=== PATIENT | male | born 1940 | race Caucasian/White ===

== ENCOUNTER 2021-11-03 01:11 | Outpatient (CLI) | payer OTHER, SELFPAY ==
--- NOTE | 2021-11-03 11:00 | DI.NM_ITS ---
APPROVED REPORT Exam: Exercise Treadmill Patient Location: Out-Patient Room/Bed: Stress Nurse: Molly Salazar RN Ordering Provider:JOYCE KING MD Contact Number: [phone] BMI: 25.08 Baseline Rhythm: Sinus Rhythm Indications: Ventricular premature depolarization Medical History Medical History: Hypertension, hyperlipidemia, diabetes, CVD, SC, hypothyroidism Cardiac Medications: Metoprolol succinate, amlodipine, aspirin, atorvastatin, entresto, lisinopril Allergies: NKA Cardiac Risk Factors: Hypertension, hyperlipidemia, diabetes, CVD, family hx Previous Cardiac Procedures: pci w/ stent (02/2011) Pretest Chest Pain Characteristics: None Exercise History: Physically active Physical Disabilities: None Lung Sounds: Clear to auscultation Heart Sounds: Regular Stress Test Details Test: Exercise stress testing was performed using a Serge protocol. Nuclear Acquisition: Rest Tc-99m/Stress Tc-99m 1 day Rest Isotope: Tc-99m Sestamibi. Dose: 10.3 Date: 11/03/2021 Injection Time: 1110 Stress Isotope: Tc-99m Sestamibi. Dose: 29.5 Date: 11/03/2021 Injection Time: 1300 HR Resting HR Supine: 75 bpm Max Heart Rate (APMHR): 137.081720 bpm Resting HR Standin bpm Target HR (85% APMHR): 116.616735 bpm Max HR Achieved: 120 bpm % of APMHR: 87.59 Recovery HR: 80 bpm HR response to stress: Normal HR response to stress Comment: Metoprolol succinate not held prior to test. BP Resting BP Supine: 182/90 mmHg Resting BP Standin/90 mmHg Max BP: 192/94 mmHg Recovery BP: 178/80 mmHg BP response to stress: Normal blood pressure response to stress. ECG Resting ECG: Sinus Rhythm Ectopy: Rare multifocal PVCs Stress ECG: Sinus Tachycardia ST Change: Upsloping ST depression Lead(s): II, III, aVF Stage: [address] Deviation: 1 mm Arrhythmia: None Recovery ECG: Sinus Rhythm Recovery ST Change: Horizontal ST depression Lead(s): II, III, aVF Recovery ST Deviation: 0.5-1 mm Recovery Arrhythmia: None Comment: ST depression resolved by minute 6 of recovery Clinical Reason for Termination: Test stopped by stress RN due to pt safety on treadmill Stress Symptoms: None Exercise duration: 5 min39 sec Highest Stage Reached: Stage 2: 2.5 mph at 12% grade. Exercise capacity: 7.05 METs Salgado Treadmill Score: 4.9 Rate Pressure Product: 03810 Stress ECG Conclusion 1. The resting electrocardiogram showed voltage for left ventricular hypertrophy 2. Patient exercised on the Serge protocol and completed a workload of 7.05 METS 3. Normal heart rate and blood pressure response to exercise. The patient achieved 87% of predicted heart rate for age 4. Electrocardiographically the test was notable for 2 to [address] depression in the inferior leads which returned to baseline by minute 6 of recovery 5. There were no significant dysrhythmia 6. See MPI for results Salgado Treadmill Score is 4.9 which is Moderate risk. Stress Test Summary STAGE Time (mins) Speed (mph) Grade (%) HR BP SYMPTOMS METS Supine 75 182/90 Standing 71 178/90 SpO2 97% 1 3 1.7 10 103 182/92 SpO2 97% 4.6 2 6 2.5 12 119 SpO2 97% 7 1 min recovery 83 192/94 SpO2 96% 3 min recovery 81 184/86 SpO2 98% 6 min recovery 80 178/80 SpO2 98% Test stopped by stress RN due to pt safety on treadmill/unsteady gait. MPI Conclusion There is no evidence of myocardial ischemia. The inferobasal segment appears predominantly infarcted , no redistribution EF 36% with inferobasal wall motion abnormality Radiologist Interpretation Radiologist Interpretation by: Refugio Medellin MD Interpretation Date/Time: 11/04/2021 16:28:20
== END 2021-11-03 01:31 ==
PROVIDERS: Visit Provider Internal Medicine Interventional Cardiology
DX: I49.3 Ventricular premature depolarization (principal); I51.7 Cardiomegaly; I10 Essential (primary) hypertension; E78.5 Hyperlipidemia, unspecified; E11.9 Type 2 diabetes mellitus without complications; I25.10 Atherosclerotic heart disease of native coronary artery without angina pectoris; Z82.49 Family history of ischemic heart disease and other diseases of the circulatory system
CPT/HCPCS: 78452; 93017

== ENCOUNTER 2022-04-06 11:44 | Outpatient (CLI) | payer OTHER, SELFPAY ==
--- NOTE | 2022-04-06 11:15 | DI.RAD_ITS ---
Exam(s) XR KNEE RT 3V AP,LAT,LISANDRO EXAM: XR KNEE RT 3V AP,LAT,LISANDRO CLINICAL HISTORY: right knee pain. TECHNIQUE: 2D digital imaging was performed. COMPARISON: No exams were available for comparison FINDINGS: 3 views No evidence of fracture. However, there are there severe advanced osteoarthritic degenerative change s evident in the medial lateral compartments with aakg-kq-yyxh narrowing and there is also medial sub luxation of the femoral condyles on the tibial plateau, by approximately 1.3 cm. Indeed, the medial meniscus (which exhibits chondrocalcinosis and is therefore visible) is subluxed medial to the medial tibial plateau. In addition to oxnk-hj-blmq narrowing of the medial lateral compartments, there is also an element of invagination of the lateral femoral condyle into the tibial plateau. There also loose intra-articul ar bodies laterally in the joint space. Also prominent calcific density is noted in the suprapatella r bursa, this measuring approximately 2 by 2 cm. IMPRESSION: Severe advanced degenerative changes as described above. Joint effusion. Multiple loose intra-articular bodies, the largest measuring approximately 20 x 20 m illimeters and located in the suprapatellar bursa. DATA REPOSITORY: RADIATION DOSE DELIVERED:
--- OUTSIDE RECORDS SUMMARY | 2022-04-06 11:50 | XMS_ITS | Encounter Summary ---
:1940 Author Organization [facility] [place] [address] Care Team Providers Name Role Phone Ahmet Aguilar MD Primary Care Provider Encounter Details Date Type Department Care Team Description 03/12/2011 Abstract Lacie Villagran, RN [address] [place] [id number] Social History Tobacco Use Types Packs/Day Years Used Date Former Smoker 1 10 Comments: had smoked primarily on weeken ds about 1PPD X about 10 years Alcohol Use Standard Drinks/Week Comments No 0 (1 standard drink = 0.6 oz pure alcoho l) stopped drinking 40 years ago Alcohol Habits Answer Date Recorded How often do you have a drink containing Not asked alcohol? How many drinks containing alcohol do you Not asked have on a typical day when you are drinking? How often do you have six or more drinks Not asked on one occasion? Comment: stopped drinking 40 years ago 02/08/2011 Sex Assigned at Date Recorded Not on file documented as of this encounter Plan of Treatment Not on filedocumented as of this encounter Visit Diagnoses Not on filedocumented in this encounter Care Teams Outsole Beveler Relationship Specialty Start Date End Date Ahmet Aguilar MD PCP - General 09/02/10 [address] [place] [phone] documented as of this encounter
--- OUTSIDE RECORDS SUMMARY | 2022-04-06 11:50 | XMS_ITS | Encounter Summary ---
:1940 Author Organization [facility] [place] [address] Care Team Providers Name Role Phone Ahmet Aguilar MD Primary Care Provider Reason for Visit Reason Comments Coronary Artery Disease Encounter Details Date Type Department Care Team Description 03/17/2011 Office Visit [facility] Kev Negron CAD (coronary artery [address] Huerta MD disease) (Primary Dx) [facility] [phone] CARDIOLOGY DEPT. [place] [id number] Social History Tobacco Use Types Packs/Day Years [...] on file documented as of this encounter Progress Notes Teofilo Wiseman - 03/19/2011 10:42 AM EDT Kev Garcia - 03/17/2011 10:52 AM EDT Scanned note [facility] att documented in this encounter Plan of Treatment Not on filedocumented as of this encounter Visit Diagnoses Diagnosis CAD (coronary artery disease) - Primary Coronary atherosclerosis of unspecified type of vessel, [place] or graft documented in this encounter Care Teams Plate Cutter Relationship Specialty Start Date End Date Ahmet Aguilar MD PCP - General 09/02/[address] [place] [phone] documented as of this encounter
--- OUTSIDE RECORDS SUMMARY | 2022-04-06 11:50 | XMS_ITS | Encounter Summary ---
:1940 Author Organization [facility] Address [facility] [place] [address] Care Team Providers Name Role Phone Ahmet Aguilar MD Primary Care Provider Encounter Details Date Type Department Care Team Description 04/15/2012 Office Visit [facility] Kev Negron CAD (coronary artery [address], disease) (Primary Dx) [facility] [place] [phone] CARDIOLOGY DEPT. [place], [place] [address] Social History Tobacco Use Types Packs/Day Years [...] this encounter Progress Notes Teofilo Wiseman - 04/22/2012 4:34 PM EDT NT Kev Negron - 04/15/2012 9:06 AM EDT Subjective: Patient ID: Ken Gomes is a 72 y.o. male. HPI ROS Objective: Physical Exam Assessment and Plan: No problem-specific visit notes found for this encounter. Scanned note documented in this encounter Plan of Treatment Not on filedocumented as of this encounter Visit Diagnoses Diagnosis CAD (coronary artery disease) - Primary Coronary atherosclerosis of unspecified type of vessel, [place] or graft documented in this encounter Care Teams Broommaker Relationship Specialty Start Date End Date Ahmet Aguilar MD PCP - General 09/02/[address] [place] [phone] documented as of this encounter
--- OUTSIDE RECORDS SUMMARY | 2022-04-06 11:50 | XMS_ITS | Encounter Summary ---
:1940 Demographics Home Phone Preferred Language Unknown Marital Status Unknown Shinto Affiliation Unknown Race Unknown Ethnic Group Unknown Author Organization [facility] Address [address] [place] [address] Care Team Providers Name Role Phone Unavailable Primary Care Provider Unavailable Encounter Details Date Type Department Care Team Description 07/19/2020 Lab Requisition [facility] Outr Resulting Lab, Pathology & Laboratory Provider [facility] [address] [place] [address] Social History Tobacco Use Types Packs/Day Years Used Date Never Assessed Sex Assigned at Date Recorded Not on file documented as of this encounter Plan of Treatment Not on filedocumented as of this encounter Procedures Procedure Name Priority Date/Time Associated Diagnosis Comme nts T3, TOTAL Routine 07/19/2020 8:00 EDT Results for this procedure are i n the results section . documented in this encounter Results T3, TOTAL (07/19/2020 8:00 EDT) Pathologist Sig nature T3, Total 116 97 - 169 ng/dL [facility] Specimen Blood - Venous blood (substance) Performing Organization Address City/State/ZIP Code Phon e Number [facility] [address] [place] [address] SERVICES documented in this encounter Visit Diagnoses Not on filedocumented in this encounter
--- OUTSIDE RECORDS SUMMARY | 2022-04-06 11:50 | XMS_ITS | CCD ---
:1940 Author Care Team Providers Name Role Phone ANGELA CHAVEZ Attending Physician Unavailable UNLISTED REQUESTED, PROVIDER - Er Physician 1 Unavailab le Vital Signs Vital Sign Value Unit Date/Time Recent/Initial? BP Systolic 177 mmHg 08/18/2021 09:28 Initial VS BP Diastolic 87 mmHg 08/18/2021 09:28 Initial VS Heart Rate 70 bpm 08/18/2021 09:28 Initial VS O2 % BldC Oximetry 100 % 08/18/2021 09:28 Initi al VS Body Temperature 36.7 degrees 08/18/2021 09:28 Initial VS Allergies Unknown or Not Available. Procedures Unknown or Not Available. History of Immunizations Unknown or Not Available. Problems Unknown or Not Available. Results Unknown or Not Available. Active Medications Unknown or Not Available. Medications Administered During Visit Unknown or Not Available. 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 Discharge Instructions You were admitted to [facility] on 08/18/2021 09:42 with a principal diagnosis of Unilateral post-traumatic osteoarthri tis, right knee You were discharged from [facility] on 08/18/2021 09:42 Should you have any questions prior to d ischarge, please contact a member of your healthcare team. If you have left the ho spital and have any questions, please contact your primary care physician. Chief Complaint and Reason For Visit Chief Complaint Date of Onset KNEE PAIN Function Status Unknown or Not Available. Plan of Care Unknown or Not Available. Referral/Transition of Care Unknown or Not Available.
--- OUTSIDE RECORDS SUMMARY | 2022-04-06 11:50 | XMS_ITS | Encounter Summary ---
:1940 Author Organization [facility] [place] [address] Care Team Providers Name Role Phone Ahmet Aguilar MD Primary Care Provider Reason for Visit Reason Comments Coronary Artery Disease Encounter Details Date Type Department Care Team Description 07/19/2013 Office Visit [facility] Kev Negron CAD (coronary artery [address] Huerta MD disease) (Primary Dx) [facility] [place] [phone] CARDIOLOGY DEPT. [place] [id number] Social History Tobacco Use Types Packs/Day Years [...] documented as of this encounter Progress Notes Provider, Scanning - 07/20/2013 2:49 PM EDT Kev Negron - 07/19/2013 11:12 AM EDT Scanned note documented in this encounter Plan of Treatment Not on filedocumented as of this encounter Visit Diagnoses Diagnosis CAD (coronary artery disease) - Primary Coronary atherosclerosis of unspecified type of vessel, teller or graft documented in this encounter Care Teams Calender Wind Up Tender Relationship Specialty Start Date End Date Ahmet Aguilar MD PCP - General 09/02/[address] [place] [phone] documented as of this encounter
--- OUTSIDE RECORDS SUMMARY | 2022-04-06 11:50 | XMS_ITS | Encounter Summary ---
:1940 Author Organization [facility] [place] [address] Care Team Providers Name Role Phone Ahmet Aguilar MD Primary Care Provider Reason for Visit Reason Comments Coronary Artery Disease Encounter Details Date Type Department Care Team Description 08/16/2012 Office Visit [facility] Kev Negron CAD (coronary artery [address] Huerta MD disease) (Primary Dx) [facility] [phone] CARDIOLOGY DEPT. [place] [id number] Social History Tobacco Use Types Packs/Day Years [...] documented as of this encounter Progress Notes Kev Negron - 08/16/2012 10:23 AM EST Subjective: Patient ID: Ken Gomes is a 72 y.o. male. HPI ROS Objective: Physical Exam Assessment and Plan: No problem-specific visit notes found for this encounter. Scanned note documented in this encounter Plan of Treatment Not on filedocumented as of this encounter Visit Diagnoses Diagnosis CAD (coronary artery disease) - Primary Coronary atherosclerosis of unspecified type of vessel, [place] or graft documented in this encounter Care Teams Cyber Policy And Strategy Planner Relationship Specialty Start Date End Date Ahmet Aguilar MD PCP - General 09/02/10 [address] [place] [phone] documented as of this encounter
--- OUTSIDE RECORDS SUMMARY | 2022-04-06 11:50 | XMS_ITS | Clinical Summary ---
:1940 Author Organization [facility] [place] [address] Care Team Providers Name Role Phone Ahmet Aguilar MD Primary Care Provider Allergies No known active allergies Medications Medication Sig Dispensed Refills Start Date End Date Status amlodipine (NORVASC) 5 Take 5 mg by mouth 0 Active mg tablet daily. lisinopril Take 20 mg by 0 Activ e (PRINIVIL;ZESTRIL) 20 mouth daily. mg tablet triamcinolone Apply topically 2 0 02/08/2011 Active (KENALOG) 0.1 % cream times daily as needed. Active Problems Problem Noted Date HTN (hypertension) 03/12/2011 GERD (gastroesophageal reflux disease) 03/12/2011 Overweight(278.02) 03/12/2011 Elevated blood sugar 03/12/2011 NSTEMI (non-ST elevated myocardial infarction) 011 Overview: Cardiac cath 02/09/[address] to mid circumflex Hyperlipidemia 02/08/2011 Resolved Problems Problem Noted Date Resolved Date Chest pain 02/08/2011 02/10/2011 Family History Medical History Relation Comments Cardiac disease Brother Cerebrovascular Accident Brother Cerebrovascular Accident Father Relation Status Comments Brother Father Mother Social History Tobacco Use Types Packs/Day Years [...] Assigned at Date Recorded Not on file Last Filed Vital Signs Vital Sign Reading Time Taken Comments Blood Pressure 145/80 02/10/2011 7:00 AM EDT Pulse 58 02/10/2011 7:00 AM EDT Temperature 36.8 ??C (98.2 ??F) 02/10/2011 7:00 AM EDT Respiratory Rate 20 02/10/2011 7:00 AM EDT Oxygen Saturation 96% 02/10/2011 7:00 AM EDT Inhaled Oxygen Concentration - - Weight 86.6 kg (190 lb 14.7 oz) 02/10/2011 6:02 AM EDT Height 172.7 cm (5' 8) 02/08/2011 7:38 PM EDT Body Mass Index 29.03 02/08/2011 7:38 PM EDT Plan of Treatment Health Maintenance Due Date Last Done Comments Covid-19 Vaccine (#1) 1943 Tdap adult 1957 Tetanus vaccine 1957 Zoster vaccine (1 of 2) 01/03/1988 Advance Directive 1993 Pneumoccocal Vaccine: 65+ (1 - PCV) 2003 Influenza (Flu) vaccine (1 of 1 - Influenza standard 06/11/2021 series) Advance Directives Latest Code Status on File Code Status Date Activated Date Inactivated Comments Full Code 02/10/2011 1:10 PM Does patient have decision making capacity? Yes, Order is based on Patients wishes. Full Code 02/08/2011 8:57 PM 02/10/2011 1:10 PM Order Status: Initial Order Does patient have decision making capacity? Yes, Order is based on Patients wishes. Care Teams Chemical Dependency Attendant Relationship Specialty Start Date End Date Ahmet Aguilar MD PCP - General 09/02/10 [address] [place] [phone]
--- OUTSIDE RECORDS SUMMARY | 2022-04-06 11:50 | XMS_ITS | Clinical Summary ---
:1940 Demographics Home Phone Preferred Language Unknown Marital Status Unknown Buddhism Affiliation Unknown Race Unknown Ethnic Group Unknown Author Organization [facility] Address [address] [place] [address] Care Team Providers Name Role Phone Unavailable Primary Care Provider Unavailable Social History Tobacco Use Types Packs/Day Years Used Date Never Assessed Sex Assigned at Date Recorded Not on file Plan of Treatment Health Maintenance Due Date Last Done Comments Fall Risk Screening 2003
--- OUTSIDE RECORDS SUMMARY | 2022-04-06 11:50 | XMS_ITS | Encounter Summary ---
:1940 Author Organization [facility] [place] [address] Care Team Providers Name Role Phone Ahmet Aguilar MD Primary Care Provider Reason for Visit Reason Comments Medication Refill Encounter Details Date Type Department Care Team Description 05/02/2011 Refill Intermediate Cardiac Care Unit Lilliam Mcghee APRN [facility] C[facility]OLOGY [facility]PT. [facility] [place] [address] [place] [address] [phone] Social History Tobacco Use Types Packs/Day Years [...] on filedocumented in this encounter Care Teams Biztalk Developer Relationship Specialty Start Date End Date Ahmet Aguilar MD PCP - General 09/02/10 [address] [place] [phone] documented as of this encounter
--- OUTSIDE RECORDS SUMMARY | 2022-04-06 11:50 | XMS_ITS | Encounter Summary ---
:1940 Author Organization [facility] [place] [address] Care Team Providers Name Role Phone Ahmet Aguilar MD Primary Care Provider Reason for Visit Reason Comments Coronary Artery Disease Encounter Details Date Type Department Care Team Description 08/15/2013 Office Visit [facility] Kev Negron CAD (coronary artery [address] Huerta MD disease) (Primary Dx) [facility] [phone] CARDIOLOGY DEPT. [place] [id number] Social History Tobacco Use Types Packs/Day Years [...] this encounter Progress Notes Provider, Scanning - 08/17/2013 11:32 AM EST Kev Negron - 08/15/2013 9:50 AM EST Scanned note documented in this encounter Plan of Treatment Not on filedocumented as of this encounter Visit Diagnoses Diagnosis CAD (coronary artery disease) - Primary Coronary atherosclerosis of unspecified type of vessel, [place] or graft documented in this encounter Care Teams Digital Printer Operator Relationship Specialty Start Date End Date Ahmet Aguilar MD PCP - General 09/02/[address] [place] [phone] documented as of this encounter
--- OUTSIDE RECORDS SUMMARY | 2022-04-06 11:50 | XMS_ITS ---
:1940 Author Care Team Providers Name Role Phone OLIVER KING MD Bank Messenger [phone] ANGELA CHAVEZ MD Primary Care Provider [phone] Allergies Code Code System Name Reaction Severity Status Onset NKDA ? Notes: No seafood allergy. No contrast allergy. Medications Name Status Start Date Stop Date ? ? amlodipine 10 mg tablet Active ? Not avai lable Take 1 tablet every day by oral route for 90 days. amlodipine 5 mg tablet Completed ? 0 Take 1 tablet every day by oral route for 90 days. aspirin 325 mg tablet Completed ? 12/21/2019 Take 1 tablet every day by oral route. aspirin 81 mg capsule Active ? Not availa ble Take 1 capsule every day by oral route. atorvastatin 40 mg tablet Completed ? 2020 TAKE 1 TABLET BY MOUTH ONCE DAILY IN THE EVENING FOR 90 DAYS atorvastatin 80 mg tablet Completed ? 2021 Take 1 tablet every day by oral route. Calcium 500 + D Completed ? 12/21/2019 1 tablet every day cephalexin 500 mg capsule Completed ? 2021 Take 1 capsule every 6 hours by oral route for 7 days. chlorthalidone 25 mg tablet Active ? Not available Take 1 tablet every day by oral route. Entresto 24 mg-26 mg tablet Completed ? 11/12 Take 1 tablet twice a day by oral route. Stop Lisinopril 48 hrs prior to starting Entresto Entresto 49 mg-51 mg tablet Active ? Not available Take 1 tablet twice a day by oral route. Farxiga 10 mg tablet Active ? Not availab le Take 1 tablet every day by oral route. Take 1 tablet once daily. Fish Oil 1,000 mg (120 mg-180 mg) capsule Active ? Not available Take 1 capsule every day by oral route. garlic 1,500 mg capsule Active ? Not avai lable Take 1 capsule every day by oral route. hawthorn han 565 mg capsule Active ? No t available Take by oral route. lisinopril 20 mg tablet Completed ? 01/30/20 21 TAKE 1 TABLET BY MOUTH ONCE DAILY FOR 90 DAYS lisinopril 40 mg tablet Completed ? 10/28/19 22 Take 1 tablet every day by oral route. metformin 500 mg tablet Completed ? 07/25/20 18 Take 2 tablets twice a day by oral route for 90 days. metoprolol succinate ER 25 mg tablet,extended release 24 hr Acti ve ? Not available Take one tablet by mouth once daily metoprolol succinate ER 50 mg capsule sprinkle, ext. release 24 hr Completed ? 07/25/2019 Take 1 capsule every day by oral route for 90 days. metoprolol succinate ER 50 mg tablet,extended release 24 hr Comp leted ? 11/07/2019 Take 1 tablet every day by oral route for 90 days. metoprolol tartrate 100 mg tablet Completed 11/12/2009 09/02/2010 multivitamin Active ? Not available 1 tablet daily Plavix 75 mg tablet Completed 09/08/2011 03/08/2012 1 Tablet: daily Pravachol 40 mg tablet Completed 02/18/2011 1 1 (one) Tablet: daily simvastatin 40 mg tablet Completed ? 020 Take 1 tablet every day by oral route for 90 days. triamcinolone acetonide 0.1 % topical cream Completed 11/201204/26/2015 1 (one) Application(s): two times daily, as needed Viagra 100 mg tablet Completed ? 12/21/2019 Take 1 tablet every day by oral route as needed for 90 days. vitamin E (dl, acetate) 180 mg (400 unit) capsule Completed ? 12/21/2019 Take 1 capsule every day by oral route. zinc Completed ? 12/21/2019 1 every day Notes: takes balsamic vinegar. Problems Name Status Onset Date Source ? Coronary Arteriosclerosis in [place] Artery Active 07/25 ? Osteoarthritis Active 08/15/2021 ? Administration of Influenza Vaccine Active 08/15/2021 ? Adult Health Examination Active 08/15/2021 ? Hypothyroidism Active ? History Type 2 Diabetes Mellitus without Complication Active ? History Mixed Hyperlipidemia Active ? History Impotence Active ? History Hypertensive Disorder Active ? History Myocardial Infarction Unknown ? History Flexural Psoriasis Active ? History Adult Health Examination Unknown ? History Screening for Malignant Neoplasm of Prostate Unknown ? History Procedures Date Name Performed by ? 02/09/2011 Cardiac Catheterization Information not available Notes: mid LCX stent ? Appendectomy Information not avai lable 07/28/2021 US, Echocardiogram, Transthoracic, [facility] Radiology (Internal) Complete [address], [place] [id number] (Work Place) 07/28/2021 Holter Monitor [facility] Cardio pulmonary [address], [place] [phone] (Work Place) 08/15/2021 XR, Knee, 4 or More View [facility] - Radiology [address] [facility], [place] [address] (Work Place) 10/28/2021 Pharmacologic Nuclear Stress Test Xray N [facility] [address] [place], [place] [address] (Work Place) Results Lab Results Date Name Specimen Result Interpretation Description Value Range Status Address ? 12/22/2021 CBC W/ Auto BLD ? Wbc 7.7 10*3/uL 5.0-10.0 F inal [place] Diff 10*3/uL [facility] L ab (Internal) : [address] t ? ? BLD ? Rbc 5.35 10*6/uL 4.60-6.00 Final N orth 10*6/uL [facility] L ab (Internal) : [address] t ? ? BLD ? Hgb 14.2 g/dL 14.0-18.0 Final Nort h g/dL [facility] L ab (Internal) : [address] t ? ? BLD ? Hct 45.1 % 41.0-51.[address] [facility] L ab (Internal) : [address] t ? ? BLD ? Mcv 84.3 fL 80.0-96.0 Final [facility] L ab (Internal) : [address] t ? ? BLD ? Mch 26.5 pg 26.0-32.0 Final [facility] (Internal) : [address] t ? ? BLD ? Mchc 31.5 g/dL 31.0-35.0 Final Nort h g/dL [facility] L ab (Internal) : [address] ? ? BLD High Rdw 16.1 % 11.5-14.5 Final [facility] L ab (Internal) : [address] ? ? BLD ? Plt 296 10*3/uL 130-450 Final Nort h 10*3/uL [facility] L ab (Internal) : [address] ? ? BLD ? Anc 5.56 10*3/uL ? Final Nort h [facility] L ab (Internal) : [address] ? ? BLD High Nlr 4.15 0.00-3.20 Final [facility] L ab (Internal) : [address] t ? ? BLD ? Neutro 71.9 % 40.0-75.[address] [facility] L ab (Internal) : [address] ? ? BLD Low Lymph 17.3 % 20.0-50.[address] [facility] L ab (Internal) : [address] ? ? BLD ? [place] 8.5 % 2.0-10.[address] [facility] L ab (Internal) : [address] ? ? BLD ? Eos 1.7 % 1.0-6.0 % Final [facility] L ab (Internal) : [address] ? ? BLD ? Baso 0.3 % 0.0-1.0 % Final [facility] L ab (Internal) : [address] ? ? BLD ? Ig 0.3 % 0.0-0.9 % Final [facility] L ab (Internal) : [address] t 12/22/2021 Renal S High g/r 124 mg/dL 74-106 Final Nor th Function mg/dL [facility] L ab Serum (Internal) : [address] t ? ? S High Bun 25 mg/dL 7-18 Final North mg/dL [facility] L ab (Internal) : [address] t ? ? S High Crea 1.5 mg/dL 0.7-1.3 Final North mg/dL [facility] L ab (Internal) : [address] ? ? S ? Ca 9.2 mg/dL 8.5-10.1 Final [facility] mg/dL [facility] (Internal) : [address] t ? ? S ? Phos 3.6 mg/dL 2.6-4.7 Final [facility] mg/dL [facility] (Internal) : [address] t ? ? S Low Na 135 mmol/L 136-145 Final [place] mmol/L [facility] (Internal) : [address] t ? ? S ? K 4.5 mmol/L 3.5-5.1 Final [facility] mmol/L [facility] (Internal) : [address] t ? ? S ? Cl 100 mmol/l 98-107 Final [place] mmol/l [facility] L ab (Internal) : [address] t ? ? S ? Tco2 27.7 mmol/L 21.0-32.0 Final No rth mmol/L [facility] (Internal) : [address] t ? ? S ? Alb 3.8 g/dL 3.4-5.0 Final [facility] g/dL [facility] (Internal) : [address] t ? ? S Low GFR 46 >89 Final [place] (Calc) [facility] L ab (Internal) : [address] 12/22/2021 Hepatic S ? Tbil 0.40 mg/dL 0.20-1.00 Final North Function mg/dL [facility] L ab Serum (Internal) : [address] t ? ? S ? Dbil 0.10 mg/dL 0.00-0.20 Final Nor th mg/dL [facility] (Internal) : [address] t ? ? S ? Alp 110 U/L 46-116 Final North U/L [facility] L ab (Internal) : [address] t ? ? S ? Alt 19 U/L 16-63 U/L Final [place] (Sgpt) [facility] L ab (Internal) : [address] t ? ? S ? Ast 16 U/L 15-37 U/L Final [place] (Sgot) [facility] L ab (Internal) : [address] t ? ? S ? Ggt 20 U/L 15-85 U/L Final [facility] L ab (Internal) : [address] t ? ? S ? Tp 8.1 g/dL 6.4-8.2 Final [place] g/dL [facility] L ab (Internal) : [address] t ? ? S ? Alb 3.8 g/dL 3.4-5.0 Final [place] g/dL [facility] L ab (Internal) : [address] 12/22/2021 BNP (B-type S ? Nt-bnp 332 pg/mL 0-450 Leandra l [place] Natriuretic pg/mL Count ry Peptide), Hospita l Lab Prohormone (Inter nal): N-terminal, [address], [place] Immunoassay , Blood 08/15/2021 Urinalysis, UR ? UA-color yellow pale Final [place] Dipstick, yellow [facility] L ab Micro (Internal) : [address] ? ? UR ? UA-appear clear clear Final [facility] ab (Internal) : [address] t ? ? UR ? UA-spec 1.020 1.003-1.0 Final [place] Grav 35 [facility] L ab (Internal) : [address] ? ? UR ? UA-pH 6.5 [pH] 4.6-8.0 Final [place] [pH] [facility] ab (Internal) : [address] ? ? UR ABNORMAL UA-leuk moderate negative Final No rth Est [facility] L ab (Internal) : [address] t ? ? UR ? UA-nitrit negative negative Final No rth e [facility] L ab (Internal) : [address] ? ? UR ? UA-prot negative negative Final Nort [facility] L ab (Internal) : [address] t ? ? UR ? UA-gluc negative negative Final Nort [facility] L ab (Internal) : [address] ? ? UR ? UA-ketone negative negative Final No rth [facility] L ab (Internal) : [address] ? ? UR ? UA-urobil normal normal Final [facility] ab (Internal) : [address] ? ? UR ? UA-bili negative negative Final Nort [facility] (Internal) : [address] ? ? UR ? UA-blood negative negative Final [facility] (Internal) : [address] 08/15/2021 Urinalysis, UR ABNORMAL UA-WBC 10-25 [hpf] 0-3 [hp f] Final [place] Microscopic Count [facility] ab (Internal) : [address] ? ? UR ? UA-RBC 0-2 [hpf] 0-2 [hpf] Final [facility] ab (Internal) : [address] ? ? UR ABNORMAL UA-bacter few [hpf] none seen Final [place] ia [hpf] [facility] (Internal) : [address] ? ? UR ? UA-epithe rare [hpf] none seen Final [place] lial [hpf] [facility] (Internal) : [address] ? ? UR ? UA-mucus none seen none seen Final N orth [hpf] [hpf] [facility] (Internal) : [address] 08/15/2021 Culture UR ? Final microbiology ? Final [place] (Burns results [facility] Lab Urine (Internal) : [address] 08/15/2021 Urinalysis, ? Color Yellow ? ? P _nc Primary Dipstick, Care Reflex [place]l [place] Micro ns: [address], [place] ? ? ? Appearanc Clear ? ? P_nc P rimary e Care [place]l ea ns: [address], [place] ? ? ? Glucose Normal ? ? P_nc Afshan lexie Care [place]l ea ns: [address], [place] ? ? ? Bilirubin Negative ? ? P_nc Primary Care [place]l ea ns: [address], [place] ? ? ? Ketones Negative ? ? P_nc P rimary Care [place]l ea ns: [address], [place] ? ? ? Specific 1.020 ? ? P_nc Pr imary [place] Care [place]a ns: [address], [place] ? ? ? Blood Negative ? ? P_nc Afshan lexie Care [place]l ea ns: [address], [place] ? ? ? Ph 6.5 ? ? P_nc Prima ry Care [place]l ea ns: [address], [place] ? ? ? Protein Trace ? ? P_nc Afshan lexie Care [place]l ea ns: [address], [place] ? ? ? Urobilino 0.2 ? ? P_nc P rimary gen Care [place]l ea ns: [address], [place] ? ? ? Nitrite negative ? ? P_nc P rimary Care [place]l ea ns: [address], [place] ? ? ? Leukocyte Moderate ? ? P_nc Primary Esterase Care [place]l ea ns: [address], [place] 07/28/2021 CBC W/ Auto BLD ? Wbc 6.8 10*3/uL 5.0-10.0 F inal [place] Diff 10*3/uL [facility] (Internal[facility] : [address] ? ? BLD ? Rbc 5.29 10*6/uL 4.60-6.00 Final N orth 10*6/uL [facility] (Internal) : [address] ? ? BLD Low Hgb 12.9 g/dL 14.0-18.0 Final Nort h g/dL [facility] L ab (Internal) : [address] ? ? BLD ? Hct 42.7 % 41.0-51.[address] [facility] L ab (Internal) : [address] ? ? BLD ? Mcv 80.7 fL 80.0-96.0 Final [facility] L ab (Internal) : [address] ? ? BLD Low Mch 24.4 pg 26.0-32.0 Final [facility] (Internal) : [address] ? ? BLD Low Mchc 30.2 g/dL 31.0-35.0 Final Nort h g/dL [facility] L ab (Internal) : [address] t ? ? BLD High Rdw 18.7 % 11.5-14.[address] [facility] L ab (Internal) : [address] ? ? BLD ? Plt 303 10*3/uL 130-450 Final Nort h 10*3/uL [facility] L ab (Internal) : [address] t ? ? BLD ? Anc 4.63 10*3/uL ? Final Nort h [facility] L ab (Internal) : [address] ? ? BLD High Nlr 3.76 0.00-3.20 Final [facility] L ab (Internal) : [address] ? ? BLD ? Neutro 68.7 % 40.0-75.[address] [facility] L ab (Internal) : [address] ? ? BLD Low Lymph 18.2 % 20.0-50.[address] [facility] L ab (Internal) : [address] ? ? BLD ? [place] 9.2 % 2.0-10.[address] [facility] L ab (Internal) : [address] ? ? BLD ? Eos 3.1 % 1.0-6.0 % Final [facility] L ab (Internal) : [address] ? ? BLD ? Baso 0.7 % 0.0-1.0 % Final [facility] L ab (Internal) : [address] ? ? BLD ? Ig 0.1 % 0.0-0.9 % Final [facility] L ab (Internal) : [address] t 07/28/2021 RBC BLD ? An[place] small ? Final [place] Morphology, Count Blood Hospital L ab (Internal) : [address] t 07/28/2021 Renal S High g/r 123 mg/dL 74-106 Final Nor th Function mg/dL [facility] L ab Serum (Internal) : [address] ? ? S ? Bun 12 mg/dL 7-18 Final North mg/dL [facility] L ab (Internal) : [address] ? ? S ? Crea 1.1 mg/dL 0.7-1.3 Final [facility] mg/dL [facility] (Internal) : [address] t ? ? S ? Ca 9.2 mg/dL 8.5-10.1 Final [facility] mg/dL [facility] (Internal) : [address] ? ? S ? Phos 2.9 mg/dL 2.6-4.7 Final North mg/dL [facility] L ab (Internal) : [address] t ? ? S ? Na 139 mmol/L 136-145 Final [place] mmol/L [facility] L ab (Internal) : [address] t ? ? S ? K 4.6 mmol/L 3.5-5.1 Final [place] mmol/L [facility] L ab (Internal) : [address] t ? ? S ? Cl 105 mmol/l 98-107 Final [place] mmol/l [facility] L ab (Internal) : [address] t ? ? S ? Tco2 27.2 mmol/L 21.0-32.0 Final No rth mmol/L [facility] (Internal) : [address] t ? ? S ? Alb 3.7 g/dL 3.4-5.0 Final [place] g/dL [facility] (Internal) : [address] ? ? S Low GFR 67 >89 Final [place] (Calc) [facility] L ab (Internal) : [address] t 07/28/2021 Magnesium, S ? mg 2.2 mg/dL 1.8-2.4 Final [place] QN, Serum mg/dL Country or Plasma Hospita l Lab (Internal) : [address] t 07/28/2021 Troponin I, S ? Trop 10.27 pg/mL 0.00-60.4 Final [place] Serum or 0 pg/mL [facility] Plasma Hospital L ab (Internal) : [address] 07/28/2021 BNP (B-type S High Nt-bnp 554 pg/mL 0-450 Leandra l [place] Natriuretic pg/mL Count ry Peptide), Hospita l Lab Prohormone (Inter nal): N-terminal, [address], [place] Immunoassay , Blood 07/28/2021 TSH, Serum S High Tsh 5.90 uIU/mL 0.36-3.74 F inal North or Plasma uIU/mL [facility] L [facility] (Internal) : [address] 04/30/2021 Hepatic S ? Tbil 0.3 mg/dL 0.2-1.3 Final N orth Function mg/dL [facility] L ab Serum (Internal) : [address] ? ? S ? Dbil 0.1 mg/dL 0.0-0.3 Final North mg/dL [facility] L ab (Internal) : [address] t ? ? S ? Alp 93 U/L 38-126 Final North U/L [facility] L ab (Internal) : [address] t ? ? S Low Alt 12 U/L 21-72 U/L Final [place] (Sgpt) [facility] L ab (Internal) : [address] t ? ? S ? Ast 29 U/L 17-59 U/L Final [place] (Sgot) [facility] L ab (Internal) : [address] t ? ? S ? Ggt 19 U/L 15-73 U/L Final [facility] L ab (Internal) : [address] t ? ? S ? Tp 7.4 g/dL 6.3-8.2 Final North g/dL [facility] L ab (Internal) : [address] t ? ? S ? Alb 4.1 g/dL 3.5-5.0 Final [place] g/dL [facility] L ab (Internal) : [address] 04/30/2021 Lipid S ? Chol 162 mg/dL 50-200 Final Nor th Panel, mg/dL [facility] L ab (Internal) : [address] t ? ? S High Trig 183 mg/dL 10-150 Final North mg/dL [facility] L ab (Internal) : [address] t ? ? S ? Hdl 41 mg/dL 40-60 Final North mg/dL [facility] L ab (Internal) : [address] t ? ? S ? Ldl 84 mg/dL 0-130 Final [place] mg/dL [facility] L ab (Internal) : [address] 01/29/2021 Lipid S High Chol 210 mg/dL 50-200 Final Nor th Panel, mg/dL [facility] L ab (Internal) : [address] t ? ? S High Trig 359 mg/dL 10-150 Final North mg/dL [facility] L ab (Internal) : [address] t ? ? S ? Hdl 47 mg/dL 40-60 Final [place] mg/dL [facility] L ab (Internal) : [address] t ? ? S ? Ldl 91 mg/dL 0-130 Final [place] mg/dL [facility] L ab (Internal) : [address] 01/29/2021 Hepatic S ? Tbil 0.3 mg/dL 0.2-1.3 Final N orth Function mg/dL [facility] L ab Serum (Internal) : [address] t ? ? S ? Dbil 0.2 mg/dL 0.0-0.3 Final [place] mg/dL [facility] L ab (Internal) : [address] t ? ? S ? Alp 112 U/L 38-126 Final [place] U/L [facility] L ab (Internal) : [address] t ? ? S Low Alt 12 U/L 21-72 U/L Final [place] (Sgpt) [facility] L ab (Internal) : [address] t ? ? S ? Ast 30 U/L 17-59 U/L Final [place] (Sgot) [facility] L ab (Internal) : [address] t ? ? S ? Ggt 25 U/L 15-73 U/L Final [facility] L ab (Internal) : [address] t ? ? S ? Tp 7.4 g/dL 6.3-8.2 Final [place] g/dL [facility] L ab (Internal) : [address] t ? ? S ? Alb 4.1 g/dL 3.5-5.0 Final [place] g/dL [facility] L ab (Internal) : [address] 07/19/2020 CBC W/ Auto BLD ? Wbc 6.4 10*3/uL 5.0-10.0 F inal [place] Diff 10*3/uL [facility] (Internal) : [address] ? ? BLD ? Rbc 5.29 10*6/uL 4.60-6.00 Final N orth 10*6/uL [facility] L ab (Internal) : [address] ? ? BLD ? Hgb 15.2 g/dL 14.0-18.0 Final Nort h g/dL [facility] L ab (Internal) : [address] ? ? BLD ? Hct 47.8 % 41.0-51.[address] [facility] L ab (Internal) : [address] ? ? BLD ? Mcv 90.4 fL 80.0-96.0 Final [facility] L ab (Internal) : [address] ? ? BLD ? Mch 28.7 pg 26.0-32.0 Final [facility] (Internal) : [address] ? ? BLD ? Mchc 31.8 g/dL 31.0-35.0 Final Nort h g/dL [facility] L ab (Internal) : [address] ? ? BLD ? Rdw 14.2 % 11.5-14.[address] [facility] L ab (Internal) : [address] ? ? BLD ? Plt 284 10*3/uL 130-450 Final Nort h 10*3/uL [facility] L ab (Internal) : [address] ? ? BLD ? Anc 3.71 10*3/uL ? Final Nort h [facility] L ab (Internal) : [address] ? ? BLD ? Nlr 2.21 0.00-3.20 Final [facility] L ab (Internal) : [address] ? ? BLD ? Neutro 57.6 % 40.0-75.[address] [facility] L ab (Internal) : [address] ? ? BLD ? Lymph 26.1 % 20.0-50.[address] [facility] L ab (Internal) : [address] ? ? BLD High [place] 10.9 % 2.0-10.0 Final [facility] % [facility] (Internal) : [address] ? ? BLD ? Eos 4.5 % 1.0-6.0 % Final [facility] L ab (Internal) : [address] ? ? BLD ? Baso 0.6 % 0.0-1.0 % Final [facility] L ab (Internal) : [address] ? ? BLD ? Ig 0.3 % 0.0-0.9 % Final [facility] L ab (Internal) : [address] 07/19/2020 CMP, Serum S High g/r 138 mg/dL 74-106 Final North or Plasma mg/dL [facility] (Internal) : [address] ? ? S ? Bun 15 mg/dL 9-20 Final [place] mg/dL [facility] (Internal) : [address] ? ? S ? Crea 0.90 mg/dL 0.66-1.25 Final Nor th mg/dL [facility] (Internal) : [address] ? ? S ? Ca 9.3 mg/dL 8.4-10.2 Final [place] mg/dL [facility] (Internal) : [address] ? ? S ? Na 141 mmol/L 137-145 Final [place] mmol/L [facility] (Internal) : [address] ? ? S ? K 4.3 mmol/L 3.5-5.1 Final [place] mmol/L [facility] (Internal) : [address] ? ? S ? Cl 105 mmol/L 98-107 Final [place] mmol/L [facility] (Internal) : [address] ? ? S ? Tco2 24.0 mmol/L 22.0-30.0 Final No rth mmol/L [facility] (Internal) : [address] ? ? S ? Tp 7.9 g/dL 6.3-8.2 Final [place] g/dL [facility] (Internal) : [address] ? ? S ? Alb 4.5 g/dL 3.5-5.0 Final [place] g/dL [facility] (Internal) : [address] ? ? S ? Tbil 0.6 mg/dL 0.2-1.3 Final [place] mg/dL [facility] (Internal) : [address] ? ? S ? Alp 96 U/L 38-126 Final [place] U/L [facility] L ab (Internal) : [address] ? ? S Low Alt 17 U/L 21-72 U/L Final [place] (Sgpt) [facility] L ab (Internal) : [address] t ? ? S ? Ast 30 U/L 17-59 U/L Final [place] (Sgot) [facility] L ab (Internal) : [address] [facility] 07/19/2020 Lipid S High Chol 228 mg/dL 50-200 Final Nor th Panel, mg/dL [facility] Serum [facility] L ab (Internal) : [address] ? ? S High Trig 166 mg/dL 10-150 Final [place] mg/dL [facility] L ab (Internal) : [address] t ? ? S ? Hdl 45 mg/dL 40-60 Final [place] mg/dL [facility] L ab (Internal) : [address] t ? ? S High Ldl 150 mg/dL 0-130 Final North mg/dL [facility] (Internal) : [address] [facility] HbA1C BLD High Ha1C 6.5 % 4.0-6.0 % Final Nor th (Hemoglobin Count ry a1C), Blood Hospi jose Lab (Internal) : [address] [facility] 07/19/2020 T4, Free, S ? Ft4 0.90 NG/dL 0.78-2.19 Fin al [place] Serum NG/dL [facility] L [facility] (Internal) : [address] 07/19/2020 Microalbumi UR High Malb 95.1 mg/L 5.0-16.7 Fin al [place] n, Urine mg/L [facility] (Internal) : [address] t ? ? UR ? U-crea, 74 mg/dL 30-125 Final North Spot mg/dL [facility] (Internal) : [address] ? ? UR High Microalb/ 128.7 ug/mg 0.0-30.0 Final North crea Ratio ug/mg Countr y [facility] [address] [facility] TSH, Serum S High Tsh 7.70 u[IU]/mL 0.47-4.68 Final [place] or Plasma u[IU]/mL Count Hospital L ab (Internal) : [address] [facility] 07/19/2020 PSA, Serum S ? PSA Scrn 1.7 NG/mL 0.0-4.0 Fi nal [place] or Plasma NG/mL [facility] L ab (Internal) : [address] [facility] 07/19/2020 T3, Total, S ? T3, Total 116 NG/dL 97-169 Fi nal [place] Serum NG/dL [facility] (Internal) : [address] 07/20/2019 Lipid S High Chol 223 mg/dL 50-200 Final Nor th Panel, mg/dL [facility] L ab (Internal) : [address] ? ? S High Trig 185 mg/dL 10-150 Final [place] mg/dL [facility] L ab (Internal) : [address] t ? ? S Low Hdl 38 mg/dL 40-60 Final [place] mg/dL [facility] (Internal) : [address] t ? ? S High Ldl 148 mg/dL 0-130 Final [place] mg/dL [facility] (Internal) : [address] 07/20/2019 CMP, Serum S High g/r 112 mg/dL 74-106 Final [place] or Plasma mg/dL [facility] (Internal) : [address] t ? ? S - Bun 16 mg/dL 9-20 Final [place] mg/dL [facility] (Internal) : [address] t ? ? S - Crea 0.90 mg/dL 0.66-1.25 Final Nor th mg/dL [facility] (Internal) : [address] t ? ? S - Ca 9.1 mg/dL 8.4-10.2 Final [facility] mg/dL [facility] : [address] t ? ? S - Na 142 mmol/L 137-145 Final [place] mmol/L [facility] ([facility]) : [address] t ? ? S - K 5.1 mmol/L 3.5-5.1 Final [place] mmol/L [facility] ([facility]) : [address] t ? ? S High Cl 108 mmol/L 98-107 Final [place] mmol/L [facility] ([facility]) : [address] t ? ? S - Tco2 24.0 mmol/L 22.0-30.0 Final No rth mmol/L [facility] (Internal) : [address] t ? ? S - Tp 7.2 g/dL 6.3-8.2 Final [place] g/dL [facility] ([facility]) : [address] t ? ? S - Alb 3.8 g/dL 3.5-5.0 Final [place] g/dL [facility] ([facility]) : [address] t ? ? S - Tbil 0.4 mg/dL 0.2-1.3 Final [place] mg/dL [facility] ([facility]) : [address] t ? ? S - Alp 93 U/L 38-126 Final [place] U/L [facility] ([facility]) : [address] t ? ? S - Alt 29 U/L 21-72 U/L Final [place] (Sgpt) [facility] (Internal) : [address] t ? ? S - Ast 35 U/L 17-59 U/L Final [place] (Sgot) [facility] (Internal) : [address] t 07/18/2018 CBC W/ Auto BLD - Wbc 7.9 10*3/uL 5.0-10.0 F inal [place] Diff 10*3/uL [facility] (Internal) : [address] ? ? BLD - Rbc 5.45 10*6/uL 4.60-6.00 Final N orth 10*6/uL [facility] (Internal) : [address] t ? ? BLD - Hgb 15.7 g/dL 14.0-18.0 Final Nort h g/dL [facility] (Internal) : [address] ? ? BLD - Hct 49.1 % 41.0-51.0 Final [facility] L [facility] (Internal) : [address] ? ? BLD - Mcv 90.1 fL 80.0-96.0 Final [facility] L ab (Internal) : [address] ? ? BLD - Mch 28.8 pg 26.0-32.0 Final [facility] L [facility] (Internal) : [address] ? ? BLD - Mchc 32.0 g/dL 31.0-35.0 Final Nort h g/dL [facility] (Internal) : [address] ? ? BLD - Rdw 14.0 % 11.5-14.[address] [facility] L ab (Internal) : [address] ? ? BLD - Plt 258 10*3/uL 130-450 Final Nort h 10*3/uL [facility] (Internal) : [address] t ? ? BLD - Anc 5.51 10*3/uL ? Final Nort h [facility] (Internal) : [address] ? ? BLD - Neutro 70.0 % 40.0-75.[address] [facility] L ab (Internal) : [address] ? ? BLD Low Lymph 15.9 % 20.0-50.0 Final [facility] L [facility] (Internal) : [address] ? ? BLD - [place] 8.2 % 2.0-10.0 Final [facility] (Internal) : [address] ? ? BLD - Eos 4.9 % 1.0-6.0 % Final [facility] L ab (Internal) : [address] ? ? BLD - Baso 0.6 % 0.0-1.0 % Final [facility] L [facility] (Internal) : [address] ? ? BLD - Ig 0.4 % 0.0-0.9 % Final [place] [facility] (Internal) : [address] 07/18/2018 Lipid S High Chol 235 mg/dL 50-200 Final Nor th Panel, mg/dL [facility] ([facility] : [address] ? ? S High Trig 209 mg/dL 10-150 Final [place] mg/dL [facility] ([facility]) : [address] ? ? S - Hdl 42 mg/dL 40-60 Final [place] mg/dL [facility] (Internal) : [address] ? ? S High Ldl 151 mg/dL 0-130 Final [place] mg/dL [facility] (Internal) : [address] 07/18/2018 CMP, Serum S High g/r 133 mg/dL 74-106 Final [place] or Plasma mg/dL [facility] (Internal) : [address] ? ? S - Bun 15 mg/dL 9-20 Final [place] mg/dL [facility] (Internal) : [address] ? ? S - Crea 1.00 mg/dL 0.66-1.25 Final [place] mg/dL [facility] (Internal) : [address] ? ? S - Ca 9.3 mg/dL 8.4-10.2 Final [place] mg/dL [facility] (Internal) : [address] ? ? S - Na 139 mmol/L 137-145 Final [place] mmol/L [facility] (Internal) : [address] ? ? S - K 4.2 mmol/L 3.5-5.1 Final [place] mmol/L [facility] (Internal) : [address] ? ? S - Cl 103 mmol/L 98-107 Final [place] mmol/L [facility] (Internal) : [address] ? ? S - Tco2 29.0 mmol/L 22.0-30.0 Final No rth mmol/L [facility] (Internal) : [address] ? ? S - Tp 7.7 g/dL 6.3-8.2 Final [place] g/dL [facility] (Internal) : [address] ? ? S - Alb 4.3 g/dL 3.5-5.0 Final [place] g/dL [facility] (Internal) : [address] [place] ? ? S - Tbil 0.7 mg/dL 0.2-1.3 Final [place] mg/dL [facility] (Internal) : [address] ? ? S - Alp 91 U/L 38-126 Final [place] U/L [facility] L [facility] (Internal) : [address] [place]io ? ? S Low Alt 19 U/L 21-72 U/L Final [place] (Sgpt) [facility] (Internal) : [address] [place] ? ? S - Ast 35 U/L 17-59 U/L Final [place] (Sgot) [facility] (Internal) : [address] 07/18/2018 T4, Free, S - Ft4 1.03 NG/dL 0.78-2.19 Fin al [place] Serum NG/dL [facility] (Internal) : [address] [place] 07/18/2018 Microalbumi UR High Malb 138.7 mg/L 5.0-16.7 Fi nal [place] n, Urine mg/L [facility] (Internal) : [address] [place]io ? ? UR - U-crea, 79 mg/dL 30-125 Final [place] Spot mg/dL [facility] (Internal) : [address] t ? ? UR High Microalb/ 175.6 ug/mg 0.0-30.0 Final [place] crea Ratio ug/mg [facility] L [facility] (Internal) : [address] 07/18/2018 HbA1C BLD High Ha1C 6.9 % 4.0-6.0 % Final [facility] th (Hemoglobin Count ry a1C), Blood Hospi jose Lab (Internal) : [address] 07/18/2018 TSH, Serum S - Tsh 4.52 u[IU]/mL 0.47-4.68 Final [place] or Plasma u[IU]/mL [facility] L [facility] (Internal) : [address] 07/18/2018 T3, Total, S - T3, Total 124 NG/dL 97-169 Fi nal [place] Serum NG/dL [facility] (Internal) : [address] 12/01/2017 Microalbumi UR High Malb 78.0 mg/L 5.0-16.7 Fin al [place] n, Urine mg/L [facility] (Internal) : [address] ? ? UR ? U-crea, 90 mg/dL 30-125 Final [place] Spot mg/dL [facility] (Internal) : [address] ? ? UR High Microalb/ 86.6 ug/mg 0.0-30.0 Final [place] crea Ratio ug/mg Countr y Hospital L ab (Internal) : [address] 12/01/2017 PSA, Serum S ? PSA Scrn 1.6 NG/mL 0.0-4.0 Fi [facility] or Plasma NG/mL [facility] (Internal) : [address] 12/01/2017 Lipid S High Chol 216 mg/dL 50-200 Final Nor th Panel, mg/dL [facility] L [facility] (Internal) : [address] ? ? S High Trig 162 mg/dL 10-150 Final [place] mg/dL [facility] (Internal) : [address] t ? ? S ? Hdl 44 mg/dL 40-60 Final [place] mg/dL [facility] (Internal) : [address] t ? ? S High Ldl 140 mg/dL 0-130 Final [place] mg/dL [facility] (Internal) : [address] 12/01/2017 CBC W/ Auto BLD ? Wbc 6.9 10*3/uL 5.0-10.0 F inal [place] Diff 10*3/uL [facility] L [facility] (Internal) : [address] ? ? BLD ? Rbc 5.63 10*6/uL 4.60-6.00 Final N orth 10*6/uL [facility] L [facility] (Internal) : [address] ? ? BLD ? Hgb 16.2 g/dL 14.0-18.0 Final Nort h g/dL [facility] L [facility] (Internal) : [address] ? ? BLD ? Hct 50.5 % 41.0-51.0 Final [facility] L [facility] (Internal) : [address] ? ? BLD ? Mcv 89.7 fL 80.0-96.0 Final [facility] L ab (Internal) : [address] , [place] [address] ? ? BLD ? Mch 28.8 pg 26.0-32.0 Final [facility] L ab (Internal) : [address] ? ? BLD ? Mchc 32.1 g/dL 31.0-35.0 Final Nort h g/dL [facility] L [facility] (Internal) : [address] ? ? BLD ? Rdw 13.7 % 11.5-14.[address] [facility] L ab (Internal) : [address] ? ? BLD ? Plt 247 10*3/uL 130-450 Final Nort h 10*3/uL [facility] L [facility] (Internal) : [address] ? ? BLD ? Anc 4.59 10*3/uL ? Final Nort h [facility] L [facility] (Internal) : [address] ? ? BLD ? Neutro 66.4 % 40.0-75.0 Final [facility] L [facility] (Internal) : [address] ? ? BLD Low Lymph 19.8 % 20.0-50.0 Final [facility] L [facility] (Internal) : [address] ? ? BLD ? [place] 9.5 % 2.0-10.[address] [facility] L ab (Internal) : [address] ? ? BLD ? Eos 3.3 % 1.0-6.0 % Final [facility] L ab (Internal) : [address] ? ? BLD ? Baso 0.7 % 0.0-1.0 % Final [facility] L [facility] (Internal) : [address], [place] ? ? BLD ? Ig 0.3 % 0.0-0.9 % Final [facility] (Internal) : [address] t 12/01/2017 CMP, Serum S High g/r 122 mg/dL 74-106 Final [place] or Plasma mg/dL [facility] (Internal) : [address] ? ? S ? Bun 15 mg/dL 9-20 Final [place] mg/dL [facility] (Internal) : [address] ? ? S ? Crea 1.00 mg/dL 0.66-1.25 Final [place] mg/dL [facility] (Internal) : [address] ? ? S ? Ca 9.7 mg/dL 8.4-10.2 Final [place] mg/dL [facility] (Internal) : [address] ? ? S ? Na 140 mmol/L 137-145 Final [place] mmol/L [facility] (Internal) : [address] ? ? S ? K 4.3 mmol/L 3.5-5.1 Final [place] mmol/L [facility] (Internal) : [address] ? ? S ? Cl 101 mmol/L 98-107 Final [place] mmol/L [facility] (Internal) : [address] ? ? S ? Tco2 28.0 mmol/L 22.0-30.0 Final No rth mmol/L [facility] (Internal) : [address] ? ? S ? Tp 7.6 g/dL 6.3-8.2 Final [place] g/dL [facility] (Internal) : [address] ? ? S ? Alb 4.2 g/dL 3.5-5.0 Final [place] g/dL [facility] (Internal) : [address] ? ? S ? Tbil 0.5 mg/dL 0.2-1.3 Final [place] mg/dL [facility] (Internal) : [address] ? ? S ? Alp 89 U/L 38-126 Final [place] U/L [facility] (Internal) : [address] ? ? S ? Alt 29 U/L 21-72 U/L Final [place] (Sgpt) [facility] L [facility] (Internal) : [address] [place] ? ? S ? Ast 31 U/L 17-59 U/L Final [place] (Sgot) [facility] L ab (Internal) : [address] 12/01/2017 TSH, Serum S High Tsh 5.38 u[IU]/mL 0.47-4.68 Final [place] or Plasma u[IU]/mL Count ry Hospital L ab (Internal) : [address] 12/01/2017 HbA1C BLD High Ha1C 6.5 % 4.0-6.0 % Final Nor th (Hemoglobin Count ry a1C), Blood Hospi jose Lab (Internal) : [address] 05/04/2017 Microalbumi UR High Malb 79.5 mg/L 5.0-16.7 Fin al [place] n, Urine mg/L [facility] L [facility] (Internal) : [address] [place] ? ? UR ? U-crea, 88 mg/dL 30-125 Final [place] Spot mg/dL [facility] L [facility] (Internal) : [address] maurizio ? ? UR High Microalb/ 90.0 ug/mg 0.0-30.0 Final [place] crea Ratio ug/mg Countr Hospital L ab (Internal) : [address] 05/04/2017 HbA1C BLD High Ha1C 6.8 % 4.0-6.0 % Final Nor th (Hemoglobin Count ry a1C), Blood Hospi jose Lab (Internal) : [address] [place] 05/04/2017 CBC W/ Auto BLD ? Wbc 7.0 10*3/uL 5.0-10.0 F inal [place] Diff 10*3/uL [facility] L [facility] (Internal) : [address] maurizio ? ? BLD ? Rbc 5.56 10*6/uL 4.60-6.00 Final N orth 10*6/uL [facility] L [facility] (Internal) : [address] maurizio ? ? BLD ? Hgb 16.1 g/dL 14.0-18.0 Final Nort h g/dL [facility] L [facility] (Internal) : [address] ? ? BLD ? Hct 49.1 % 41.0-51.0 Final [facility] L ab (Internal) : [address] ? ? BLD ? Mcv 88.3 fL 80.0-96.0 Final [facility] L ab (Internal) : [address] ? ? BLD ? Mch 29.0 pg 26.0-32.0 Final [facility] L ab (Internal) : [address] [place] ? ? BLD ? Mchc 32.8 g/dL 31.0-35.0 Final Nort h g/dL [facility] L ab (Internal) : [address] , [place] ? ? BLD ? Rdw 13.6 % 11.5-14.5 Final [facility] L ab (Internal) : [address] ? ? BLD ? Plt 229 10*3/uL 130-450 Final Nort h 10*3/uL [facility] L [facility] (Internal) : [address] ? ? BLD ? Anc 4.36 10*3/uL ? Final Nort h [facility] L ab (Internal) : [address] ? ? BLD ? Neutro 62.8 % 40.0-75.0 Final [facility] L ab (Internal) : [address] ? ? BLD ? Lymph 22.0 % 20.0-50.0 Final [facility] L ab (Internal) : [address] ? ? BLD ? [place] 9.6 % 2.0-10.0 Final [facility] L ab (Internal) : [address] ? ? BLD ? Eos 4.3 % 1.0-6.0 % Final [facility] L [facility] (Internal) : [address] [place] ? ? BLD ? Baso 0.9 % 0.0-1.0 % Final [facility] L ab (Internal) : [address] ? ? BLD ? Ig 0.4 % 0.0-0.9 % Final [facility] L [facility] (Internal) : [address] t 05/04/2017 BMP, Serum S High g/r 174 mg/dL 74-106 Final [place] or Plasma mg/dL [facility] (Internal) : [address] t ? ? S ? Bun 14 mg/dL 9-20 Final [place] mg/dL [facility] L [facility] (Internal) : [address] t ? ? S ? Crea 0.90 mg/dL 0.66-1.25 Final [place] [facility] mg/dL [facility] (Internal) : [address] ? ? S ? Ca 9.2 mg/dL 8.4-10.2 Final [place] mg/dL [facility] (Internal) : [address] t ? ? S ? Na 138 mmol/L 137-145 Final [place] mmol/L [facility] L [facility] (Internal) : [address] t ? ? S ? K 4.1 mmol/L 3.5-5.1 Final [place] mmol/L [facility] L [facility] (Internal) : [address] t ? ? S ? Cl 103 mmol/L 98-107 Final [place] mmol/L [facility] L [facility] (Internal) : [address] t ? ? S ? Tco2 27.0 mmol/L 22.0-30.0 Final No rth mmol/L [facility] L [facility] (Internal) : [address] t ? Venipunctur ? Location Right ? ? P_ nc Primary e Antecubital Care [place]: [address], [place] ? ? ? Needle 21g ? ? P_nc Prim richard Vacutainer Care [place]: [address], [place] ? ? ? Number of 1 ? ? P_nc P rimary Attempts Care [place]: [address], [place] ? ? ? Successfu Yes ? ? P_nc P rimary l Care [place]: [address], [place] ? ? ? Dressing Pressure ? ? P_nc Primary Band-aid Care Applied [place]: [address], [place] ? ? ? Initials HJ ? ? P_nc Pr imary Care [place]: [address], [place] ? Venipunctur ? Location Right ? ? P_ nc Primary e Antecubital Care [place]: [address], [place] ? ? ? Needle 21g ? ? P_nc Prim richard Vacutainer Care [place]: [address], [place] ? ? ? Number of 1 ? ? P_nc P rimary Attempts Care [place]: [address], [place] ? ? ? Successfu Yes ? ? P_nc P rimary l Care [place]: [address], [place] ? ? ? Dressing Pressure ? ? P_nc Primary Band-aid Care Applied [place]: [address], [place] ? ? ? Initials hj ? ? P_nc Pr imary Care [place]: [address], [place] ? Venipunctur ? Location Right ? ? P_ nc Primary e Antecubital Care [place]: [address], [place] ? ? ? Needle 21g ? ? P_nc Prim richard Vacutainer Care [place]: [address], [place] ? ? ? Number of 1 ? ? P_nc P rimary Attempts Care [place]: [address], [place] ? ? ? Successfu Yes ? ? P_nc P rimary l Care [place]: [address], [place] ? ? ? Dressing Pressure ? ? P_nc Primary Band-aid Care Applied [place]: [address], [place] ? ? ? Initials LMK ? ? P_nc Pr imary Care [place]: [address], [place] Past Encounters 12/22/2021 Oliver King MD: [address] [place] [address], Ph. 12/08/2021 Oliver King MD: [address] [place] [address], Ph. 11/24/2021 Oliver King MD: [address] [place] [address], Ph. 11/06/2021 Oliver King MD: [address] [place] [address], Ph. 10/23/2021 Oliver King MD: [address] [place] [address], Ph. 08/15/2021 Adult Health Examination; Osteoarthritis ; Hypertensive Disorder; Type 2 Diabetes Mellitus without Complication; Administration of Influenza Vaccine Angela Chavez MD: [address] [place] [id number], Ph. 07/28/2021 Ventricular Premature Beats; Sleep Apnea ; Dyspnea; Hypertensive Disorder Oliver King MD: [address] [place] [address], Ph. 01/29/2021 Hyperlipidemia; Hypertensive Disorder Oliver King MD: [address] [place] [address], Ph. Social History Tobacco Smoking Status Never Smoker Vaccine List Vaccine Type pneumococcal polysaccharide PPV23 03/08/2013?0.5 mL Plan of Care Reminders Provider Appointments None recorded. ? ? Lab None recorded. ? ? Referral None recorded. ? ? Procedures None recorded. ? ? Surgeries None recorded. ? ? Imaging None recorded. ? ? Vitals 11/06/2021 11:45AM Office 15 Height Blood Pressure 173.99 cm 160/70 mm[Hg] 10/23/2021 11:30AM Follow Up 30 Height Weight BMI Blood Pressure 173.99 cm 74.9 kg 24.7 kg/m2 (1) 163/84 mm[H g] (2) 175/77 mm[Hg ] 08/15/2021 09:00AM AWV 20 Height Weight BMI Blood Pressure 173.99 cm 78.02 kg 25.8 kg/m2 126/74 mm[Hg] 07/28/2021 09:45AM Follow Up 30 Height Weight BMI Blood Pressure 173.99 cm 76.5 kg 25.3 kg/m2 140/72 mm[Hg] 01/29/2021 02:15PM Follow Up 30 Height Weight BMI Blood Pressure 173.99 cm 78.5 kg 25.9 kg/m2 181/84 mm[Hg] 08/09/2020 10:00AM CPE 20 Height Weight BMI Blood Pressure 173.99 cm 78.53 kg 25.9 kg/m2 140/84 mm[Hg] 07/23/2020 01:00PM Acute 20 Height Weight BMI Blood Pressure 173.99 cm 79.83 kg 26.4 kg/m2 146/94 mm[Hg] 12/21/2019 10:30AM Consult 60 Height Weight BMI Blood Pressure 173.99 cm 80.1 kg 26.5 kg/m2 (1) 173/88 mm[H g] (2) 160/81 mm[Hg ] 11/07/2019 09:20AM Follow Up 20 Height Weight BMI Blood Pressure 173.99 cm 80.29 kg 26.5 kg/m2 152/82 mm[Hg] 10/27/2019 03:40PM Same Day 20 Height Weight BMI Blood Pressure 173.99 cm 80.29 kg 26.5 kg/m2 (1) 152/88 mm[H g] (2) 169/94 mm[Hg ] 07/25/2019 08:20AM Follow Up 40 Height Weight BMI Blood Pressure 173.99 cm 80 kg 26.4 kg/m2 116/62 mm[Hg] 07/25/2018 09:00AM Follow Up 20 Height Weight BMI Blood Pressure 173.99 cm 80.97 kg 26.7 kg/m2 158/62 mm[Hg] 12/24/2017 Weight Blood Pressure 81.19 kg 168/86 mm[Hg] 05/31/2017 Weight Blood Pressure 81.65 kg 130/76 mm[Hg] 10/21/2016 Height Weight Blood Pressure 168.91 cm 82.1 kg 138/86 mm[Hg] 05/13/2016 Height Weight Blood Pressure 172.09 cm 83.01 kg (1) 168/100 mm[Hg] (2) 190/100 mm[Hg] 10/28/2015 Height Weight Blood Pressure 172.09 cm 84.82 kg 140/76 mm[Hg] 04/26/2015 Height Weight Blood Pressure 172.09 cm 85.28 kg 140/72 mm[Hg] 02/25/2015 Height Weight Blood Pressure 172.09 cm 84.82 kg 148/88 mm[Hg] 04/04/2014 Height Weight Blood Pressure 172.09 cm 83.69 kg 152/80 mm[Hg] 09/11/2013 Weight Blood Pressure 85.28 kg 146/84 mm[Hg] 05/18/2013 Height Weight Blood Pressure 172.09 cm 84.82 kg 144/82 mm[Hg] 03/08/2013 Height Weight Blood Pressure 173.36 cm 85.5 kg 150/84 mm[Hg] 09/08/2012 Height Weight Blood Pressure 173.36 cm 85.28 kg 152/90 mm[Hg] 06/28/2012 Height Weight Blood Pressure 173.36 cm 86.18 kg 154/84 mm[Hg] 04/14/2012 Height Weight Blood Pressure 148.59 cm 87.54 kg 146/88 mm[Hg] 03/08/2012 Weight Blood Pressure 88 kg 156/88 mm[Hg] 02/10/2012 Height Weight Blood Pressure 172.72 cm 88.45 kg 130/70 mm[Hg] 09/08/2011 Height Weight Blood Pressure 149.86 cm 87.54 kg 130/70 mm[Hg] 06/08/2011 Height Weight Blood Pressure 172.72 cm 87.09 kg 126/80 mm[Hg] 05/25/2011 Height Weight Blood Pressure 172.72 cm 87.09 kg 128/78 mm[Hg] 05/06/2011 Weight Blood Pressure 87.09 kg 126/66 mm[Hg] 02/18/2011 Height Weight Blood Pressure 172.72 cm 86.64 kg 128/78 mm[Hg] 09/02/2010 Weight Blood Pressure 88.45 kg 156/96 mm[Hg] 06/02/2010 Weight Blood Pressure 86.18 kg 148/88 mm[Hg] 02/28/2010 Weight Blood Pressure 86.64 kg 140/86 mm[Hg] 01/06/2010 Blood Pressure 158/84 mm[Hg]
--- OUTSIDE RECORDS SUMMARY | 2022-04-06 11:50 | XMS_ITS | Encounter Summary ---
:1940 Author Organization [facility] [place] [address] Care Team Providers Name Role Phone Ahmet Aguilar MD Primary Care Provider Encounter Details Date Type Department Care Team Description 08/11/2011 Office Visit [facility] Kev Negron CAD (coronary artery [address] T, disease) (Primary Dx) [facility] [id number] CARDIOLOGY DEPT. [place], [place] [address] Social History Tobacco Use Types [...] this encounter Progress Notes Teofilo Wiseman - 08/23/2011 1:34 PM EST Kev Negron - 08/11/2011 1:56 PM EDT Subjective: Patient ID: Ken Gomes is a 71 y.o. male. HPI ROS Objective: Physical Exam Assessment and Plan: No problem-specific visit notes found for this encounter. scanned note documented in this encounter Procedure Notes Provider, Scanning - 08/19/2011 2:51 PM ESTAssociated Order(s): SCAN DOC: LAB documented in this encounter Plan of Treatment Not on filedocumented as of this encounter Procedures Procedure Name Priority Date/Time Associated Diagnosis Comme nts LAB SCAN 08/19/2011 2:51 PM Results f or this EST procedure are i n the results section . documented in this encounter Results SCAN DOC: LAB (08/19/2011 2:51 PM EST) Narrative 08/19/2011 2:51 PM EST Procedure Note Provider, Scanning - 08/19/2011 2:51 PM EST Scanning Provider MEDIA MGR SCAN EXT ORDR/RSLT documented in this encounter Visit Diagnoses Diagnosis CAD (coronary artery disease) - Primary Coronary atherosclerosis of unspecified type of vessel, [place] or graft documented in this encounter Care Teams Zinc Skimmer Relationship Specialty Start Date End Date Ahmet Aguilar MD PCP - General 09/02/[address] [place] [phone] documented as of this encounter
--- OUTSIDE RECORDS SUMMARY | 2022-04-06 11:51 | XMS_ITS | Encounter Summary ---
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 [phone] [place], [place] [address] (Wo rk) Social History Tobacco Use Types Packs/Day Years [...] on file documented as of this encounter Last Filed Vital Signs Vital Sign Reading [...] Mass Index 29.03 02/08/2011 7:38 PM EDT documented in this encounter Discharge Instructions Patient InstructionsBonita Valdez APRN - 02/10/2011 10:54 AM EDT Anti-coagulation follow up: N/A Call your doctor if: Chest pain, dyspnea, pain or swelling in legs occurs. If you have non-emergent questions between now and the time of your follow up appointments: During 8am-5pm Wednesday through Wednesday call [phone] to speak with a nurse in the cardiology clinic All other times call [phone] and ask to speak to the production worker counselor nurses' association. Return to work: One week Driving: No driving for 48 hours after catheterization. Follow up Appointments: PCP Dr. Chavez Friday February 18, 2011 at 10:30am in [facility] [employer] [address] Negron in [facility] You will get a letter about this appointment in the mail Home oxygen therapy: N/A Arrangements for VNA/home care: none AttachmentsThe following attachments cannot be sent through Care Everywhere. REDUCING HEART ATTACK RISK WITH DAILY MEDICINE: AFTER YOUR VISIT (MAORI) documented in this encounter Medications at Time of Discharge Medication Sig Dispensed Refills Start Date End Date amlodipine (NORVASC) 5 mg Take 5 mg by mouth 0 tablet daily. lisinopril Take 20 mg by mouth 0 (PRINIVIL;ZESTRIL) 20 mg daily. tablet triamcinolone (KENALOG) Apply topically 2 0 02/08 0.1 % cream times daily as needed. aspirin 325 mg tablet Take 1 tablet by 30 tablet 0 02/11/20 11 02/10/2012 mouth daily. clopidogrel (PLAVIX) 75 Take 1 tablet by 30 tablet 3 201002/10/2012 mg tablet mouth daily. nitroGLYcerin (NITROSTAT) Place 1 tablet under 90 tablet 12 02/10/2011 02/10/2012 0.4 mg SL tablet the tongue every 5 minutes as needed for Chest pain. simvastatin (ZOCOR) 80 mg Take 1 tablet by 30 tablet 2 12/201002/10/2012 tablet mouth nightly. metoprolol succinate Take 1 tablet by 30 tablet 2 1 02/10/2012 (TOPROL-XL) 50 mg 24 hr mouth daily. tablet documented as of this encounter Progress Notes Hardeep Newberry - 02/10/2011 3:14 PM EDT Clinical Nutrition Note Name: Ken Gomes Age: 71 y.o. Sex; Male Date of : 1940 Date: 02/10/2011 Nutrition Services Education Note Primary Cardiac Diagnosis: NSTEMI, PCI Reason for Nutrition Intervention: Consult Diet Order: [facility] Appetite: good Food allergies: none Chewing/Swallowing difficulty: none Height: (cm) 172.7 Weight: (kg) 86.6 02/10/11 Wt hx: (kg) 86.8 02/08/11 BMI: 29.2 Vitamins/Minerals: none Education: [facility] dietary guidelines. Verbalized good understanding. Education material, with means of contact provided. Assessment: I met with patient and . Patient states that they try to eat a heart healthy diet but they can do better. They use very little processed foods and make most of their own foods from scratch. Patient does not drink milk, so would recommend calcium supplementation. Patient is willing to eat more chicken and fish instead of red meat and to incorporate more fruits/vegetables and whole grains into his diet. Patient states that he does like his icecream but would be willing to try fat free frozen yogurt as a replacement. Patient states that he is being discharged today. Nutrition Plan: Diet:[facility] Recommend Daily Multi Vitamins and calcium supplement. Encourage good po intake. Monitor weight. Support and encouragement provided. Nutrition services to follow weekly thru hospital course unless consulted in the interim. 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 He walks daily, sometimes w/his . Given parameters for home exercise. Lipids values and treatment goals reviewed. Phase II Referral: He is not interested in cardiac rehab. I gave him the brochure for [facility] should he change his mind. Activity Summary: By discharge, patient will be able to perform self care, walk 5-7 minutes and go up and down stairs without signs or symptoms of ischemia. 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 Jacome Reason for continued hospitalization: Evaluation and management of NSTEMI Active Problems: Active Hospital Problems Diagnoses ??? NSTEMI (non-ST elevated myocardial infarction) ??? Hyperlipidemia Resolved Hospital Problems Diagnoses Date Resolved ??? Chest pain 02/10/2011 Interval History: Patient has felt well since cardiac cath. No further chest discomfort or pain in his left arm. He is feeling well and hopeful for discharge today. Review of Systems: Review of Systems Respiratory: Negative for shortness of breath. Cardiovascular: Negative for chest pain and palpitations. Musculoskeletal: Right groin feels well. All other systems reviewed and are negative. Telemetry: HR: 58-89 sinus bradycardia, sinus rhythm with rare PVCs Meds: Current facility-administered medications ordered in [facility] Medication Dose Route Frequency Provider Last Rate Last Dose ??? clopidogrel (PLAVIX) tablet 75 mg 75 mg Oral Daily Scott Wise MD Last Dose: 75 mg at 02/10/11 0900 ??? nitroGLYcerin (NITROSTAT) SL tablet 0.4 mg 0.4 mg Sublingual Q5 Min PRN Scott Wise MD ??? diaZEPam (VALIUM) tablet 5 mg 5 mg Oral Once MERA Abreu Last Dose: 5 mg at 02/09/11 1350 ??? diphenhydrAMINE (BENDARYL) tablet 25 mg 25 mg Oral Once MERA Abreu Last Dose: 25 mg at02/09/11 1350 ??? perflutren lipid microspheres (DEFINITY) injection 0.8 mL 0.8 mL Intravenous ONCE PRN Serge Pizarro MD Last Dose: 0.8 mL at 02/09/11 1215 ??? bivalirudin (ANGIOMAX) injection Once PRN Serge Jhaveri MD Last Dose: 64.5 mg at 02/09/11 1522 ??? bivalirudin (ANGIOMAX) injection Once PRN Serge Jhaveri MD ??? niCARdipine (CARDENE) in sodium chloride 0.9% injection Once PRN Serge Jhaveri MD Last Dose:500 mcg at 02/09/11 1559 ??? niCARdipine (CARDENE) in sodium chloride 0.9% injection Once PRN Serge Jhaveri MD Last Dose:200 mcg at 02/09/11 1600 ??? niCARdipine (CARDENE) in sodium chloride 0.9% injection Once PRN Serge Jhaveri MD Last Dose:100 mcg at 02/09/11 1601 ??? sodium chloride 0.9% infusion 100 mL/hr Intravenous Continuous Scott Wise MD 100 mL/hr (02/09/11 1630) Last Dose: 100 mL/hr at 02/09/11 1630 ??? DISCONTD: sodium chloride 0.9% infusion 100 mL/hr Intravenous Continuous MERA Abreu 100 mL/hr (02/09/11 0915) Last Dose: 100 mL/hr at 02/09/11 0915 ??? DISCONTD: bivalirudin (ANGIOMAX) 250 mg in sodium chloride 0.9% 50 mL infusion (TISSUE PACKER) Continuous PRN Serge Jhaveri MD 29.9 mL/hr (02/09/11 1525) Last Dose: 1.75 mg/kg/hr at 02/09/11 1525 ??? amlodipine (NORVASC) tablet 5 mg 5 mg Oral Daily Malcolm López MD Last Dose: 5 mg at ??? lisinopril (PRINIVIL;ZESTRIL) tablet 20 mg 20 mg Oral Daily Malcolm López MD Last Dose: 20 mgat 02/10/11 0900 ??? triamcinolone (KENALOG) 0.1 % cream Topical BID PRN Malcolm López MD ??? nitroGLYcerin (NITROSTAT) SL tablet 0.4 mg 0.4 mg Sublingual Q5 Min PRN Malcolm López MD ??? famotidine (PEPCID) tablet 20 mg 20 mg Oral BID Malcolm López MD Last Dose: 20 mg at ??? aspirin tablet 325 mg 325 mg Oral Daily Malcolm López MD Last Dose: 325 mg at 02/10/11 0900 ??? metoprolol tartrate (LOPRESSOR) tablet 12.5 mg 12.5 mg Oral Q6H CAREN Malcolm López MD Last Dose: 12.5 mg at 02/10/11 0600 ??? atorvastatin (LIPITOR) tablet 40 mg 40 mg Oral Daily with dinner Malcolm López MD Last Dose: 40 mg at 02/09/11 1847 ??? dextrose 50% solution 50 mL 50 mL Intravenous Per Insulin Protocol Malcolm López MD ??? glucagon (human recombinant) injection 1 mg 1 mg Intramuscular Per Insulin Protocol Malcolm López MD ? ? insulin aspart (novoLOG) PEN injection 2-8 Units 2-8 Units Subcutaneous 4 Times Daily AC & HS Malcolm López MD Last Dose: 6 Units at 02/09/11 2100 ??? DISCONTD: heparin (porcine) injection 2,000-4,000 Units 2,000-4,000 Units Intravenous BOLUS HEPARIN PP Malcolm López MD ??? DISCONTD: heparin 61612 units in dextrose 5% 500 mL infusion 350-7,000 Units/hr Intravenous Continuous Malcolm López MD Last Dose: 1150 Units/hr at 02/09/11 0315 No current Epic-ordered outpatient prescriptions on file. Physical Exam: Vital Signs: Last value Range last 12 hrs Temperature Temp: 36.8 ??C (98.2 ??F) Temp: [36.8 ??C (98.2 ??F)] Heart Rate Heart Rate: 58 Heart Rate: [58-99] Blood Pressure BP: 145/80 mmHg BP: (119-145)/(73-80) Respiratory Rate Resp: 20 Resp: [20] SpO2 SpO2: 96 % SpO2: [94 %-96 %] Physical Exam Constitutional: He is oriented to person, place, and time. He appears well- developed and well-nourished. No distress. HENT: Head: Normocephalic and atraumatic. Neck: Normal range of motion. Neck supple. No JVD present. Cardiovascular: Normal rate, regular rhythm and intact distal pulses. Exam reveals no gallop and no friction rub. No murmur heard. Pulmonary/Chest: Effort normal and breath sounds normal. Abdominal: Soft. Bowel sounds are normal. Musculoskeletal: He exhibits no edema. Right groin no hematoma, no ooze. Lymphadenopathy: He has no cervical adenopathy. Neurological: He is alert and oriented to person, place, and time. Skin: Skin is warm and dry. No rash noted. He is not diaphoretic. No erythema. Psychiatric: He has a normal mood and affect. His behavior is normal. Lab Comments: Results for orders placed during the hospital encounter of 02/08/11 (from the past 24 hour(s)) APTT Component Value Range ??? PTT 114 (*) 25 - 37 (sec) CARDIAC ENZYMES Component Value Range ? ? Troponin-T 0.89 (*) <=0.03 (ng/mL) ??? CK, Total 309 (*) 0 - 200 (unit/L) POCT GLUCOSE LAB USE ONLY Component Value Range ??? POC Glucose 113 60 - 199 (mg/dL) POCT GLUCOSE LAB USE ONLY Component Value Range ??? POC Glucose 109 60 - 199 (mg/dL) POCT GLUCOSE LAB USE ONLY Component Value Range ??? POC Glucose 222 (*) 60 - 199 (mg/dL) POCT GLUCOSE LAB USE ONLY Component Value Range ??? POC Glucose 188 60 - 199 (mg/dL) BMP W/FASTING GLUCOSE Component Value Range ??? Glucose Fasting 171 (*) 65 - 99 (mg/dL) ??? BUN 13 10 - 20 (mg/dL) ??? Creatinine 1.15 0.80 - 1.50 (mg/dL) ??? Sodium 138 135 - 145 (mmol/L) ??? Potassium 3.8 3.5 - 5.0 (mmol/L) ??? Chloride 105 98 - 107 (mmol/L) ??? CO2 23 22 - 31 (mmol/L) ??? Anion Gap 10 5 - 15 (mmol/L) ??? Calcium 9.2 8.5 - 10.5 (mg/dL) ? ? Estimated GFR >60 >=60 CBC (WITH DIFF) Component Value Range ??? WBC 9.9 4.0 - 10.0 (x10(3)/mcL) ??? RBC 5.27 4.63 - 6.08 (x10(6)/mcL) ??? Hemoglobin 15.5 13.7 - 17.5 (gm/dL) ??? Hematocrit 46.1 40.0 - 51.0 (%) ??? MCV 87.5 79.0 - 92.0 (fL) ??? MCH 29.4 25.6 - 32.2 (pg) ??? MCHC 33.6 32.0 - 36.5 (gm/dL) ??? Platelets 209 145 - 370 (x10(3)/mcL) ??? RDWSD 45.9 35.0 - 46.0 (fL) ??? RDWCV 14.5 (*) 10.9 - 14.4 (%) ??? MPV 10.2 9.0 - 12.0 (fL) CARDIAC ENZYMES Component Value Range ? ? Troponin-T 0.98 (*) <=0.03 (ng/mL) ??? CK, Total 199 0 - 200 (unit/L) HEPATIC FUNCTION PANEL Component Value Range ??? Total Protein 6.9 6.4 - 8.3 (gm/dL) ??? Albumin 3.7 3.2 - 5.2 (gm/dL) ??? AST 36 0 - 39 (unit/L) ??? ALT 18 0 - 55 (unit/L) ??? Alk Phos 69 40 - 120 (unit/L) ??? Total Bilirubin 0.5 0.2 - 1.3 (mg/dL) ??? Bili, Direct 0.1 0.0 - 0.3 (mg/dL) REFLEX LAB-A-DIFF Component Value Range ??? Neutrophils % 73.2 (*) 34.0 - 71.0 (%) ??? Neutr Abs (ANC) 7.24 (*) 1.50 - 6.30 (x10(3)/mcL) ??? Lymphocytes % 14.8 (*) 19.0 - 53.0 (%) ??? Lymphocytes Abs 1.5 1.0 - 3.6 (x10(3)/mcL) ??? Monocytes % 10.6 4.0 - 13.0 (%) ??? Monocyte Abs 1.1 (*) 0.2 - 1.0 (x10(3)/mcL) ??? Eosinophils % 1.0 0.0 - 7.0 (%) ??? Eosinophils Abs 0.1 0.0 - 0.5 (x10(3)/mcL) ??? Basophils % 0.2 0.0 - 2.0 (%) ??? Basophils Abs 0.0 0.0 - 0.2 (x10(3)/mcL) ??? Immature Gran % 0.20 0.00 - 0.66 (%) ??? Aide Gran Abs 0.02 0.00 - 0.05 (x10(3)/mcL) Pertinent Radiographic/Diagnostic Results: I have independently visualized the following studies: EC sinus bradycardia with no acute change Cardiac cath: Left main with mild diffuse disease, RCA with mild diffuse disease and proximal 50% stenosis, Circumflex with mild diffuse disease, 98% mid stenosis, decreased distal flow, distal flow from collaterals from LAD, LAD with mild diffuse disease, proximal long 50% stenosis, 65% ostial D2 stenosis Discharge Medication Checklist: Aspirin Yes Clopidogrel/prasugrel Yes Wayne inhibitor/or ARB Yes Beta Nelly Yes Lipid Lowering Yes Nitroglycerin Yes Assessment: Ken Gomes is a 71 y.o. male who ruled in for NSTEMI. 98% stenosis present in mid Circumflex which was stented with bare metal stent. Plavix for 1-3 months, preferably one year along with aspirin, statin, WAYNE inhibitor, beta nelly, prn nitro. Plan: Anticipate discharge today NSTEMI Continue aspirin, statin, beta nelly, WAYNE inhibitor, prn nitroglycerin Stress test in [address] 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 Jacome Reason for continued hospitalization: Awaiting cardiac catherization heparing gtt Active Problems: No resolved problems to display. Active Hospital Problems Diagnoses ??? Chest pain ??? Hyperlipidemia Resolved Hospital Problems Diagnoses Date Resolved Interval History: Patient had pain on Wednesday night that was a squeezing pain after he went for a walk. THe pain went down his left arm. He only takes an ASA a day at home. He has ruled in for a NSTEMI. He is signed up for cath. No chest pain or SOB at this time. He received 600 of Plavix. Review of Systems: ROS No new issues Telemetry: HR: 66 sinus rhythm Meds: Current facility-administered medications ordered in [facility] Medication Dose Route Frequency Provider Last Rate Last Dose ??? sodium chloride 0.9% infusion 100 mL/hr Intravenous Continuous MERA Abreu ??? heparin (porcine) 25,000 unit/500 mL infusion 23 mL/hr (02/08/112141) Last Dose: 1150 Units/hr at 02/08/112141 ??? amlodipine (NORVASC) tablet 5 mg 5 mg Oral Daily Malcolm López MD Last Dose: 5 mg at 829 ??? lisinopril (PRINIVIL;ZESTRIL) tablet 20 mg 20 mg Oral Daily Malcolm López MD Last Dose: 20 mgat 02/09/11 0830 ??? triamcinolone (KENALOG) 0.1 % cream Topical BID PRN Malcolm López MD ??? sodium chloride 0.9% infusion 80 mL/hr Intravenous Continuous Malcolm López MD 80 mL/hr (02/09/1117) Last Dose: 80 mL/hr at 02/09/1117 ??? nitroGLYcerin (NITROSTAT) SL tablet 0.4 mg 0.4 mg Sublingual Q5 Min PRN Malcolm López MD ??? famotidine (PEPCID) tablet 20 mg 20 mg Oral BID Malcolm López MD Last Dose: 20 mg at ??? heparin (porcine) injection 2,000-4,000 Units 2,000-4,000 Units Intravenous BOLUS HEPARIN PP Malcolm López MD ??? heparin 20311 units in dextrose 5% 500 mL infusion 350-7,000 Units/hr Intravenous Continuous Malcolm López MD 23 mL/hr (02/09/11314) Last Dose: 1150 Units/hr at 02/09/11314 ??? aspirin tablet 325 mg 325 mg Oral Daily Malcolm López MD Last Dose: 325 mg at 02/08/112133 ??? clopidogrel (PLAVIX) tablet 300 mg 300 mg Oral Once Malcolm López MD Last Dose: 300 mg at 02/08/112133 ??? metoprolol tartrate (LOPRESSOR) tablet 12.5 mg 12.5 mg Oral Q6H CAREN Malcolm López MD Last Dose: 12.5 mg at 02/09/11 06 ??? atorvastatin (LIPITOR) tablet 40 mg 40 mg Oral Daily with dinner Malcolm López MD ??? dextrose 50% solution 50 mL 50 mL Intravenous Per Insulin Protocol Malcolm López MD ??? glucagon (human recombinant) injection 1 mg 1 mg Intramuscular Per Insulin Protocol Malcolm López MD ? ? insulin aspart (novoLOG) PEN injection 2-8 Units 2-8 Units Subcutaneous 4 Times Daily AC & HS Malcolm López MD Last Dose: 2 Units at 02/09/11 0829 No current Epic-ordered outpatient prescriptions on file. Physical Exam: Vital Signs: Last value Range last 24 hrs Temperature Temp: 37.2 ??C (99 ??F) Temp: [36.8 ??C (98.2 ??F)-37.2 ??C (99 ??F)] Heart Rate Heart Rate: 66 Heart Rate: [66-88] Blood Pressure BP: 153/81 mmHg BP: (137-159)/(81-101) Respiratory Rate Resp: 18 Resp: [18] SpO2 SpO2: 96 % SpO2: [96 %-98 %] Physical Exam NAD NCAT, EOMI, no icterus RRR, no m/r/g CTA bilaterall Obese abdomen, active BS, soft, NT Ext show dry skin of both shins (psoriasis) Strength intact in upper and lower extremity Lab Comments: Results for orders placed during the hospital encounter of 02/08/11 (from the past 24 hour(s)) POCT GLUCOSE LAB USE ONLY Component Value Range ??? POC Glucose 196 60 - 199 (mg/dL) CBC (WITH DIFF) Component Value Range ??? WBC 10.2 (*) 4.0 - 10.0 (x10(3)/mcL) ??? RBC 5.48 4.63 - 6.08 (x10(6)/mcL) ??? Hemoglobin 16.3 13.7 - 17.5 (gm/dL) ??? Hematocrit 47.4 40.0 - 51.0 (%) ??? MCV 86.5 79.0 - 92.0 (fL) ??? MCH 29.7 25.6 - 32.2 (pg) ??? MCHC 34.4 32.0 - 36.5 (gm/dL) ??? Platelets 207 145 - 370 (x10(3)/mcL) ??? RDWSD 43.7 35.0 - 46.0 (fL) ??? RDWCV 14.0 10.9 - 14.4 (%) ??? MPV 9.7 9.0 - 12.0 (fL) BASIC METABOLIC PANEL (NON-FASTING) Component Value Range ??? Glucose Lvl 162 60 - 199 (mg/dL) ??? BUN 13 10 - 20 (mg/dL) ??? Creatinine 1.00 0.80 - 1.50 (mg/dL) ??? Sodium 138 135 - 145 (mmol/L) ??? Potassium 4.0 3.5 - 5.0 (mmol/L) ??? Chloride 103 98 - 107 (mmol/L) ??? CO2 27 22 - 31 (mmol/L) ??? Anion Gap 8 5 - 15 (mmol/L) ??? Calcium 9.2 8.5 - 10.5 (mg/dL) ? ? Estimated GFR >60 >=60 CALCIUM Component Value Range ??? Calcium 9.2 8.5 - 10.5 (mg/dL) MAGNESIUM Component Value Range ??? Magnesium 0.84 0.69 - 1.07 (mmol/L) PHOSPHORUS Component Value Range ??? Phosphorus 3.6 2.5 - 4.5 (mg/dL) TSH Component Value Range ??? TSH 2.43 0.27 - 4.20 (mcIU/mL) PRO-BRAIN NATRIURETIC PEPTIDE Component Value Range ? ? ProBNP 668 (*) <=125 (pg/mL) HEPATIC FUNCTION PANEL Component Value Range ??? Total Protein 7.4 6.4 - 8.3 (gm/dL) ??? Albumin 4.2 3.2 - 5.2 (gm/dL) ??? AST 86 (*) 0 - 39 (unit/L) ??? ALT 30 0 - 55 (unit/L) ??? Alk Phos 80 40 - 120 (unit/L) ??? Total Bilirubin 0.5 0.2 - 1.3 (mg/dL) ??? Bili, Direct 0.1 0.0 - 0.3 (mg/dL) PROTHROMBIN TIME Component Value Range ??? PT 14.2 12.3 - 14.7 (sec) ??? INR 1.1 0.9 - 1.1 APTT Component Value Range ??? PTT 67 (*) 25 - 37 (sec) CARDIAC ENZYMES Component Value Range ? ? Troponin-T 0.79 (*) <=0.03 (ng/mL) ??? CK, Total 537 (*) 0 - 200 (unit/L) REFLEX LAB-A-DIFF Component Value Range ??? Neutrophils % 78.0 (*) 34.0 - 71.0 (%) ??? Neutr Abs (ANC) 7.98 (*) 1.50 - 6.30 (x10(3)/mcL) ??? Lymphocytes % 12.7 (*) 19.0 - 53.0 (%) ??? Lymphocytes Abs 1.3 1.0 - 3.6 (x10(3)/mcL) ??? Monocytes % 8.4 4.0 - 13.0 (%) ??? Monocyte Abs 0.9 0.2 - 1.0 (x10(3)/mcL) ??? Eosinophils % 0.4 0.0 - 7.0 (%) ??? Eosinophils Abs 0.0 0.0 - 0.5 (x10(3)/mcL) ??? Basophils % 0.2 0.0 - 2.0 (%) ??? Basophils Abs 0.0 0.0 - 0.2 (x10(3)/mcL) ??? Immature Gran % 0.30 0.00 - 0.66 (%) ??? Aide Gran Abs 0.03 0.00 - 0.05 (x10(3)/mcL) CBC (WITH DIFF) Component Value Range ??? WBC 9.0 4.0 - 10.0 (x10(3)/mcL) ??? RBC 5.14 4.63 - 6.08 (x10(6)/mcL) ??? Hemoglobin 15.2 13.7 - 17.5 (gm/dL) ??? Hematocrit 44.2 40.0 - 51.0 (%) ??? MCV 86.0 79.0 - 92.0 (fL) ??? MCH 29.6 25.6 - 32.2 (pg) ??? MCHC 34.4 32.0 - 36.5 (gm/dL) ??? Platelets 197 145 - 370 (x10(3)/mcL) ??? RDWSD 43.6 35.0 - 46.0 (fL) ??? RDWCV 14.0 10.9 - 14.4 (%) ??? MPV 9.8 9.0 - 12.0 (fL) LIPID PANEL (FASTING) Component Value Range ? ? Chol, Total 184 <=199 (mg/dL) ? ? Triglycerides 70 <=149 (mg/dL) ? ? HDL 51 >=40 (mg/dL) ? ? LDL Cholesterol 119 (*) <=99 (mg/dL) ??? Chol/HDL Ratio 3.6 (ratio) HEMOGLOBIN A1C Component Value Range ??? Hemoglobin A1C 6.6 (*) 4.3 - 6.1 (%) ??? Est Avg Gluc See note (mg/dL) LDL CHOLESTEROL, DIRECT Component Value Range ? ? LDL Chol Direct 120 (*) <=99 (mg/dL) GLUCOSE, FASTING Component Value Range ??? Glucose Fasting 122 (*) 65 - 99 (mg/dL) APTT Component Value Range ??? PTT 93 (*) 25 - 37 (sec) REFLEX LAB-A-DIFF Component Value Range ??? Neutrophils % 72.9 (*) 34.0 - 71.0 (%) ??? Neutr Abs (ANC) 6.52 (*) 1.50 - 6.30 (x10(3)/mcL) ??? Lymphocytes % 16.5 (*) 19.0 - 53.0 (%) ??? Lymphocytes Abs 1.5 1.0 - 3.6 (x10(3)/mcL) ??? Monocytes % 9.2 4.0 - 13.0 (%) ??? Monocyte Abs 0.8 0.2 - 1.0 (x10(3)/mcL) ??? Eosinophils % 0.9 0.0 - 7.0 (%) ??? Eosinophils Abs 0.1 0.0 - 0.5 (x10(3)/mcL) ??? Basophils % 0.1 0.0 - 2.0 (%) ??? Basophils Abs 0.0 0.0 - 0.2 (x10(3)/mcL) ??? Immature Gran % 0.40 0.00 - 0.66 (%) ??? Aide Gran Abs 0.04 0.00 - 0.05 (x10(3)/mcL) CARDIAC ENZYMES Component Value Range ? ? Troponin-T 0.92 (*) <=0.03 (ng/mL) ??? CK, Total 357 (*) 0 - 200 (unit/L) POCT GLUCOSE LAB USE ONLY Component Value Range ??? POC Glucose 150 60 - 199 (mg/dL) Pertinent Radiographic/Diagnostic Results: ECHO: CXR: Cardiac Catheterization: Assessment: Ken Gomes is a 71 y.o. male with NSTEMI. Hx of HTN, Dyslipidemia, and Psoriasis. Had lisinopril and metoprolol in the past but stopped taking medications. He is only on one baby asa per day at home. He is now NPO for cardiac catheterization. Stable on heparin gtt. Plan: 1. NSTEMI Continue telemetry monitoring Continue heparin gtt, lisinopril 20 mg PO daily, Metoprolol 12.5 mg PO Q 6 Continue asa 325 mg PO daily, atorvastatin 40 Mg PO daily, and NTG prn Echocardiogram ordered CXR ordered Cardiac cath ordered Consent for cath obtained as the risks and benefits were explained Patient has 2 IVs NPO for cardiac catheterization 2. HTN Continue lisinopril, metoprolol, and amlodipine Monitor trends 3. Dyslipidemia Started on atorvastatin 40 mg PO daily LDL is 119 this admission Goal LDL is less than 70 LFTs were ok 4. Psoriasis Continue cream as before Follow 5. HBAIC is 6.6 6. TSH is 2.43 7. Full Code Patient discussed with Dr. Jacome. Adriana Gee PA Pager [phone] Cardiology Staff Addendum Patient Name: Ken Gomes Patient Admit Date: 02/08/2011 The patient was interviewed, examined and discussed in detail with Ms. Gee. Have reviewed Ms. Gee's note dated February 09, 2011 and agree with evaluation and plans. Patient Active Problem List Diagnoses Code ??? Chest pain 786.50F ??? Hyperlipidemia 272.4S Filed Vitals: 02/09/11 1134 BP: 139/83 Pulse: 68 Temp: 35.9 ??C (96.6 ??F) Resp: 18 Labs Lab Results Component Value Date WBC 9.0 02/09/2011 HGB 15.2 02/09/2011 HCT 44.2 02/09/2011 MCV 86.0 02/09/2011 Lab Results Component Value Date Sodium 138 02/08/2011 Potassium 4.0 02/08/2011 Chloride 103 02/08/2011 CO2 27 02/08/2011 BUN 13 02/08/2011 Creatinine 1.00 02/08/2011 Glucose Lvl 162 02/08/2011 Intake/Output Summary (Last 24 hours) at 02/09/11 1216 Last data filed at 02/08/11 1900 Gross per 24 hour Intake 0 ml Output 350 ml Net -350 ml Patient Weight in the past 168 hrs: Weight 02/09/11 0710 85.7 kg (188 lb 15 oz) 02/08/111937 86.8 kg (191 lb 5.8 oz) Evaluation/Plan: No complaints this AM. Trop 0.92. Cxr unremarkable. DP control adaquate. Continue IV heparin, beta nelly, ACEI, ASA, clopidogrel and statin. OCath possible PCI today. Otherwise as per Ms. Gee. Baldemar Jacome MD documented in this encounter H&P Notes Malcolm López MD - 02/08/2011 8:55 PM EDT Cardiology Admission H&P Patient Name: Ken Gomes Date of : 1940 Age: 71 [facility].o[facility] Admit Date: 02/08/2011 Inpatient Attending: Dr. Jacome PCP: ANGELA CHAVEZ MD Presenting Diagnosis/Chief Complaint: NSTEMI/ intermittent chest pain X 4-5 days Active Problem List: No resolved problems to display. Active Hospital Problems Diagnoses ??? Chest pain ??? Hyperlipidemia Resolved Hospital Problems Diagnoses Date Resolved History of Present Illness: HPI Comments: Patient is a 71 year old Gentleman with PMHx of HTN (non-compliant with meds when diagnosed 3-4 years ago), Hyperlipidemia (non-compliant with statin), Psoriasis, no cardiac history comesto [facility] from [facility] for evaluation of chest pain that started roughly 4-5 days ago on Wednesday. Patient reports that he has had about 1 episode of 2/10 chest pain// day for the last 4 days lasting about 30-45 minutes before gradually subsiding on it's own. Patient did not feel a need togo to a doctor as he said that the intensity of his chest discomfort was not too bad. On Wednesday night (last night) at about 7:00 pm, patient walked about 1/2 mile behind his house when he developedanother episode of chest discomfort 2-3/10 in intensity/ squeezing/ substernal with associated pain in isolated left forearm/ lasting all night (also occuring at rest) and into today afternoon with no relief with coenzyme Q-10 and 2 garlic capsules that he took. Patient reports no particular aggrevating factors and reports that the chest discomfort was constant. Patient reports never having chest discomfort like this before. His insisted that he go to the ED after she returned from [place] in the early afternoon. Patient's ROS is unremarkable with some associated diaphoresis which he says he has had for years. Patient denies: SOB, palpitations, light-headedness/ dizziness, syncope, leg swelling, recent weight changes, claudication, n/v, cough or fever. At [facility] (arrived at about 3:30 pm), he received 4 baby ASA, was given 2 SL NT, given 1L IVF bolus andstarted on heparin gtt at 1000 units/hr after his his initial troponin came back elevated at 10.2 with a CK-MB of 35 and CK of 620. His mild 3/10 chest discomfort subsided within an hour of being in the ED. Patient's EKG showed some LAE but no ST/T changes from a prior EKG done in 05/16 at [facility] (no old EKGs in [facility] records). HIs BP was found to be initially 202/104 at which time he was given mg p.o. As it improved to 108/72 before rebounding to 169/87 shortly before transfer. He is currently chest pain-free and is resting comfortably bedside with his family who have come to visit. Patient has no cardiac history but has been diagnosed with HTN and Hyperlipidemia about 3-4 years ago. He was prescribed initally prescribed lisinopril and metoprolol. He took them for a couple months?Before first discontinuing his metoprolol because he read about sexual side effects. He beta-nelly was replaced with amlodipine and patient eventually stopped taking all of his BP medications. He was prescribed pravastatin and agreed with his physician to improve his diet/ exercise/ weight loss rather than taking his medication. He explains, I don't like to take medicine unless I have to. He was diagnosed as having an impaired glucose tolerance test and decided against taking metformin (his HgbA1C was controlled at 6.4% in 08/20 at [facility]). Patient takes an array of vitamins and minerals including fish oil, garlic, Vitamin E, Zinc Sulfate, MVI at home. Patient describes himself as fairly active and is still working at the age of 71. 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 He explains the machine does all the work. He walks at least 3X/week and sometimes more frequently particulary when theweather is good (walking from 1/2 mile to 2 1/2 miles/ day). He has a remote smoking history quitting nearly 40 years ago (5-10 pack years) and has a brother who of an ID at age 63. Past Medical History: Past Medical History Diagnosis Date ??? Hypertension ??? Hyperlipidemia ??? Psoriasis Surgical History/Problems: Past Surgical History Procedure Date ??? Hernia repair 34 years ago Significant Family History: Family History Problem Relation Age of Onset ??? Cerebrovasular Accident Father ??? Cerebrovasular Accident Brother ??? Cardiac disease Brother REVIEW OF SYSTEMS: Review of Systems Constitutional: Positive for diaphoresis. Negative for fever, activity change, appetite change, fatigue and unexpected weight change. Respiratory: Positive for chest tightness. Negative for cough, shortness of breath and wheezing. Cardiovascular: Negative for palpitations and leg swelling. Gastrointestinal: Negative for abdominal pain and abdominal distention. Musculoskeletal: Negative for myalgias, back pain, arthralgias and gait problem. Neurological: Negative for dizziness, syncope, weakness and headaches. Medications: Current facility-administered medications ordered in [facility] Medication Dose Route Frequency Provider Last Rate Last Dose ??? heparin (porcine) 25,000 unit/500 mL infusion 20 mL/hr (02/08/11 1900) No current [facility]-ordered outpatient prescriptions on file. Allergies: No Known Allergies PHYSICAL EXAM: Last set of vital signs: BP 159/101 Pulse 88 Temp 36.8 ??C (98.2 ??F) Resp 18 Ht 1.727 m (5'8) Wt 86.8 kg (191 lb 5.8 oz) BMI 29.10 kg/m2 SpO2 98% Physical Exam Constitutional: He is oriented to person, place, and time. No distress. Neck: No JVD present. Cardiovascular: Normal rate, regular rhythm, normal heart sounds and intact distal pulses. Exam reveals no gallop, no S3, no S4 and no friction rub. No murmur heard. Pulmonary/Chest: Effort normal and breath sounds normal. No respiratory distress. He has no wheezes.He has no rales. He exhibits no tenderness. Abdominal: Soft. He exhibits no distension. No tenderness. Musculoskeletal: He exhibits no edema. Lymphadenopathy: He has no cervical adenopathy. Neurological: He is alert and oriented to person, place, and time. Skin: Skin is warm. Rash noted. He is diaphoretic. Psoriasis bilateral lower extremities most prominent in anterior aspect Diagnostics: I have independently visualized the following studies: EKG - NSR at 91 bpm/ LAE/ no ST/T changes (unchanged from prior EKG sent to [facility] from [facility] in 05/16 CXR - pending LABS: No results found for this or any previous visit (from the past 24 hour(s)).// pending (unable to addlabs afterwards once H&P is accepted) ASSESSMENT: Mr. Gomes's elevated troponins in both hospitals (of 10.2 and 0.79 at [facility] and [facility] respectively) categorizes him as a clear NSTEMI (JATIN risk score - 4, high risk; age - 1 pt, risk factors - 1pt, chestpain episodes - 1 pt, +ve troponin - 1 pt). Mr. Gomes has a long-standing history of non-compliance with medication and it is entirely possible that he is still having some residual chest pain without expressing this. He came to [facility] hospital at his 's insistence. I believe that he would benefit most from an early invasive strategy as opposed to stress test (active for his age). Another concern ishis potential non-compliance with a medication like Plavix if in fact he were found to have blockages requiring CHUCK. He is in need of counseling and it will perhaps require an intervention with his family to convince him to take medications prescribed to him. His renal function is good (GFR > 60) and I will keep him npo after midnight, gently hydrate him and obtain consent for possible cardiac catheterization. Another concern is his finger sticks at [facility] have been elevated (175 and 196 respectively). Although his last HgbA1C done fairly recently was good (6.4% in 08/20), I believe he is due for another HgbA1C 6 months later during this admission. He may have progressed from pre-diabetes to diabetes in the last 6 months. Lastly, his BP has been roughly about 160s/80s with HR in the 80s since his arrival at [facility]. His BP has been quite variable at [facility] ranging from a SBP in 200s to low 100s with only 20 mg of p.o lisinopril. I believe starting certain ACS meds (beta-nelly, wayne inhibitor) in addition to restarting his amlodipine tonight should help his BP tonight (without the need for IV medications). However, I will closely monitor for both hypotension and hypertension as I am concerned about his potential increased sensitivity to BP lowering medications. TREATMENT PLAN: - Admit to telemetry - cycle cardiac enzymes - start ACS meds (lisinopril 20 mg daily - his home dose, metoprolol 12.5 mg q 6 hrs (25 mg might betoo aggressive on his BP), atorvastatin 40 mg daily (LDL goal < 100/ f/u lipid profile), ASA 325 mg daily - will give plavix load at 600 mg tonight (has agreed to potential cardiac cath)/ will need to newspaper delivery counselor importance of potentially continuing plavix as an outpatient (75 mg/daily) - heparin gtt - SL NTG prn - 2D-Echo (none on record) - CXR - PA/lateral - pre-cath orders (npo after midnight, gentle hydration, consent) - f/u HgbA1C (goal < 6.5%) - monitor BP overnight (will be given 3 meds for BP tonight, WAYNE, beta-nelly, CCB)/ monitor for potential hypotension Code Status - FULL PPx - normally ambulatory but will be on heparin gtt/ GI Px - famotidine 20 mg BID (no PPI because of plavix) Provider: MALCOLM LÓPEZ Pager #: [phone] documented in this encounter Procedure Notes Provider, Scanning - 02/11/2011 6:40 PM EDTAssociated Order(s): SCAN DOC: LEGAL NURSE CONSULTANT; SCAN DOC: LEGAL NURSE CONSULTANT Provider, Scanning - 02/11/2011 4:50 PM EDTAssociated Order(s): SCAN DOC: IMPLANTABLE DEVICES; SCAN DOC: IMPLANTABLE DEVICES Provider, Scanning - 02/11/2011 4:23 PM EDTAssociated Order(s): SCAN DOC: CARDIAC CATH; SCAN DOC: CARDIAC CATH Provider, Scanning - 02/11/2011 4:23 PM EDTAssociated Order(s): SCAN DOC: CARDIAC CATH; SCAN DOC: CARDIAC CATH documented in this encounter Miscellaneous Notes Miscellaneous - Provider, Scanning - 02/11/2011 5:24 PM EDT Miscellaneous - Provider, Scanning - 02/11/2011 5:21 PM EDT Miscellaneous - Provider, Scanning - 02/11/2011 4:13 PM EDT Discharge Summary - Bonita Valdez, POLY PACKER AND HEAT SEALER - 02/10/2011 10:55 AM EDT Inpatient Cardiology Medicine - Discharge Summary Patient Name: Ken Gomes Patient Age: 71 y.o. Birthdate: 1940 Admit date: 02/08/2011 Discharge date and time: 02/10/2011 Attending Physician: Baldemar Jacome II, MD Discharge Diagnoses (Hospital Problems) and Secondary Diagnoses (Chronic Problems): Active Hospital Problems Diagnoses ??? NSTEMI (non-ST elevated myocardial infarction) Cardiac cath 02/09/2011 with bare metal stent to mid circumflex ??? Hyperlipidemia Resolved Hospital Problems Diagnoses Date Resolved ??? Chest pain 02/10/2011 There are no active non-hospital problems to display for this patient. Operations/Major Procedures: Operations: CARDIAC CATHETERIZATION 02/09/2011 Echo 02/09/2011 History of Presentation: Patient is a 71 year old Gentleman with PMHx of HTN (non-compliant with meds when diagnosed 3-4 years ago), Hyperlipidemia (non-compliant with statin), Psoriasis, no cardiac history comes to [facility] from [facility] for evaluation of chest pain that started roughly 4-5 days ago on Wednesday. Patient reports that he has had about 1 episode of 2/10 chest pain// day for the last 4 days lasting about 30-45 minutes before gradually subsiding on it's own. Patient did not feel a need to go to a doctor as he said that the intensity of his chest discomfort was not too bad. On Wednesday night (last night) at about 7:00 pm, patient walked about 1/2 mile behind his house when he developed another episode of chest discomfort 2-3/10 in intensity/ squeezing/ substernal with associated pain in isolated left forearm/ lasting all night (also occuring at rest) and into today afternoon with no relief with coenzyme Q-10 and 2 garlic capsules that he took. Patient reports no particular aggravating factors and reports that the chest discomfort was constant. Patient reports never having chest discomfort likethis before. His insisted that he go to the ED after she returned from [place] in the early afternoon. Patient's ROS is unremarkable with some associated diaphoresis which he says he has had for years. Patient denies: SOB, palpitations, light-headedness/ dizziness, syncope, leg swelling, recent weight changes, claudication, n/v, cough or fever. Hospital Course: Non ST elevation myocardial infarction Given the patient's risk factors and positive biomarkers, it was decided to proceed with coronary angiography. 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 He had mild diffuse disease throughout his left main and three main coronary arteries. He had a long proximal 50% stenosis in the LAD and a 65% stenosis of his second diagonal. His circumflex had a mid 98% stenosis present and this was stented with a bare metal stent. Distal flow was slow and from his LAD. His RCA had a proximal 50% stenosis. He will need to continue plavix for a minimum of 3months, preferably one year. Given his triple vessel disease he will need to have a stress test in about 4 weeks. Echo done showed EF 60% with a lateral wall motion abnormality. No significant valvular disease. Mild LVH present. He was started on plavix, beta nelly, statin, prn nitroglycerin and aspirin. He was continued on his WAYNE inhibitor. Hyperlipidemia Lipid profile showed total cholesterol 184 with LDL 119. Patient has been on no lipid lowering medication prior to his hospitalization. His goal LDL will be less than 70. He will need to have his LFTs and fasting lipids rechecked in 6 weeks. Smoking cessation was advised & discussed-n/a The patient was evaluated by the cardiac rehab team. The patient tolerated supervised ambulation in the hallway and up/downstairs with no anginal symptoms. It was recommended that the patient return home and participate in a supervised cardiac rehab program at [facility]. The patient was discharged home in stable condition. Important Studies and Lab Data: Lab Results Component Value Date WBC 9.9 02/10/2011 HGB 15.5 02/10/2011 HCT 46.1 02/10/2011 PLATELET 209 02/10/2011 Recent Labs Basename 02/08/112112 ??? INR 1.1 Lab Results Component Value Date NA 138 02/10/2011 K 3.8 02/10/2011 CL 105 02/10/2011 CO2 23 02/10/2011 BUN 13 02/10/2011 CREATININE 1.15 02/10/2011 Recent Labs Basename 02/08/112112 ??? TSH 2.43 Recent Labs Basename 02/09/11 0249 ??? HA1C 6.6* Pending Studies and Lab Data: none Discharge Conditions/Prognosis: Ambulatory without anginal symptoms Discharge to: Home Discharge Medications: Current Discharge Medication List New Meds Details aspirin 325 mg Take 325 mg by mouth daily. Qty: 30 tablet Refills: clopidogrel (PLAVIX) 75 mg Take 75 mg by mouth daily. Qty: 30 tablet Refills: 3 nitroGLYcerin (NITROSTAT) 0.[address] 0.4 mg = 0.4 mg under the tongue every 5 minutes as needed for Chest pain. Qty: 90 tablet Refills: 12 simvastatin (ZOCOR) 80 mg Take 80 mg by mouth nightly. Qty: 30 tablet Refills: 2 metoprolol succinate (TOPROL-XL) 50 mg Take 50 mg by mouth daily. Qty: 30 tablet Refills: 2 Continued medications, unchanged Details amlodipine (NORVASC) 5 mg Take 5 mg by mouth daily. Qty: Refills: lisinopril (PRINIVIL;ZESTRIL) 20 mg Take 20 mg by mouth daily. Qty: Refills: triamcinolone (KENALOG) 0.1 % cream Apply topically 2 times daily as needed. Qty: Refills: Updated Allergies/ADRs: No Known Allergies Follow-up Recommendations for Providers: Please follow up LFTs and total cholesterol in 6 weeks as statin was started Please titrate up beta nelly as tolerated Instructions Given to Patient at Discharge: Provider Instructions Anti-coagulation follow up: N/A Call your doctor if: Chest pain, dyspnea, pain or swelling in legs occurs. If you have non-emergent questions between now and the time of your follow up appointments: During 8am-5pm Wednesday through Wednesday call [phone] to speak with a nurse in the cardiology clinic All other times call [phone] and ask to speak to the production worker counselor nurses' association. Return to work: One week Driving: No driving for 48 hours after catheterization. Follow up Appointments: PCP Dr. Chavez Friday February 18, 2011 at 10:30am in [facility] [employer] [address] Negron in [facility] You will get a letter about this appointment in the mail Home oxygen therapy: N/A Arrangements for VNA/home care: none General Instructions Provider Contact Information: BONITA VALDEZ, POLY PACKER AND HEAT SEALER [phone] Discharge References/Attachments: Discharge References/Attachments None Signed: BONITA VALDEZ 02/10/2011 Miscellaneous - Provider, Scanning - 02/09/2011 4:19 AM EDT Miscellaneous - Provider, Scanning - 02/09/2011 4:19 AM EDT documented in this encounter Plan of Treatment Not on filedocumented as of this encounter Procedures Procedure Name Priority Date/Time Associated Comments Diagnosis CARDIAC CATHETERIZATION Routine 02/12/2011 8:12 PM EDT LEGAL NURSE CONSULTANT SCAN 02/11/2011 6:40 Resu lts for this PM EDT procedure are i n the results section. IMPLANTABLE DEVICES SCAN 02/11/2011 4:50 Results for this PM EDT procedure are i n the results section. CARDIAC CATH SCAN 02/11/2011 4:23 Results for this PM EDT procedure are i n the results section. CARDIAC CATH SCAN 02/11/2011 4:23 Results for this PM EDT procedure are i n the results section. POCT GLUCOSE Routine 02/10/2011 12:01 Results for this PM EDT procedure are i n the results section. BMP W/FASTING GLUCOSE STAT 02/10/2011 8:07 Res ults for this AM EDT procedure are i n the results section. DIFFERENTIAL, AUTOMATED STAT 02/10/2011 8:07 R esults for this AM EDT procedure are i n the results section. CARDIAC ENZYMES STAT 02/10/2011 8:07 Results f or this ([facility]) AM EDT procedure are i n the results section. CBC (WITH DIFF) STAT 02/10/2011 8:07 Results f or this AM EDT procedure are i n the results section. HEPATIC FUNCTION PANEL STAT 02/10/2011 8:07 Re sults for this AM EDT procedure are i n the results section. POCT GLUCOSE Routine 02/10/2011 7:55 Results for this AM EDT procedure are i n the results section. EKG 12-LEAD STAT 02/10/2011 7:14 Chest pain Results for this AM EDT procedure are i n the results section. POCT GLUCOSE Routine 02/09/2011 8:27 Results for this PM EDT procedure are i n the results section. POCT GLUCOSE Routine 02/09/2011 6:22 Results for this PM EDT procedure are i n the results section. EKG 12-LEAD LUIS MIGUEL 02/09/2011 4:46 Chest pain Results for this PM EDT procedure are i n the results section. CARDIAC CATHETERIZATION 02/09/2011 2:18 angina PM EDT POCT GLUCOSE Routine 02/09/2011 12:28 Results for this PM EDT procedure are i n the results section. ECHOCARDIOGRAM LIMITED Routine 02/09/2011 10:52 R esults for this AM EDT procedure are i n the results section. EKG 12-LEAD Routine 02/09/2011 10:42 Results for this AM EDT procedure are i n the results section. CARDIAC ENZYMES Routine 02/09/2011 10:24 Results for this ([facility]) AM EDT procedure are i n the results section. APTT STAT 02/09/2011 10:24 Results for this AM EDT procedure are i n the results section. POCT GLUCOSE Routine 02/09/2011 8:09 Results for this AM EDT procedure are i n the results section. CARDIAC ENZYMES Routine 02/09/2011 5:56 Results f or this ([facility]) AM EDT procedure are i n the results section. DIFFERENTIAL, AUTOMATED Routine 02/09/2011 2:49 R esults for this AM EDT procedure are i n the results section. APTT STAT 02/09/2011 2:49 Results for this AM EDT procedure are i n the results section. CBC (WITH DIFF) Routine 02/09/2011 2:49 Results f or this AM EDT procedure are i n the results section. LDL CHOLESTEROL, DIRECT Routine 02/09/2011 2:49 R esults for this AM EDT procedure are i n the results section. HEMOGLOBIN A1C Routine 02/09/2011 2:49 Results fo r this AM EDT procedure are i n the results section. GLUCOSE, FASTING Routine 02/09/2011 2:49 Results for this AM EDT procedure are i n the results section. LIPID PANEL (REFLEX Routine 02/09/2011 2:49 Resul ts for this DIRECT LDL) AM EDT procedure are i n the results section. XR CHEST PA AND LATERAL Routine 02/08/2011 9:24 R esults for this PM EDT procedure are i n the results section. DIFFERENTIAL, AUTOMATED Routine 02/08/2011 9:13 R esults for this PM EDT procedure are i n the results section. CARDIAC ENZYMES Routine 02/08/2011 9:13 Results f or this ([facility]) PM EDT procedure are i n the results section. APTT Routine 02/08/2011 9:13 Results for this PM EDT procedure are i n the results section. PROTHROMBIN TIME Routine 02/08/2011 9:13 Results for this PM EDT procedure are i n the results section. CBC (WITH DIFF) Routine 02/08/2011 9:13 Results f or this PM EDT procedure are i n the results section. TSH Routine 02/08/2011 9:13 Results for this PM EDT procedure are i n the results section. PHOSPHORUS Routine 02/08/2011 9:13 Results for this PM EDT procedure are i n the results section. PRO-BRAIN NATRIURETIC Routine 02/08/2011 9:13 Res ults for this PEPTIDE PM EDT procedure are i n the results section. MAGNESIUM Routine 02/08/2011 9:13 Results for this PM EDT procedure are i n the results section. CALCIUM Routine 02/08/2011 9:13 Results for this PM EDT procedure are i n the results section. HEPATIC FUNCTION PANEL Routine 02/08/2011 9:13 Re sults for this PM EDT procedure are i n the results section. BASIC METABOLIC PANEL Routine 02/08/2011 9:13 Res ults for this (NON-FASTING) PM EDT procedure are in the results section. POCT GLUCOSE Routine 02/08/2011 9:07 Results for this PM EDT procedure are i n the results section. EKG 12-LEAD Routine 02/08/2011 9:00 Results for this PM EDT procedure are i n the results section. documented in this encounter Results CARDIAC CATHETERIZATION (02/12/2011 8:12 PM EDT) Specimen (Source) Anatomical Location Collection Method / Collectio n Time Received Time / Laterality Volume Narrative This result has an attachment that is no t available. Baldemar Jacome II, MD CARDIAC CATH ORDERABLES SCAN DOC: LEGAL NURSE CONSULTANT (02/11/2011 6:40 PM EDT) Narrative 02/12/2011 2:00 PM EDT Procedure Note Provider, Scanning - 02/11/2011 6:40 PM EDT Scanning Provider MEDIA MGR SCAN EXT ORDR/RSLT SCAN DOC: IMPLANTABLE DEVICES (02/11/2011 4:50 PM EDT) Narrative 02/11/2011 4:50 PM EDT Procedure Note Provider, Scanning - 02/11/2011 4:50 PM EDT Scanning Provider MEDIA MGR SCAN EXT ORDR/RSLT SCAN DOC: CARDIAC CATH (02/11/2011 4:23 PM EDT) Narrative 02/13/2011 9:43 AM EDT Procedure Note Provider, Scanning - 02/11/2011 4:23 PM EDT Scanning Provider MEDIA MGR SCAN EXT ORDR/RSLT SCAN DOC: CARDIAC CATH (02/11/2011 4:23 PM EDT) Narrative 02/13/2011 9:43 AM EDT Procedure Note Provider, Scanning - 02/11/2011 4:23 PM EDT Scanning Provider MEDIA MGR SCAN EXT ORDR/RSLT POCT GLUCOSE LAB USE ONLY (02/10/2011 12:01 PM EDT) P athologist Signature POC Glucose 110 60 - 199 CERNER mg/dL MILL[facility]NIUM Comment: Supplemental ranges: <110 mg/dL before meals <200 mg/dL all other times of the day Specimen Anatomical Collection Method Collection Time Receive d Time (Source) Location / / Volume Laterality Blood specimen 02/10/2011 12:01 1 (specimen) PM EDT 12:01 PM EDT Baldemar Jacome II, MD POINT OF CARE TEST ORDERABLE S Performing Organization Address City/State/[place] [address] CERNER MILLENNIUM (ABNORMAL) REFLEX LAB-A-DIFF (02/10/2011 8:07 AM EDT) Patholo gist Method Time Signature Neutrophils % 73.2 (H) 34.0 - CERNER 71.0 % [facility] Neutr Abs (ANC) 7.24 (H) 1.50 - CERNER 6.30 MILLENNIUM x10(3)/mc L Lymphocytes % 14.8 (L) 19.0 - CERNER 53.0 % MILLENNIUM Lymphocytes Abs 1.5 1.0 - 3.6 CERNER x10(3)/mc MILLENNIUM L Monocytes % 10.6 4.0 - CERNER 13.0 % MILLENNIUM Monocyte Abs 1.1 (H) 0.2 - 1.0 CERNER x10(3)/mc MILLENNIUM L Eosinophils % 1.0 0.0 - 7.0 CERNER % MILLENNIUM Eosinophils Abs 0.1 0.0 - 0.5 CERNER x10(3)/mc MILLENNIUM L Basophils % 0.2 0.0 - 2.0 CERNER % MILLENNIUM Basophils Abs 0.0 0.0 - 0.2 CERNER x10(3)/mc MILLENNIUM L Immature Gran % 0.20 0.00 - CERNER 0.66 % MILLENNIUM Comment: Immature granulocytes(IG's)percentage an d absolute count will include metamyelocytes, myelocytes, and promyelo cytes. Blood smears from CBCs yielding IG's will be scanned manually for concor dance. If this scan disagrees with the automated IG or if promyelocytes are not ed, a manual differential will be performed. Aide Gran Abs 0.02 0.00 - 0.05 x10(3)/mcL CER NER MILLENNIUM Specimen Anatomical Collection Method Collection Time Receive d Time (Source) Location / / Volume Laterality Blood specimen 02/10/2011 8:07 AM 011 8:39 (specimen) EDT AM EDT Baldemar Jacome II, MD HEMATOLOGY ORDERABLES Performing Organization Address [facility] [place] [address] CERNER MILLENNIUM Hepatic Function Panel (02/10/2011 8:07 AM EDT) P athologist Signature Total Protein 6.9 6.4 - 8.3 CERNER gm/dL MILLENNIUM Albumin 3.7 3.2 - 5.2 CERNER gm/dL MILLENNIUM AST 36 0 - 39 CERNER unit/L MILLENNIUM ALT 18 0 - 55 CERNER unit/L MILLENNIUM Alk Phos 69 40 - 120 CERNER unit/L MILLENNIUM Total 0.5 0.2 - 1.3 CERNER Bilirubin mg/dL MILLENNIUM Bili, Direct 0.1 0.0 - 0.3 CERNER mg/dL MILLENNIUM Specimen Anatomical Collection Method Collection Time Receive d Time (Source) Location / / Volume Laterality Blood specimen 02/10/2011 8:07 AM 011 8:39 (specimen) EDT AM EDT Baldemar Jacome II, MD CHEMISTRY ORDERABLES Performing Organization Address [facility] [place] [address] CERNER MILLENNIUM (ABNORMAL) Cardiac Enzymes (02/10/2011 8:07 AM EDT) P athologist Signature Troponin-T 0.98 (H) <=0.03 CERNER ng/mL MILLENNIUM Comment: 0.03 ng/mL: Represents the 99th percenti le upper reference limit for normals. >0.03 ng/mL: Elevated cardiac troponin T level indicative of myocardial damage. Diagnosis of acute, evolving or recent M I requires a typical rise and gradual fall of cTnT with at least ONE of the fo llowing: a) Ischemic symptoms b) Development of pathologic Q waves on the ECG c) ECG changes indicative of eschemia (S -T segment elevation/depression) d) Coronary artery intervention Serial bloods should be obtained for pineda ting on admission, at 6 to 9 hrs and again at 12 to 24 hrs if earlier samples are negative and the clinical index of suspicion is high. Reference: [Myocardial infarction redefined a consensus document of the Joint [place] Society of Cardiology/[place] [employer] Committee for the redefinition of myocardial infarction. Journal of the [place] College of Cardi ology 2000; 36: 959-969] CK, Total 199 0 - 200 unit/L CERJESS MILLENNI UM Specimen Anatomical Collection Method Collection Time Receive d Time (Source) Location / / Volume Laterality Blood specimen 02/10/2011 8:07 AM 011 8:39 (specimen) EDT AM EDT Baldemar Jacome II, MD CHEMISTRY ORDERABLES Performing Organization Address City/State/ZIP Code Phon e Number [place] [id number] CERNER MILLENNIUM (ABNORMAL) CBC (with Diff) (02/10/2011 8:07 AM EDT) P athologist Signature WBC 9.9 4.0 - 10.0 CERNER x10(3)/mcL MILLENNIUM RBC 5.27 4.63 - CERNER 6.08 MILLENNIUM x10(6)/mcL Hemoglobin 15.5 13.7 - CERNER 17.5 gm/dL MILLENNIUM Hematocrit 46.1 40.0 - CERNER 51.0 % MILLENNIUM MCV 87.5 79.0 - CERNER 92.0 fL MILLENNIUM MCH 29.4 25.6 - CERNER 32.2 pg MILLENNIUM MCHC 33.6 32.0 - CERNER 36.5 gm/dL MILLENNIUM Platelets 209 145 - 370 CERNER x10(3)/mcL [facility] RDWSD 45.9 35.0 - CERNER 46.0 fL [facility] RDWCV 14.5 (H) 10.9 - CERNER 14.4 % MILLENNIUM MPV 10.2 9.0 - 12.0 CERNER fL [facility] Specimen Anatomical Collection Method Collection Time Receive d Time (Source) Location / / Volume Laterality Blood specimen 02/10/2011 8:07 AM 011 8:39 (specimen) EDT AM EDT Baldemar Jacome II, MD HEMATOLOGY ORDERABLES Performing Organization Address City/State/[place] [address] CERNER MILLENNIUM (ABNORMAL) BMP w/fasting Glucose (02/10/2011 8:07 AM EDT) P athologist Signature Glucose 171 (H) 65 - 99 CERNER Fasting mg/dL [facility] Comment: ?Fasting* Glucose Interpretive C riteria Normal ?65-99 mg/dL Impaired Fasting glucose ?100-125 mg/dL Consistent with Diabetes Mellitus ? >or= 126 mg/dL *Fasting is defined as no caloric intake for at least 8 hours In the absence of unequivocal hypergly cemia a plasma glucose value of >or= 126 mg/dL should be repeated on a subseq u day. Diagnosis and Classification of Diabetes Mellitus, Position Statement from the [place] [employer]. ??Diabete s Care, Volume 33, Supplement 1, Oct 2009 BUN 13 10 - 20 mg/dL CERNER MILLENNIU M Creatinine 1.15 0.80 - 1.50 mg/dL CERNER MILL ENNIUM Sodium 138 135 - 145 mmol/L CERNER JOHN NIUM Potassium 3.8 3.5 - 5.0 mmol/L CERNER JOHN NIUM Comment: Please note: ??Patients with WBC >100,00 0 may have falsely elevated Potassium levels. ??For accurate Potassium quantif ication in these patients send serum separator tube (gold top) for subsequent determinations. ??Contact the Clinical Chemistry Laboratory if there are any qu estions. Chloride 105 98 - 107 mmol/L CERNER MILLENN IUM CO2 23 22 - 31 mmol/L CERNER MILLENNI UM Anion Gap 10 5 - 15 mmol/L CERNER MILLENNIU M Calcium 9.2 8.5 - 10.5 mg/dL CERNER JOHN NIUM Estimated GFR >60 >=60 CERNER MILLENNIU M Comment: The National Kidney Disease Education Pr ogram (NKDEP) has recommended all laboratories report estimated GFR (eGFR) along with plasma creatinine measurements to assist you with recognit ion of early kidney disease. Caveats: ??Plasma creatinine should be a t steady-state (unchanged within the past week). For patient s multiply eGFR by 1.2.MDRD equation has not been validated for pediatric pat ients and is only valid for patients with age >= 18 years. At present, NKDEP does NOT recommend usi ng the MDRD equation for drug dosing purposes and pharmacists should continue to use their current dosing methods. In addition, numerical eGFR values great er than 60 ml/min/1.73 square meters should be treated as > 60, and not an ex act number due to greater inaccuracies at these higher values. Per NKDEP, they classify normal renal function as any GFR >60ml/min/1.73 square meters; chronic kidney disease wh en GFR <60, and renal failure when GFR <15. ??This calculation may not be valid for patients with atypical muscle mass (very lean or obese), acute renal failur e, and in patients with diabetic kidney disease. References: http://nkdep.nih.gov/resources/NKDEP_Sug gestn4Labs_0606_508.pdf http://www.kidney.org/professionals/kls/ pdf/faq_gfr.pdf Specimen Anatomical Collection Method Collection Time Receive d Time (Source) Location / / Volume Laterality Blood specimen 02/10/2011 8:07 AM 011 8:39 (specimen) EDT AM EDT Baldemar Jacome II, MD CHEMISTRY ORDERABLES Performing Organization Address City/State/ZIP Code Ph[place] [address] [facility] POCT GLUCOSE LAB USE ONLY (02/10/2011 7:55 AM EDT) P athologist Signature POC Glucose 188 60 - 199 CERNER mg/dL [facility] Comment: Supplemental ranges: <110 mg/dL before meals <200 mg/dL all other times of the day Specimen Anatomical Collection Method Collection Time Receive d Time (Source) Location / / Volume Laterality Blood specimen 02/10/2011 7:55 AM 011 7:55 (specimen) EDT AM EDT Baldemar Jacome II, MD POINT OF CARE TEST ORDERABLE S Performing Organization Address City/[facility]/ZIP Code Phon e Number [place] [address] [facility] EKG 12-LEAD Is a rhythm strip needed?: No; Reason for Exam:: Chest Pain (02/10/2011 7:14 AM EDT) Component Value Ref Range Test Analysis Performed Pathologis t Method Time At Signature Ventricular rate 56 BPM MUSE SYSTEM Atrial Rate 56 BPM MUSE SYSTEM P-R Interval 156 ms MUSE SYSTEM QRS Duration 102 ms MUSE SYSTEM Q-T Interval 426 ms MUSE SYSTEM QTC Calculated 411 ms MUSE SYSTEM (Bezet) Calculated P [place] 42 degrees MUSE SYSTEM Calculated R [place] -32 degrees MUSE SYSTEM Calculated T [place] 38 degrees MUSE SYSTEM INTERPRETATION Sinus bradycardia MUSE SY STEM Left axis deviation Abnormal ECG When compared with ECG of 09-FEB-2011 16:46, (unconfirmed) No significant change was found Confirmed by MD Brandon, Raj ([id number]) on 02/10/2011 3:37:06 PM Specimen Anatomical Collection Method Collection Time Receive d Time (Source) Location / / Volume Laterality 02/10/2011 7:14 AM 1 3:37 EDT PM EDT Serge Jhaveri MD ECG ORDERABLES Performing Organization Address City/[facility]/ZIP Code Phon e Number MUSE SYSTEM (ABNORMAL) POCT GLUCOSE LAB USE ONLY (02/09/2011 8:27 PM EDT) P athologist Signature POC Glucose 222 (H) 60 - 199 CERNER mg/dL [facility] Comment: Supplemental ranges: <110 mg/dL before meals <200 mg/dL all other times of the day Specimen Anatomical Collection Method Collection Time Receive d Time (Source) Location / / Volume Laterality Blood specimen 02/09/2011 8:27 PM 011 8:27 (specimen) EDT PM EDT Baldemar Jacome II, MD POINT OF CARE TEST ORDERABLE S Performing Organization Address [facility]/[place] [address] CERNER [employer] POCT GLUCOSE LAB USE ONLY (02/09/2011 6:22 PM EDT) athologist Signature POC Glucose 109 60 - 199 CERNER mg/dL [employer] Comment: Supplemental ranges: <110 mg/dL before meals <200 mg/dL all other times of the day Specimen Anatomical Collection Method Collection Time Receive d Time (Source) Location / / Volume Laterality Blood specimen 02/09/2011 6:22 PM 011 6:22 (specimen) EDT PM EDT Baldemar Jacome II, MD POINT OF CARE TEST ORDERABLE S Performing Organization Address [facility]/[place] [address] [employer] EKG 12-LEAD Is a rhythm strip needed?: No; Reason for Exam:: Chest Pain (02/09/2011 4:46 PM EDT) Component Value Ref Range Test Analysis Performed Pathologis t Method Time At Signature Ventricular rate 57 BPM MUSE SYSTEM Atrial Rate 57 BPM MUSE SYSTEM P-R Interval 156 ms MUSE SYSTEM QRS Duration 106 ms MUSE SYSTEM Q-T Interval 432 ms MUSE SYSTEM QTC Calculated 420 ms MUSE SYSTEM (Bezet) Calculated P [place] 54 degrees MUSE SYSTEM Calculated R [place] -45 degrees MUSE SYSTEM Calculated T [place] 36 degrees MUSE SYSTEM INTERPRETATION Sinus bradycardia MUSE SY STEM Left axis deviation Abnormal ECG When compared with ECG of 09-FEB-2011 10:42, No significant change was found Confirmed by MD Brandon, Raj ([id number]) on 02/10/2011 3:13:47 PM Specimen Anatomical Collection Method Collection Time Receive d Time (Source) Location / / Volume Laterality 02/09/2011 4:46 PM 1 3:13 EDT PM EDT Serge Jhaveri MD ECG ORDERABLES Performing Organization Address City/State/ZIP Code Phon e Number MUSE SYSTEM POCT GLUCOSE LAB USE ONLY (02/09/2011 12:28 PM EDT) P athologist Signature POC Glucose 113 60 - 199 CERNER mg/dL [facility] Comment: Supplemental ranges: <110 mg/dL before meals <200 mg/dL all other times of the day Specimen Anatomical Collection Method Collection Time Receive d Time (Source) Location / / Volume Laterality Blood specimen 02/09/2011 12:28 1 (specimen) PM EDT 12:28 PM EDT Baldemar Jacome II, MD POINT OF CARE TEST ORDERABLE S Performing Organization Address City/State/[place] [address] [facility] Echocardiogram limited (02/09/2011 10:52 AM EDT) Specimen (Source) Anatomical Location Collection Method / Collectio n Time Received Time / Laterality Volume 07/23/2011 Narrative [facility] - 07/23/2011 3:52 PM EDT Procedure: ? Transthoracic Echocardiogram ? Patient: ? NIDIA SKINNER M ? (Age): 1940(71) Med Rec#: ?[id number] ?Sex: ?M ? Site Loc: ?[facility] ?Ht / Wt: ??178(cm)/86(kg) Pt. Loc: ? Adult Floor ? BSA: ?2.06 Study Date: ?02/09/2011 ?Pt. Type: Inpatient Tape: ? Referring: Malcolm López Referring: NILA CHAND J Community Marketing Manager: Unknown Social Services Aide: Mateo Rincon [facility] Interpreting Fellow: Alla Vera Interpreting Fellow: Angela Newman Diagnosis: ??Chest pain (786.50) CPT Code(s): ??Echo Full (74740), ??Spec tral Doppler (06771), ??Color Doppler (20813), Indication(s): ??Chest Pain Rhythm: SUMMARY: 1. The left ventricular chamber size is normal. Mild concentric left ventricular hypertrophy is observed. ??T he left ventricular ejection fraction is normal and estimated to be 6 0%. There is hypokinesis of the lateral wall. 2. Right ventricular chamber size, wall thickness, and systolic function are within normal limits. The estimated pulmonary artery systolic pressure is 28 mmHg. The estimated right atrial pressure is 3 mmHg. 3. There is no hemodynamically significa nt valve disease. 4. The pericardium appears normal and th ere is no evidence of a pericardial effusion. 5. No other study for comparison. FINDINGS: Left Ventricle ?The left ventricular chamber size is normal. ?Mild concentric left ventricular h ypertrophy is observed. ?The visually estimated left ventri cular ejection fraction is 60% ?There are left ventricular segment al wall motion abnormalities present, as shown in the diagram below. ?Doppler assessment is consistent w ith normal left sided filling pressure. ?The ??basal anterolateral, mid ant erolateral and mid inferolateral wall segments are hypokinetic. Left Atrium ?The left atrium is normal in size. Right Ventricle ?Right ventricular chamber size, wa ll thickness, and systolic function are within normal limits. ?The estimated pulmonary artery sys tolic pressure is 28 mmHg. ?The estimated right atrial pressur e is 3 mmHg. Right Atrium ?The right atrium is normal in size . Aortic Valve ?The aortic valve is not well visua lized. ?The aortic valve is probably tricu spid. ?There is no evidence of aortic noemy ve thickening. ?There is a trace of aortic regurgi tation present. Mitral Valve ?The mitral valve appears normal in structure and function. ?There is mild (1+/4+) mitral regur gitation present. Tricuspid Valve ?The tricuspid valve appears normal in structure and function. ?There is trace tricuspid regurgita tion present. Pulmonic Valve ?The pulmonic valve appears normal in structure and function. Pericardium ?The pericardium appears normal and there is no evidence of a pericardial effusion. Aorta ?The aortic root is normal in size. ?The ascending aorta is normal in s ize. Pulmonary Artery ?The main pulmonary artery appears normal. Venous ?The inferior vena cava appears nor mal in size. ?There is a greater than 50% respir atory change in the inferior vena cava dimension. Misc ?There is no hemodynamically signif icant valve disease. ?See remainder of report for additi onal findings. ?I personally reviewed the images a nd edited the resident's/fellow's interpretation. ?Two-dimensional echo, spectral Dop pler and color Doppler performed. Wall Motion: Segment Name ?Rest ? Base-Anteroseptal ?? Normal ? Base-Anterior ? Normal ? Base-Anterolateral ??Hypokinetic ? Base-Posterolateral Normal ? Base-Inferior ? Normal ? Base-Inferoseptal ?? Normal ? Mid-Anteroseptal ?Normal ? Mid-Anterior ?Normal ? Mid-Anterolateral ?? Hypokinetic ? Mid-Posterolateral ??Hypokinetic ? Mid-Inferior ?Normal ? Mid-Inferoseptal ?Normal ? [place]-Septal ? Normal ? [place]-Anterior ? Normal ? [place]-Lateral ?Normal ? [place]-Inferior ? Normal ? [place]-Tip ?Normal ? Chambers ?Value ?Units (Range) ? IVSd 2D ? 1.2 ?cm ? LVIDd 2D ?4.8 ?cm ? PWd 2D ?1.4 ?cm ? LVIDs 2D ?2.9 ?cm ? LVFS 2D ? 40 ? % ? LA area ? 20 ? cm2 (<21) ? RA area ? 17 ? cm2 (<18) ? Ao root ? 3.1 ?cm (2.1 to 3.6) ? Asc Ao ?3.2 ?cm (2 to 3.5) ? Mitral Valve ?Value ?Units (Range) ? E peak ?0.6 ?m/sec ? E/A ratio ? 0.8 ?ratio ? MVDT ?232 ?msec ? E1 ?0.1 ?m/sec ? E/E1 ?6 ?ratio ? Tricuspid/Pulmonic Valves ?Value ?Units (Range) ? TR peak lamont ? 2.5 ?m/sec ? RAP ? 3 ?mmHg ? RVSP/PASP ? 28 ? mmHg ? This report has been electronically sign ed by: _ Serge Pizarro M.D. ? 07/23/2011 15:51:41 [facility] Procedure Note Serge Pizarro MD - 07/23/2011Formatti ng of this note might be different from the original. Procedure: Transthoracic Echocardiogram Patient: NIDIA Calderon (Age): [birth year]) Med Rec#: [id number] Sex: M Site Loc: [facility] Ht / Wt: 178(cm)/86(kg) Pt. Loc: Adult Floor BSA: 2.06 Study Date: 02/09/2011 Pt. Type: Inpatie nt Tape: Referring: Malcolm López Referring: NILA CHAND J Community Marketing Manager: Unknown Social Services Aide: Mateo Rincon RDCS Interpreting Fellow: Alla Vera Interpreting Fellow: Angela Newman Diagnosis: Chest pain (786.50) CPT Code(s): Echo Full (97036), Spectral Doppler (75277), Color Doppler (98266), Indication(s): Chest Pain Rhythm: SUMMARY: 1. The left ventricular chamber size is normal. Mild concentric left ventricular hypertrophy is observed. The left ventricular ejection fraction is normal and estimated to be 6 0%. There is hypokinesis of the lateral wall. 2. Right ventricular chamber size, wall thickness, and systolic function are within normal limits. The estimated pulmonary artery systolic pressure is 28 mmHg. The estimated right atrial pressure is 3 mmHg. 3. There is no hemodynamically significa nt valve disease. 4. The pericardium appears normal and th ere is no evidence of a pericardial effusion. 5. No other study for comparison. FINDINGS: Left Ventricle The left ventricular chamber size is no rmal. Mild concentric left ventricular hypert rophy is observed. The visually estimated left ventricular ejection fraction is 60% There are left ventricular segmental wa ll motion abnormalities present, as shown in the diagram below. Doppler assessment is consistent with n ormal left sided filling pressure. The basal anterolateral, mid anterolate ral and mid inferolateral wall segments are hypokinetic. Left Atrium The left atrium is normal in size. Right Ventricle Right ventricular chamber size, wall th ickness, and systolic function are within normal limits. The estimated pulmonary artery systolic pressure is 28 mmHg. The estimated right atrial pressure is 3 mmHg. Right Atrium The right atrium is normal in size. Aortic Valve The aortic valve is not well visualized . The aortic valve is probably tricuspid. There is no evidence of aortic valve th ickening. There is a trace of aortic regurgitatio n present. Mitral Valve The mitral valve appears normal in stru cture and function. There is mild (1+/4+) mitral regurgitat ion present. Tricuspid Valve The tricuspid valve appears normal in s tructure and function. There is trace tricuspid regurgitation present. Pulmonic Valve The pulmonic valve appears normal in st ructure and function. Pericardium The pericardium appears normal and ther e is no evidence of a pericardial effusion. Aorta The aortic root is normal in size. The ascending aorta is normal in size. Pulmonary Artery The main pulmonary artery appears brianne l. Venous The inferior vena cava appears normal i n size. There is a greater than 50% respiratory change in the inferior vena cava dimension. Misc There is no hemodynamically significant valve disease. See remainder of report for additional findings. I personally reviewed the images and ed ited the resident's/fellow's interpretation. Two-dimensional echo, spectral Doppler and color Doppler performed. Wall Motion: Segment Name Rest Base-Anteroseptal Normal Base-Anterior Normal Base-Anterolateral Hypokinetic Base-Posterolateral Normal Base-Inferior Normal Base-Inferoseptal Normal Mid-Anteroseptal Normal Mid-Anterior Normal Mid-Anterolateral Hypokinetic Mid-Posterolateral Hypokinetic Mid-Inferior Normal Mid-Inferoseptal Normal [place]-Septal Normal [place]-Anterior Normal [place]-Lateral Normal [place]-Inferior Normal [place]-Tip Normal Chambers Value Units (Range) IVSd 2D 1.2 cm LVIDd 2D 4.8 cm PWd 2D 1.4 cm LVIDs 2D 2.9 cm LVFS 2D 40 % LA area 20 cm2 (<21) RA area 17 cm2 (<18) Ao root 3.1 cm (2.1 to 3.6) Asc Ao 3.2 cm (2 to 3.5) Mitral Valve Value Units (Range) E peak 0.6 m/sec E/A ratio 0.8 ratio MVDT 232 msec E1 0.1 m/sec E/E1 6 ratio Tricuspid/Pulmonic Valves Value Units (Range) TR peak lamont 2.5 m/sec RAP 3 mmHg RVSP/PASP 28 mmHg This report has been electronically sign ed by: _ Serge Pizarro M.D. 07/23/2011 15:51 :41 Images reviewed and interpretation verif ied [facility] Cardiac Ultrasound Laboratory Malcolm López MD ECHO ORDERABLES Performing Organization Address City/State/ZIP Code Phon e Number [facility] EKG 12-LEAD Is a rhythm strip needed?: No; Reason for Exam:: Acute ID (02/09/2011 10:42 AM EDT) [facility] Method Time Signature Ventricular rate 66 BPM MUSE SYSTEM Atrial Rate 66 BPM MUSE SYSTEM P-R Interval 160 ms MUSE SYSTEM QRS Duration 104 ms MUSE SYSTEM Q-T Interval 406 ms MUSE SYSTEM QTC Calculated 425 ms MUSE SYSTEM (Bezet) Calculated P [place] 55 degrees MUSE SYSTEM Calculated R [place] -25 degrees MUSE SYSTEM Calculated T [place] 39 degrees MUSE SYSTEM INTERPRETATION Normal sinus rhythm MUSE SYSTEM Normal ECG When compared with ECG of 08-FEB-2011 21:00, (unconfirmed) Left posterior fascicular block is no longer Present Confirmed by Kvng Pineda, Howard Bocanegra ([id number]) on 02/09/2011 1:08:20 PM Specimen Anatomical Collection Method Collection Time Receive d Time (Source) Location / / Volume Laterality 02/09/2011 10:42 02/09/2011 1:08 AM EDT PM EDT Baldemar Jacome II, MD ECG ORDERABLES Performing Organization Address City/State/ZIP Code Phon e Number MUSE SYSTEM (ABNORMAL) APTT (02/09/2011 10:24 AM EDT) P athologist Signature PTT 114 (H) 25 - 37 sec CERNER MILLNew Breed GamesIUM Comment: Recommended therapeutic PTT range for fu ll dose unfractionated heparin is 80-114 seconds. Specimen Anatomical Collection Method Collection Time Receive d Time (Source) Location / / Volume Laterality Blood specimen 02/09/2011 10:24 1 (specimen) AM EDT 10:43 AM EDT Malcolm López MD HEMATOLOGY ORDERABLES Performing Organization Address City/State/[place] [address] CERNER [employer]NIUM (ABNORMAL) Cardiac Enzymes (02/09/2011 10:24 AM EDT) P athologist Signature Troponin-T 0.89 (H) <=0.03 CERNER ng/mL [employer] Comment: 0.03 ng/mL: Represents the 99th percenti le upper reference limit for normals. >0.03 ng/mL: Elevated cardiac troponin T level indicative of myocardial damage. Diagnosis of acute, evolving or recent M I requires a typical rise and gradual fall of cTnT with at least ONE of the fo llowing: a) Ischemic symptoms b) Development of pathologic Q waves on the ECG c) ECG changes indicative of eschemia (S -T segment elevation/depression) d) Coronary artery intervention Serial bloods should be obtained for pineda ting on admission, at 6 to 9 hrs and again at 12 to 24 hrs if earlier samples are negative and the clinical index of suspicion is high. Reference: [Myocardial infarction redefined a consensus document of the Joint [place] [employer] of Cardiology/[place] [employer] Committee for the redefinition of myocardial infarction. Journal of the [place] [employer] of Cardi ology 2000; 36: 959-969] CK, Total 309 (H) 0 - 200 unit/L CERNER MILLENNI UM Specimen Anatomical Collection Method Collection Time Receive d Time (Source) Location / / Volume Laterality Blood specimen 02/09/2011 10:24 1 (specimen) AM EDT 10:43 AM EDT Malcolm López MD CHEMISTRY ORDERABLES Performing Organization Address City/[facility]/ZIP [facility] Phon e Number [address] CERNER MILLENNIUM POCT GLUCOSE LAB USE ONLY (02/09/2011 8:09 AM EDT) athologist Signature POC Glucose 150 60 - 199 CERNER mg/dL [facility] Comment: Supplemental ranges: <110 mg/dL before meals <200 mg/dL all other times of the day Specimen Anatomical Collection Method Collection Time Receive d Time (Source) Location / / Volume Laterality Blood specimen 02/09/2011 8:09 AM 011 8:09 (specimen) EDT AM EDT Baldemar Jacome II, MD POINT OF CARE TEST ORDERABLE S Performing Organization Address City/[facility] [place] [address] CERNER MILLENNIUM (ABNORMAL) Cardiac Enzymes (02/09/2011 5:56 AM EDT) athologist Signature Troponin-T 0.92 (H) <=0.03 CERNER ng/mL [facility] Comment: 0.03 ng/mL: Represents the 99th percenti le upper reference limit for normals. >0.03 ng/mL: Elevated cardiac troponin T level indicative of myocardial damage. Diagnosis of acute, evolving or recent M I requires a typical rise and gradual fall of cTnT with at least ONE of the fo llowing: a) Ischemic symptoms b) Development of pathologic Q waves on the ECG c) ECG changes indicative of eschemia (S -T segment elevation/depression) d) Coronary artery intervention Serial bloods should be obtained for pineda ting on admission, at 6 to 9 hrs and again at 12 to 24 hrs if earlier samples are negative and the clinical index of suspicion is high. Reference: [Myocardial infarction redefined a consensus document of the Joint [place] Society of Cardiology/[place] [employer] Committee for the redefinition of myocardial infarction. Journal of the [place] College of Cardi ology 2000; 36: 959-969] CK, Total 357 (H) 0 - 200 unit/L CERNER MILLENNI UM Specimen Anatomical Collection Method Collection Time Receive d Time (Source) Location / / Volume Laterality Blood specimen 02/09/2011 5:56 AM 011 6:13 (specimen) EDT AM EDT Malcolm López MD CHEMISTRY ORDERABLES Performing Organization Address City/State/ZIP Code Phon e Number [place] [phone] CERNER MILLENNIUM (ABNORMAL) REFLEX LAB-A-DIFF (02/09/2011 2:49 AM EDT) [facility] gist Method Time Signature Neutrophils % 72.9 (H) 34.0 - CERNER 71.0 % MILLENNIUM Neutr Abs (ANC) 6.52 (H) 1.50 - CERNER 6.30 MILLENNIUM x10(3)/mc L Lymphocytes % 16.5 (L) 19.0 - CERNER 53.0 % MILLENNIUM Lymphocytes Abs 1.5 1.0 - 3.6 CERNER x10(3)/mc MILLENNIUM L Monocytes % 9.2 4.0 - CERNER 13.0 % MILLENNIUM Monocyte Abs 0.8 0.2 - 1.0 CERNER x10(3)/mc MILLENNIUM L Eosinophils % 0.9 0.0 - 7.0 CERNER % MILLENNIUM Eosinophils Abs 0.1 0.0 - 0.5 CERNER x10(3)/mc MILLENNIUM L Basophils % 0.1 0.0 - 2.0 CERNER % MILLENNIUM Basophils Abs 0.0 0.0 - 0.2 CERNER x10(3)/mc MILLENNIUM L Immature Gran % 0.40 0.00 - CERNER 0.66 % MILLENNIUM Comment: Immature granulocytes(IG's)percentage an d absolute count will include metamyelocytes, myelocytes, and promyelo cytes. Blood smears from CBCs yielding IG's will be scanned manually for concor dance. If this scan disagrees with the automated IG or if promyelocytes are not ed, a manual differential will be performed. Aide Gran Abs 0.04 0.00 - 0.05 x10(3)/mcL CER NER MILLENNIUM Specimen Anatomical Collection Method Collection Time Receive d Time (Source) Location / / Volume Laterality Blood specimen 02/09/2011 2:49 AM 011 2:55 (specimen) EDT AM EDT Malcolm López MD HEMATOLOGY ORDERABLES Performing Organization Address City/State/[place] [address] CERNER MILLENNIUM CBC (with Diff) once daily (02/09/2011 2:49 AM EDT) P athologist Signature WBC 9.0 4.0 - 10.0 CERNER x10(3)/mcL MILLENNIUM RBC 5.14 4.63 - 6.08 CERNER x10(6)/mcL MILLENNIUM Hemoglobin 15.2 13.7 - 17.5 CERNER gm/dL MILLENNIUM Hematocrit 44.2 40.0 - 51.0 CERNER % MILLENNIUM MCV 86.0 79.0 - 92.0 CERNER fL MILLENNIUM MCH 29.6 25.6 - 32.2 CERNER pg MILLENNIUM MCHC 34.4 32.0 - 36.5 CERNER gm/dL MILLENNIUM Platelets 197 145 - 370 CERNER x10(3)/mcL MILLENNIUM RDWSD 43.6 35.0 - 46.0 CERNER fL MILLENNIUM RDWCV 14.0 10.9 - 14.4 CERNER % MILLENNIUM MPV 9.8 9.0 - 12.0 CERNER fL MILLENNIUM Specimen Anatomical Collection Method Collection Time Receive d Time (Source) Location / / Volume Laterality Blood specimen 02/09/2011 2:49 AM 011 2:55 (specimen) EDT AM EDT Malcolm López MD HEMATOLOGY ORDERABLES Performing Organization Address City/[facility]/ZIP Code Phon e Number [place] [address] [facility] (ABNORMAL) APTT (02/09/2011 2:49 AM EDT) athologist Signature PTT 93 (H) 25 - 37 sec [facility] Comment: Recommended therapeutic PTT range for fu ll dose unfractionated heparin is 80-114 seconds. Specimen Anatomical Collection Method Collection Time Receive d Time (Source) Location / / Volume Laterality Blood specimen 02/09/2011 2:49 AM 011 2:55 (specimen) EDT AM EDT Malcolm López MD HEMATOLOGY ORDERABLES Performing Organization Address City/[facility] Code Phon e Number [place] [address] [facility] (ABNORMAL) Glucose, fasting (02/09/2011 2:49 AM EDT) athologist Signature Glucose 122 (H) 65 - 99 [facility] Fasting mg/dL [facility] Comment: ?Fasting* Glucose Interpretive C riteria Normal ?65-99 mg/dL Impaired Fasting glucose ?100-125 mg/dL Consistent with Diabetes Mellitus ? >or= 126 mg/dL *Fasting is defined as no caloric intake for at least 8 hours In the absence of unequivocal hypergly cemia a plasma glucose value of >or= 126 mg/dL should be repeated on a subseq uent day. Diagnosis and Classification of Diabetes Mellitus, Position Statement from the [place] Diabetes Association. ??Diabete s Care, Volume 33, Supplement 1, Oct 2009 Specimen Anatomical Collection Method Collection Time Receive d Time (Source) Location / / Volume Laterality Blood specimen 02/09/2011 2:49 AM 011 2:55 (specimen) EDT AM EDT Malcolm López MD CHEMISTRY ORDERABLES Performing Organization Address City/[facility]/ZIP Code Phon e Erwin OCONNELL [address] [facility] (ABNORMAL) LDL cholesterol, direct (02/09/2011 2:49 AM EDT) P athologist Signature LDL Chol 120 (H) <=99 mg/dL [facility] Direct [facility] Comment: The National Cholesterol Education Progr am (NCEP) has set the following guidelines for LDL Cholesterol: Reference range: ?? Optimal: ?<100 mg/dL ?? Near Optimal/Above Optimal: ?? 100-1 29 mg/dL ?? Borderline high: ?130-159 mg/dL ?? High: ? 160-189 mg/dL ?? Very high: ?>sq=057 mg/dL [facility] 2001: 285(55):2475-4659 Specimen Anatomical Collection Method Collection Time Receive d Time (Source) Location / / Volume Laterality Blood specimen 02/09/2011 2:49 AM 011 2:55 (specimen) EDT AM EDT Malcolm López MD CHEMISTRY ORDERABLES Performing Organization Address City/State/[place] [address] [facility] [address] [facility] (ABNORMAL) Hemoglobin A1c (02/09/2011 2:49 AM EDT) Patholo gist Method Time Signature Hemoglobin A1C 6.6 (H) 4.3 - 6.1 [facility] % [facility] Est Avg Gluc See note mg/dL [facility] Comment: Estimated Average Glucose not appropriat e for patients over 70 years of age. eAG equivalents for HbA1c percentages: HbA1c(%) ?eAG(mg/dL) 6.0 ?126 6.5 ?140 7.0 ?154 7.5 ?169 8.0 ?183 8.5 ?197 9.0 ?212 9.5 ?226 10.0 ? 240 Limitations: The eAG calculation has not been validated on women, individuals below 18 years old and above 70 years old, and individuals with hemoglobinopathies. Additional resources are available on e ADA website: ??http://professional.diabetes.org/gluc osecalculator.aspx Reference: Jasen BRISCOE, Kait J, Jaren R, et al. ??Tr anslating the A1C assay into estimated average glucose values. ??Diabetes Care 2008:31(8):0536-5202. Specimen Anatomical Collection Method Collection Time Receive d Time (Source) Location / / Volume Laterality Blood specimen 02/09/2011 2:49 AM 011 2:55 (specimen) EDT AM EDT Malcolm López MD CHEMISTRY ORDERABLES Performing Organization Address City/State/ZIP Code Phon e Number [place] [phone] [facility] (ABNORMAL) Lipid panel (fasting) (02/09/2011 2:49 AM EDT) athologist Signature Chol, Total 184 <=199 mg/dL [facility] Comment: Recommendations of the NCEP Adult Treatm ent Panel for the following risk cutoff thresholds for the [place] popul[place] n: Desirable: <200 mg/dL Borderline High: 200-239 mg/dL High: > or = 240 mg/dL Triglycerides 70 <=149 mg/dL [facility] Comment: Reference Range: Normal triglycerides: ??<150 mg/dL Borderline high: ??150-199 mg/dL High: ??200-499 mg/dL Very high: ??>kk=209 mg/dL [facility] 2001; 285(19):8991-4510 HDL 51 >=40 mg/dL [facility] Comment: Reference range: ??Low HDL: ?? < 40 mg/dL ??Normal: ?40-60 mg/dL ??Desirable: > 60 mg/dL [facility] 2001; 285(19):8708-7709 LDL Cholesterol 119 (H) <=99 mg/dL [facility] Comment: Reference range: ?? Optimal: ?<100 mg/dL ?? Near Optimal/Above Optimal: ?? 100-1 29 mg/dL ?? Borderline high: ?130-159 mg/dL ?? High: ? 160-189 mg/dL ?? Very high: ?>bg=078 mg/dL [facility] 2001: 285(19):5703-9950 Chol/HDL Ratio 3.6 ratio [facility] Comment: A Cholesterol to HDL ratio below 4:1 is desirable. ??Studies suggest that increased CAD risk occurs at ratios abov e 5 for females and above 6 for men. ? [place] Heart Association ??(htt p://www.americanheart.org) ? Urszula Int Med, 1994; 121:641 ? AM J Med, 1998; 105(1A):48S Specimen Anatomical Collection Method Collection Time Receive d Time (Source) Location / / Volume Laterality Blood specimen 02/09/2011 2:49 AM 011 2:55 (specimen) EDT AM EDT Malcolm López MD CHEMISTRY ORDERABLES Performing Organization Address City/State/[place] [address] [facility] XR chest routine PA & lateral (02/08/2011 9:24 PM EDT) Anatomical Region Laterality Modality Chest N/A Radiographic Imaging Specimen (Source) Anatomical Collection Method Collection Time Re ceived Time Location / / Volume Laterality 02/08/2011 9:24 PM EDT Impressions 02/09/2011 3:59 PM EDT IMPRESSION: No active cardiopulmonary pathology. Narrative 02/09/2011 3:59 PM EDT TWO-VIEW CHEST: INDICATION: ??Chest pain. ?? TECHNIQUE: ??PA and lateral views of the chest. COMPARISON: ??No priors for comparison. ?? FINDINGS: ??The lungs are clear. The car diomediastinal silhouette, luis, pulmonary vessels, and pleura are within normal limits. Degenerative changes throughout the thoracic spine are noted. ?? Procedure Note Monique Sinha MD - 02/09/2011Formatt ing of this note might be different from the original. TWO-VIEW CHEST: INDICATION: Chest pain. TECHNIQUE: PA and lateral views of the c hest. COMPARISON: No priors for comparison. FINDINGS: The lungs are clear. The cardi omediastinal silhouette, luis, pulmonary vessels, and pleura are within normal limits. Degenerative changes throughout the thoracic spine are noted. IMPRESSION IMPRESSION: No active cardiopulmonary pathology. Malcolm López MD IMG DX ORDERABLES (ABNORMAL) REFLEX LAB-A-DIFF (02/08/2011 9:13 PM EDT) [facility] Method Time Signature Neutrophils % 78.0 (H) 34.0 - CERNER 71.0 % MILLENNIUM Neutr Abs (ANC) 7.98 (H) 1.50 - CERNER 6.30 MILLENNIUM x10(3)/mc L Lymphocytes % 12.7 (L) 19.0 - CERNER 53.0 % MILLENNIUM Lymphocytes Abs 1.3 1.0 - 3.6 CERNER x10(3)/mc MILLENNIUM L Monocytes % 8.4 4.0 - CERNER 13.0 % MILLENNIUM Monocyte Abs 0.9 0.2 - 1.0 CERNER x10(3)/mc MILLENNIUM L Eosinophils % 0.4 0.0 - 7.0 CERNER % MILLENNIUM Eosinophils Abs 0.0 0.0 - 0.5 CERNER x10(3)/mc MILLENNIUM L Basophils % 0.2 0.0 - 2.0 CERNER % MILLENNIUM Basophils Abs 0.0 0.0 - 0.2 CERNER x10(3)/mc MILLENNIUM L Immature Gran % 0.30 0.00 - CERNER 0.66 % MILLENNIUM Comment: Immature granulocytes(IG's)percentage an d absolute count will include metamyelocytes, myelocytes, and promyelo cytes. Blood smears from CBCs yielding IG's will be scanned manually for concor dance. If this scan disagrees with the automated IG or if promyelocytes are not ed, a manual differential will be performed. Aide Gran Abs 0.03 0.00 - 0.05 x10(3)/mcL CER NER MILLENNIUM Specimen Anatomical Collection Method Collection Time Receive d Time (Source) Location / / Volume Laterality Blood specimen 02/08/2011 9:13 PM 011 9:18 (specimen) EDT PM EDT Malcolm López MD HEMATOLOGY ORDERABLES Performing Organization Address City/State/ZIP Code Phon e Number [place] [phone] CERNER MILLENNIUM (ABNORMAL) CBC (with Diff) once daily (02/08/2011 9:13 PM EDT) P athologist Signature WBC 10.2 (H) 4.0 - 10.0 CERNER x10(3)/mcL MILLENNIUM RBC 5.48 4.63 - CERNER 6.08 MILLENNIUM x10(6)/mcL Hemoglobin 16.3 13.7 - CERNER 17.5 gm/dL MILLENNIUM Hematocrit 47.4 40.0 - CERNER 51.0 % MILLENNIUM MCV 86.5 79.0 - CERNER 92.0 fL MILLENNIUM MCH 29.7 25.6 - CERNER 32.2 pg MILLENNIUM MCHC 34.4 32.0 - CERNER 36.5 gm/dL MILLENNIUM Platelets 207 145 - 370 CERNER x10(3)/mcL MILLENNIUM RDWSD 43.7 35.0 - CERNER 46.0 fL MILLENNIUM RDWCV 14.0 10.9 - CERNER 14.4 % MILLENNIUM MPV 9.7 9.0 - 12.0 CERNER fL MILLENNIUM Specimen Anatomical Collection Method Collection Time Receive d Time (Source) Location / / Volume Laterality Blood specimen 02/08/2011 9:13 PM 011 9:18 (specimen) EDT PM EDT Malcolm López MD HEMATOLOGY ORDERABLES Performing Organization Address City/[facility] [place] [address] CERNER MILLENNIUM (ABNORMAL) Cardiac Enzymes (02/08/2011 9:13 PM EDT) P athologist Signature Troponin-T 0.79 (H) <=0.03 CERNER ng/mL [facility] Comment: 0.03 ng/mL: Represents the 99th percenti le upper reference limit for normals. >0.03 ng/mL: Elevated cardiac troponin T level indicative of myocardial damage. Diagnosis of acute, evolving or recent M I requires a typical rise and gradual fall of cTnT with at least ONE of the fo llowing: a) Ischemic symptoms b) Development of pathologic Q waves on the ECG c) ECG changes indicative of eschemia (S -T segment elevation/depression) d) Coronary artery intervention Serial bloods should be obtained for pineda ting on admission, at 6 to 9 hrs and again at 12 to 24 hrs if earlier samples are negative and the clinical index of suspicion is high. Reference: [Myocardial infarction redefined a consensus document of the Joint [place] Society of Cardiology/[place] [employer] Cardiology Committee for the redefinition of myocardial infarction. Journal of the [place] College of Cardi ology 2000; 36: 959-969] CK, Total 537 (H) 0 - 200 unit/L [facility] UM Specimen Anatomical Collection Method Collection Time Receive d Time (Source) Location / / Volume Laterality Blood specimen 02/08/2011 9:13 PM 011 9:18 (specimen) EDT PM EDT Malcolm López MD CHEMISTRY ORDERABLES Performing Organization Address City/[facility]/[place] [address] CERNER MILLENNIUM (ABNORMAL) APTT (02/08/2011 9:13 PM EDT) P athologist Signature PTT 67 (H) 25 - 37 sec CERNER MILLENNIUM Comment: Recommended therapeutic PTT range for fu ll dose unfractionated heparin is 80-114 seconds. Specimen Anatomical Collection Method Collection Time Receive d Time (Source) Location / / Volume Laterality Blood specimen 02/08/2011 9:13 PM 011 9:18 (specimen) EDT PM EDT Malcolm López MD HEMATOLOGY ORDERABLES Performing Organization Address [facility]/ZIP [facility] [place] [address] CERNER MILLENNIUM Protime-INR (02/08/2011 9:13 PM EDT) P athologist Signature PT 14.2 12.3 - 14.7 CERNER sec MILLENNIUM Comment: [facility] Transfusion Committee Guidelines: I NR less than 2.0, PTT less than OR equal to 43.5 seconds, or Fibrinogen gre ater than or equal to 100 mg/dl indicate adequate procoagulant activity for hemostasis in patients without underlying bleeding disorders. INR 1.1 0.9 - 1.1 CERNER MILLENNIUM Specimen Anatomical Collection Method Collection Time Receive d Time (Source) Location / / Volume Laterality Blood specimen 02/08/2011 9:13 PM 011 9:18 (specimen) EDT PM EDT Malcolm López MD HEMATOLOGY ORDERABLES Performing Organization Address City/[facility]/[place] [address] CERNER MILLENNIUM (ABNORMAL) Hepatic function panel (02/08/2011 9:13 PM EDT) P athologist Signature Total Protein 7.4 6.4 - 8.3 CERNER gm/dL MILLENNIUM Albumin 4.2 3.2 - 5.2 CERNER gm/dL MILLENNIUM AST 86 (H) 0 - 39 CERNER unit/L MILLENNIUM ALT 30 0 - 55 CERNER unit/L MILLENNIUM Alk Phos 80 40 - 120 CERNER unit/L MILLENNIUM Total 0.5 0.2 - 1.3 CERNER Bilirubin mg/dL MILLENNIUM Bili, Direct 0.1 0.0 - 0.3 CERNER mg/dL MILLENNIUM Specimen Anatomical Collection Method Collection Time Receive d Time (Source) Location / / Volume Laterality Blood specimen 02/08/2011 9:13 PM 011 9:18 (specimen) EDT PM EDT Malcolm López MD CHEMISTRY ORDERABLES Performing Organization Address City/[facility]/[place] [address] CERNER MILLENNIUM (ABNORMAL) Brain natriuretic peptide (02/08/2011 9:13 PM EDT) P athologist Signature ProBNP 668 (H) <=125 pg/mL CERNER MILLENNIUM Specimen Anatomical Collection Method Collection Time Receive d Time (Source) Location / / Volume Laterality Blood specimen 02/08/2011 9:13 PM 011 9:18 (specimen) EDT PM EDT Malcolm López MD CHEMISTRY ORDERABLES Performing Organization Address City/[facility]/[place] [address] CERNER MILLENNIUM TSH (02/08/2011 9:13 PM EDT) P athologist Signature TSH 2.43 0.27 - 4.20 CERNER mcIU/mL MILLENNIUM Specimen Anatomical Collection Method Collection Time Receive d Time (Source) Location / / Volume Laterality Blood specimen 02/08/2011 9:13 PM 011 9:18 (specimen) EDT PM EDT Malcolm López MD CHEMISTRY ORDERABLES Performing Organization Address City/[facility]/[place] [address] CERNER MILLENNIUM Phosphorus (02/08/2011 9:13 PM EDT) P athologist Signature Phosphorus 3.6 2.5 - 4.5 CERNER mg/dL MILLENNIUM Specimen Anatomical Collection Method Collection Time Receive d Time (Source) Location / / Volume Laterality Blood specimen 02/08/2011 9:13 PM 011 9:18 (specimen) EDT PM EDT Malcolm López MD CHEMISTRY ORDERABLES Performing Organization Address City/[facility]/[place] [address] CERNER MILLENNIUM Magnesium (02/08/2011 9:13 PM EDT) athologist Signature Magnesium 0.84 0.69 - 1.07 CERNER mmol/L MILLENNIUM Specimen Anatomical Collection Method Collection Time Receive d Time (Source) Location / / Volume Laterality Blood specimen 02/08/2011 9:13 PM 011 9:18 (specimen) EDT PM EDT Malcolm López MD CHEMISTRY ORDERABLES Performing Organization Address City/[facility] [place] [address] [facility] Calcium (02/08/2011 9:13 PM EDT) athologist Signature Calcium 9.2 8.5 - 10.5 CERNER mg/dL MILLENNIUM Specimen Anatomical Collection Method Collection Time Receive d Time (Source) Location / / Volume Laterality Blood specimen 02/08/2011 9:13 PM 011 9:18 (specimen) EDT PM EDT Malcolm López MD CHEMISTRY ORDERABLES Performing Organization Address City/[facility] [place] [address] CERNER MILLENNIUM Basic metabolic panel (02/08/2011 9:13 PM EDT) athologist Signature Glucose Lvl 162 60 - 199 CERNER mg/dL [facility] Comment: Diabetes: >=200 mg/dL plus symp toms BUN 13 10 - 20 mg/dL CERNER MILLENNIU M Creatinine 1.00 0.80 - 1.50 mg/dL CERNER MILL ENNIUM Sodium 138 135 - 145 mmol/L CERNER JOHN NI[facility] Potassium 4.0 3.5 - 5.0 mmol/L CERNER JOHN NI[facility] Comment: Please note: ??Patients with WBC >100,00 0 may have falsely elevated Potassium levels. ??For accurate Potassium quantif ication in these patients send serum separator tube (gold top) for subsequent determinations. ??Contact the Clinical Chemistry Laboratory if there are any qu estions. Chloride 103 98 - 107 mmol/L CERNER MILLENN IUM CO2 27 22 - 31 mmol/L CERNER MILLENNI UM Anion Gap 8 5 - 15 mmol/L CERNER MILLENNIU M Calcium 9.2 8.5 - 10.5 mg/dL CERNER JOHN NIUM Estimated GFR >60 >=60 CERNER MILLLINDSEYIU M Comment: The National Kidney Disease Education Pr ogram (NKDEP) has recommended all laboratories report estimated GFR (eGFR) along with plasma creatinine measurements to assist you with recognit ion of early kidney disease. Caveats: ??Plasma creatinine should be a t steady-state (unchanged within the past week). For patient s multiply eGFR by 1.2.MDRD equation has not been validated for pediatric pat ients and is only valid for patients with age >= 18 years. At present, NKDEP does NOT recommend usi ng the MDRD equation for drug dosing purposes and pharmacists should continue to use their current dosing methods. In addition, numerical eGFR values great er than 60 ml/min/1.73 square meters should be treated as > 60, and not an ex act number due to greater inaccuracies at these higher values. Per NKDEP, they classify normal renal function as any GFR >60ml/min/1.73 square meters; chronic kidney disease wh en GFR <60, and renal failure when GFR <15. ??This calculation may not be valid for patients with atypical muscle mass (very lean or obese), acute renal failur e, and in patients with diabetic kidney disease. References: http://nkdep.nih.gov/resources/NKDEP_Sug gestn4Labs_0606_508.pdf http://www.kidney.org/professionals/kls/ pdf/faq_gfr.pdf Specimen Anatomical Collection Method Collection Time Receive d Time (Source) Location / / Volume Laterality Blood specimen 02/08/2011 9:13 PM 011 9:18 (specimen) EDT PM EDT Malcolm López MD CHEMISTRY ORDERABLES Performing Organization Address City/State/ZIP Code Phon e Number [place] [phone] CERNER MILLENNIUM POCT GLUCOSE LAB USE ONLY (02/08/2011 9:07 PM EDT) athologist Signature POC Glucose 196 60 - 199 CERNER mg/dL [facility] Comment: Supplemental ranges: <110 mg/dL before meals <200 mg/dL all other times of the day Specimen Anatomical Collection Method Collection Time Receive d Time (Source) Location / / Volume Laterality Blood specimen 02/08/2011 9:07 PM 011 9:07 (specimen) EDT PM EDT Baldemar Jacome II, MD POINT OF CARE TEST ORDERABLE S Performing Organization Address City/State/ZIP Code Phon e Number [place] [phone] [facility] E[facility] 12-LEAD Is a rhythm strip needed?: No; Reason for Exam:: Chest Pain (02/08/2011 9:00 PM EDT) [facility] gist Method Time Signature Ventricular rate 79 BPM MUSE SYSTEM Atrial Rate 79 BPM MUSE SYSTEM P-R Interval 150 ms MUSE SYSTEM QRS Duration 102 ms MUSE SYSTEM Q-T Interval 396 ms MUSE SYSTEM QTC Calculated 454 ms MUSE SYSTEM (Bezet) Calculated P [place] 5 degrees MUSE SYSTEM Calculated R [place] 110 degrees MUSE SYSTEM Calculated T [place] 32 degrees MUSE SYSTEM INTERPRETATION Normal sinus rhythm MUSE SYSTEM Left posterior fascicular block Abnormal ECG No previous ECGs available Confirmed by Kvng Pineda Mandeep S ([id number]) on 02/09/2011 12:58:2 6 PM Specimen Anatomical Collection Method Collection Time Receive d Time (Source) Location / / Volume Laterality 02/08/2011 9:00 PM 1 EDT 12:58 PM EDT Malcolm López MD ECG ORDERABLES Performing Organization Address City/State/ZIP Code Phon e Number MUSE SYSTEM documented in this encounter Visit Diagnoses Not on filedocumented in this encounter Administered Medications Inactive Administered Medications - up to 3 most recent administrations Medication Order MAR Action Action Date Dose Rate Site bivalirudin (ANGIOMAX) New Bag 02/09/2011 3:25 PM 1.75 mg/kg/hr 29 .9 mL/hr 250 mg in sodium chloride EDT 0.9% 50 mL infusion (TISSUE PACKER) CONTINUOUS PRN, Starting on Wed02/09/11 at 1525, Until Wed02/09/11 at 1606, Cath (Intra-Procedure), Routine bivalirudin (ANGIOMAX) injection Given 02/09/2011 3:22 PM EDT 64.5 mg ONCE PRN, 1 dose, Starting on Wed02/09/11 at 1522, Until Wed02/09/11 at 1522, Intra-Operative (Intra-Procedure), Routine niCARdipine (CARDENE) in sodium chloride Given 02/09/2011 3:59 P M EDT 500 mcg 0.9% injection ONCE PRN, 1 dose, Starting on Wed02/09/11 at 1559, Until Wed02/09/11 at 1559, Cath (Intra-Procedure), Routine niCARdipine (CARDENE) in sodium chloride Given 02/09/2011 4:00 P M EDT 200 mcg 0.9% injection ONCE PRN, 1 dose, Starting on Wed02/09/11 at 1600, Until Wed02/09/11 at 1600, Cath (Intra-Procedure), Routine niCARdipine (CARDENE) in sodium chloride Given 02/09/2011 4:01 P M EDT 100 mcg 0.9% injection ONCE PRN, 1 dose, Starting on Wed02/09/11 at 1601, Until Wed02/09/11 at 1601, Cath (Intra-Procedure), Routine documented in this encounter Active and Recently Administered Medications Times are shown in EDT. Scheduled Medication Order 02/08/2011 02/09/2011 02/10/2011 amlodipine (NORVASC) tablet 5 mg (CANCELED) 828 (Given - Provider: Rosalba Mayfield) 0900 (Given - Provider: Ramya Horner, GRACE) 5 mg, Oral, DAILY, First dose on 02/09 at 0900, Until Discontinued, Routine aspirin tablet 325 mg 2133 (Given - Provider: Tammie Lizarraga) 0900 (Given - Provider: Ramya Horner, GRACE) 325 mg, Oral, DAILY, First dose on Sun at 2115, Until Discontinued, Routine atorvastatin (LIPITOR) tablet 40 mg (CANCELED) 1846 (Given - Provider: Rosalba Mayfield) 40 mg, Oral, DAILY WITH DINNER, First do se on Wed02/09/11 at 1700, Until Discontinued, Routine clopidogrel (PLAVIX) tablet 300 mg (COMPLETED) 2133 (G iven - Provider: Meagan Hinds RN) 300 mg, Oral, ONCE, 1 dose, 02/08/11 at 2115, Pre-Admissio n Testing, Routine clopidogrel (PLAVIX) tablet 300 mg (COMPLETED) 0010 (G iven - Provider: Meagan Hinds RN) 300 mg, Oral, ONCE, 1 dose, On 02/08/11 at 2315, Routine clopidogrel (PLAVIX) tablet 75 mg 0900 (Given - Provider: Ramya Horner, GRACE) 75 mg, Oral, DAILY, First dose on 12/19 at 0900, Until Discontinued, Routine diaZEPam (VALIUM) tablet 5 mg (COMPLETED) 1350 (Given - Provider: Rosalba Mayfield) 5 mg, Oral, ONCE, 1 dose, Wed02/09/11 at 1415, Cath (Pre-Procedur e), Routine diphenhydrAMINE (BENDARYL) tablet 25 mg (COMPLETED) 1350 (Given - Provider: Rosalba Mayfield) 25 mg, Oral, ONCE, 1 dose, Wed02/09/11 at 1415, Cath (Pre-Procedu re), Routine famotidine (PEPCID) tablet 20 mg (CANCELED) 2213 (Give n - Provider: Meagan Hinds RN) 0829 (Given - Provider: Rosalba Mayfield) 2100 (Given - Provider: Francoise Sanhces, GRACE) 0900 (Given - Provider: Ramya Horner, GRACE) 20 mg, Oral, 2 TIMES DAILY, First dose o n 02/08/11 at 2115, Until Discontinued, Routine insulin aspart (novoLOG) PEN injection 2-8 Units (CANC ELED) 2209 (Given - Provider: Meagan Hinds RN) 0829 (Given - Provider: Rosalba Mayfield) 1243 (Not Given - Provider: Rosalba Mayfield - Reason: Order parameters not met)1630 (Not Given - Provider: Rosalba Mayfield - Reason: Order parameters not met)2100 (Given - Provider: Francoise Sanches, RN) 0730 (Not Given - Provider: Ramya Horner RN - Reason: Patient/family refused)1130 (Not Given - Provider: Ramya Horner RN - Reason: Order parameters not met) 2-8 Units, Subcutaneous, 4 TIMES DAILY B EFORE MEALS & NIGHTLY, First dose on 02/08/11 at 2115, Until Discontinued, CORRECTION BOLUS Moderate BG 140 - 160 Give 2 units BG 161 - 200 Give 4 units BG 201 - 240 Give 6 units BG greater th an 240, give 8 units every 2 hours until BG less than 240 (no more than three times) & call for new basal insulin orders , Routine lisinopril (PRINIVIL;ZESTRIL) tablet 20 mg (CANCELED) 0830 (Given - Provider: Rosalba Mayfield) 0900 (Given - Provider: Ramya Horner RN) 20 mg, Oral, DAILY, First dose on 11/21 at 0900, Until Discontinued, Routine metoprolol tartrate (LOPRESSOR) tablet 12.5 mg (CANCELED) 0018 (Given - Provider: Meagan Hinds RN)0612 (Given - Provider: Meagan Hinds RN)1345 (Given - Provider: Rosalba Mayfield)1847 (Given - Provider: Rosalba Mayfield) 0000 (Given - Provider: Francoise Sanches, GRACE)0600 (Given - Provider: Francoise Sanches, GRACE)1200 (Due) 12.5 mg, Oral, EVERY 6 HOURS SCHEDULED, First dose on Wed02/09/11 at 0000, Until Discontinued, Hold for SBP less than 100 mmHG or HR less than 60 beats per minute, Routine Continuous Medication Order 02/08/2011 02/09/2011 02/10/2011 heparin 67760 units in dextrose 5% 500 mL infusion (CA NCELED) 2114 (New Bag - Provider: Meagan Hinds RN)214 (Rate/Dose Change - Provider: Meagan Hinds RN) 0315 (Rate/Dose Verify - Provider: Meagan Hinds RN)1400 (Stopped - Provider: Rosalba Mayfield) 350-7,000 Units/hr = 7-140 mL/hr, Intrav enous, at 7-140 mL/hr, CONTINUOUS, Starting Wed02/08/11 at 2115, Until Wed02/10/11 at 0102, Patient Weight 85-89 kg Initial dose - 1,000 units/hr = 20 mL/hr PTT le ss than 60 sec - increase by 350 units/h r = 7 mL/hr PTT 60-79 sec- increase by 150 units/hr = 3 mL/hr PTT 80-114 sec - no change PTT 115-129 sec - decrease by 100 units/hr = 2 mL/hr PTT 130-145 sec - st op infusion for 30 min then decrease by 150 units/hr = 3 mL/hr PTT greater than 145 sec - stop infusion for 60 min then decrease by 250 units/hr = 5 mL/hr PTT greater than 145 sec X 2 - call house offic er See Bolus dosing guidance for aPTT values between 60-70 seconds under PRN medications , Pre-Admission Testing, Routine sodium chloride 0.9% infusion () 2114 (Canceled Entry - Provider: Meagan Hinds, GRACE) 0018 (New Bag - Provider: Meagan Hinds RN) 80 mL/hr, at 80 mL/hr, Intravenous, CONT INUOUS, Starting 02/08/11 at 2115, Until Wed02/09/11 at 0314, Pre-Admission Testing sodium chloride 0.9% infusion (CANCELED) 15 (New Bag - Provider: Rosalba Mayfield) 100 mL/hr, at 100 mL/hr, Intravenous, CO NTINUOUS, Starting 02/09/11 at 0915, Until Wed02/10/11 at 0102 sodium chloride 0.9% infusion () 1630 (New Bag - Provider: Nusrat Phelan RN) 100 mL/hr, at 100 mL/hr, Intravenous, CO NTINUOUS, Starting Wed02/09/11 at 1645, Until Wed02/10/11 at 0244 PRN Medication Order 02/08/2011 02/09/2011 02/10/2011 bivalirudin (ANGIOMAX) 250 mg in sodium chloride 0.9% 50 mL infusion (TISSUE PACKER) (CANCELED) 1525 (New Bag - Provider: Toyin Henley RN - Comment: gtt per PCI protocol)1530 (Canceled Entry - Provider: Kade Henley RN) CONTINUOUS PRN, Starting Wed02/09/11 at 1 525, Until Wed02/09/11 at 1606, Cath (Intra-Procedure), Routine bivalirudin (ANGIOMAX) injection (COMPLETED) 1522 (Given - Provider: Kade Henley RN - Comment: Bolus pre PCI) ONCE PRN, 1 dose, Starting Wed02/09/11 at 1522, Until Wed02/09/11 at 1522, Intra- operative, Routine niCARdipine (CARDENE) in sodium chloride 0.9% injection (COM PLETED) 1559 (Given - Provider: Serge Jhaveri MD) ONCE PRN, 1 dose, Starting Wed02/09/11 at 1559, Until Wed02/09/11 at 1559, Cath (Intra-Procedure), Routine niCARdipine (CARDENE) in sodium chloride 0.9% injection (COM PLETED) 1600 (Given - Provider: Serge Jhaveri MD) ONCE PRN, 1 dose, Starting Wed02/09/11 at 1600, Until Wed02/09/11 at 1600, Cath (Intra-Procedure), Routine niCARdipine (CARDENE) in sodium chloride 0.9% injection (COM PLETED) 1601 (Given - Provider: Serge Jhaveri MD) ONCE PRN, 1 dose, Starting Wed02/09/11 at 1601, Until Wed02/09/11 at 1601, Cath (Intra-Procedure), Routine nitroGLYcerin (NITROSTAT) SL tablet 0.4 mg 0.4 mg, Sublingual, EVERY 5 MIN PRN, Sta rting Wed02/08/11 at 2057, Until Wed02/10/11 at 1548, Chest pain, May repeat every 5 minutes for a total of three doses, Pre-Admission Testing, Routine perflutren lipid microspheres (DEFINITY) injection 0.8 mL (C OMPLETED) 1215 (Given - Provider: Mateo Rincon) 0.8 mL, Intravenous, IMG ONCE PRN, 1 dos e, Starting Wed02/09/11 at 1248, Until Wed02/09/11 at 1215, Other, for enhancement of sub-optimal echo images, Echo Lab, Routine No Frequency Medication Order 02/08/2011 02/09/2011 02/10/2011 heparin (porcine) 25,000 unit/500 mL infusion (COMPLET ED) 1900 (New Bag - Provider: Marlo Henriquez RN) 1 dose, Starting Wed02/08/11 at 1912, Unt il Wed02/08/11 at 1900, MARLO HENRIQUEZ: Cabinet Override documented in this encounter Care Teams Bobbin Presser Relationship Specialty Start Date End Date Angela Chavez MD PCP - General 09/02/[address] [place] [address] [id number] documented as of this encounter
--- OUTSIDE RECORDS SUMMARY | 2022-04-06 11:51 | XMS_ITS | Encounter Summary ---
:1940 Author Organization [facility] [place] [address] Care Team Providers Name Role Phone Angela Chavez MD Primary Care Provider Encounter Details Date Type Department Care Team Description 02/08/2011 - Hospital Intermediate Cardiac Baldemar Jacome Che st pain; 02/10/2011 Encounter Care Unit Yvonne Contreras II, MD Hyperlipidemia; [facility] Chest yolanda n, unspecified; [facility] Zamorano and unspecified hyperlipidemia; [facility] CARDIOLOGY DE PT. NSTEMI (non-ST elevated myocardial infar ction); [place] [address] [facility], [place], [place] [phone] (Work) [phone] Social History Tobacco Use Types Packs/Day Years [...] appointments: During 8am-5pm Wednesday through Wednesday call [phone] to speak with a nurse in the cardiology clinic All other times call [phone] and ask to speak to the teenage babysitter engineer operations and maintenance. Return to work: One week Driving: No driving for 48 hours after catheterization. Follow up Appointments: PCP Dr. Chavez Friday February 18, 2011 at 10:30am in [facility] Shipping And Receiving Operator Dr. Negron in [facility] You will get a letter about this appointment in the mail Home oxygen therapy: N/A Arrangements for VNA/home care: none AttachmentsThe following attachments cannot be sent through Care Everywhere. REDUCING HEART ATTACK RISK WITH DAILY MEDICINE: AFTER YOUR VISIT (IRAQI) documented in this encounter Medications at Time [...] Reason for Nutrition Intervention: Consult Diet Order: [facility] Appetite: good Food allergies: none Chewing/Swallowing difficulty: none Height: (cm) 172.7 Weight: (kg) 86.6 02/10/11 Wt hx: (kg) 86.8 02/08/11 BMI: 29.2 Vitamins/Minerals: none Education: [facility] dietary guidelines. Verbalized good understanding. Education material, [...] he is being discharged today. Nutrition Plan: Diet:[facility] Recommend Daily Multi Vitamins and calcium supplement. Encourage good po intake. Monitor weight. Support and encouragement provided. Nutrition services to follow weekly thru hospital course unless consulted in the interim. 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 I gave him the [facility]ure [facility] should he change his mind. Activity Summary: [...] Day Note Patient Name: Ken Gomes Service: AVIATION WARFARE SYSTEMS OPERATOR / PA Responsible Attending: Dr. Jacome Reason [...] PVCs Meds: Current facility-administered medications ordered in [facility] Medication Dose Route Frequency Provider Last Rate Last Dose ??? clopidogrel (PLAVIX) tablet 75 mg 75 mg Oral Daily Scott Wise MD Last Dose: 75 mg at 02/10/11 0900 ??? nitroGLYcerin (NITROSTAT) SL tablet 0.4 mg 0.4 mg Sublingual Q5 Min PRN Scott Wise MD ??? diaZEPam (VALIUM) tablet 5 mg 5 mg Oral Once [facility] MERA Clemons Last Dose: 5 mg at 02/09/11 1350 ??? diphenhydrAMINE (BENDARYL) tablet 25 mg 25 mg Oral Once [place] MERA Urias Last Dose: 25 mg at02/09/11 1350 ??? perflutren lipid microspheres (DEFINITY) injection 0.8 mL 0.8 mL Intravenous ONCE PRN Serge Pizarro MD Last Dose: 0.8 mL at 02/09/11 1215 ??? bivalirudin (ANGIOMAX) injection Once PRN eSrge Jhaveri MD Last Dose: 64.5 mg at [...] mL/hr Intravenous Continuous MERA Abreu 100 mL/hr (02/09/1115) Last Dose: 100 mL/hr at 02/09/11 0915 ??? DISCONTD: bivalirudin (ANGIOMAX) 250 mg in sodium chloride 0.9% 50 mL infusion (FLUID DESIGNER) Continuous PRN Serge Jhaveri MD 29.9 mL/hr (02/09/11 152) Last Dose: 1.75 mg/kg/hr at 02/09/11 1525 [...] PP Malcolm López MD ??? DISCONTD: heparin 14662 units in dextrose 5% 500 mL infusion 350-7,000 Units/hr Intravenous Continuous Malcolm López MD Last Dose: 1150 Units/hr at 02/09/11 7234 No current Epic-ordered outpatient prescriptions on file. 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 Jacome Reason [...] rhythm Meds: Current facility-administered medications ordered in [facility] Medication Dose Route Frequency Provider Last Rate [...] HEPARIN PP Malcolm López MD ??? heparin 56733 units in dextrose 5% 500 mL infusion [...] MD Last Dose: 12.5 mg at 02/09/11 0612 ??? atorvastatin (LIPITOR) tablet 40 mg 40 [...] Code Patient discussed with Dr. Jacome. Adriana Clemons PA Pager [phone] Cardiology Staff Addendum Patient Name: Ken Gomes Patient Admit Date: 02/08/2011 The patient was interviewed, examined and discussed in detail with Ms. Clemons. Have reviewed Ms. Clemons's note dated February 09, 2011 and agree [...] 0710 85.7 kg (188 lb 15 oz) 02/08/11 1940 86.8 kg (191 lb 5.8 oz) Evaluation/Plan: No complaints this AM. Trop 0.92. Cxr unremarkable. DP control adaquate. Continue IV heparin, beta nelly, ACEI, ASA, clopidogrel and statin. OCath possible PCI today. Otherwise as per Ms. Clemons. Baldemar Jacome MD documented in this encounter [...] with statin), Psoriasis, no cardiac history comesto [facility] from [facility] for evaluation of chest pain that started [...] to the ED after she returned from [place] in the early afternoon. Patient's ROS is unremarkable with some associated diaphoresis which he says he has had for years. Patient denies: SOB, palpitations, light-headedness/ dizziness, syncope, leg swelling, recent weight changes, claudication, n/v, cough or fever. At [facility] (arrived at about 3:30 pm), he received [...] a prior EKG done in 05/16 at [facility] (no old EKGs in [facility] records). HIs BP was found to be initially 202/104 at which time he was given [id number] mg p.o. As it improved to 108/72 [...] was controlled at 6.4% in 08/20 at [facility]). Patient takes an array of vitamins and [...] and has a brother who of an CA at age 63. Past Medical History: Past [...] headaches. Medications: Current facility-administered medications ordered in [facility] Medication Dose Route Frequency Provider Last Rate Last Dose ??? heparin (porcine) 25,000 unit/500 mL infusion 20 mL/hr (02/08/11 1900) No current [facility]-ordered outpatient prescriptions on file. Allergies: No Known [...] changes (unchanged from prior EKG sent to [facility] from [facility] in [facility]/16 CXR - pending LABS: No results found for this or any previous visit (from the past 24 hour(s)).// pending (unable to addlabs afterwards once H&P is accepted) ASSESSMENT: Mr. Gomes's elevated troponins in both hospitals (of 10.2 and 0.79 at [facility] respectively) categorizes him as a clear NSTEMI (JATIN risk score - 4, high risk; age - 1 pt, risk factors - 1pt, chestpain episodes - 1 pt, +ve troponin - 1 pt). Mr. Gomes has a long-standing history of non-compliance with medication and it is entirely possible that he is still having some residual chest pain without expressing this. [facility] at his 's insistence. I believe [...] Another concern is [facility] (175 and 196 [...] in the 80s since his arrival at [facility]. His BP has been quite variable at [facility] ranging from a SBP in 200s to [...] to potential cardiac cath)/ will need to adoption counselor importance of potentially continuing plavix as [...] of plavix) Provider: MALCOLM LÓPEZ Pager #: [phone] documented in this encounter Procedure Notes Provider, Scanning - 02/11/2011 6:40 PM EDTAssociated Order(s): SCAN DOC: CYBER THREAT ANALYST; SCAN DOC: CYBER THREAT ANALYST Provider, Scanning - 02/11/2011 4:50 PM EDTAssociated [...] 4:13 PM EDT Discharge Summary - Bonita Valdez APRN - 02/10/2011 10:55 AM EDT Inpatient Cardiology [...] statin), Psoriasis, no cardiac history comes to [facility] from [facility] for evaluation of chest pain that started [...] to the ED after she returned from [place] in the early afternoon. Patient's ROS is [...] angiography. The patient went to the cardiac freezer laboratory technician for a diagnostic cath which showed [...] in a supervised cardiac rehab program at [facility]. The patient was discharged home in stable condition. Important Studies and Lab Data: Lab Results Component Value Date WBC 9.9 02/10/2011 HGB 15.5 02/10/2011 HCT 46.1 02/10/2011 PLATELET 209 02/10/2011 Recent Labs Basename 02/08/113 ??? INR 1.1 Lab Results Component Value Date NA 138 02/10/2011 K 3.8 02/10/2011 CL 105 02/10/2011 CO2 23 02/10/2011 BUN 13 02/10/2011 CREATININE 1.15 02/10/2011 Recent Labs Basename 02/08/11 2113 ??? TSH 2.43 Recent Labs Basename 02/09/11 [...] appointments: During 8am-5pm Wednesday through Wednesday call [phone] to speak with a nurse in the cardiology clinic All other times call [phone] and ask to speak to the teenage babysitter engineer operations and maintenance. Return to work: One week Driving: No driving for 48 hours after catheterization. Follow up Appointments: PCP Dr. Chavez Friday February 18, 2011 at 10:30am in [facility] Shipping And Receiving Operator Dr. Negron in [facility] You will get a letter about this appointment in the mail Home oxygen therapy: N/A Arrangements for VNA/home care: none General Instructions Provider Contact Information: BONITA VALDEZ, MACHINE FASTENER [phone] Discharge References/Attachments: Discharge References/Attachments None Signed: BONITA VALDEZ 02/10/2011 Miscellaneous - Provider, Scanning - 02/09/2011 4:19 AM EDT Miscellaneous - Provider, Scanning - 02/09/2011 4:19 AM EDT documented in this encounter Plan of Treatment Not on filedocumented as of this encounter Procedures Procedure Name Priority Date/Time Associated Comments Diagnosis CARDIAC CATHETERIZATION Routine 02/12/2011 8:12 PM EDT CYBER THREAT ANALYST SCAN 02/11/2011 6:40 Resu lts for this [...] STAT 02/10/2011 8:07 Results f or this ([facility]) AM EDT procedure are i n the [...] ENZYMES Routine 02/09/2011 10:24 Results for this ([facility]) AM EDT procedure are i n the results section. APTT STAT 02/09/2011 10:24 Results for this AM EDT procedure are i n the results section. POCT GLUCOSE Routine 02/09/2011 8:09 Results for this AM EDT procedure are i n the results section. CARDIAC ENZYMES Routine 02/09/2011 5:56 Results f or this ([facility]) AM EDT procedure are i n the [...] Routine 02/08/2011 9:13 Results f or this ([facility]) PM EDT procedure are i n the [...] II, MD CARDIAC CATH ORDERABLES SCAN DOC: CYBER THREAT ANALYST (02/11/2011 6:40 PM EDT) Narrative 02/12/2011 2:00 [...] LAB USE ONLY (02/10/2011 12:01 PM EDT) athologist Signature POC Glucose 110 60 - [...] Organization Address City/State/ZIP Code Phon e Number [place] [id number] CERNER MILLENNIUM (ABNORMAL) REFLEX LAB-A-DIFF (02/10/2011 8:07 AM EDT) [facility] gist Method Time Signature Neutrophils % 73.2 [...] II, MD HEMATOLOGY ORDERABLES Performing Organization Address City/[facility] [place] [address] CERNER MILLENNIUM Hepatic Function [...] II, MD CHEMISTRY ORDERABLES Performing Organization Address [facility] [place] [address] CERNER MILLENNIUM (ABNORMAL) Cardiac Enzymes (02/10/2011 8:07 AM EDT) athologist Signature Troponin-T 0.98 (H) <=0.03 CERNER [...] of the Joint [place] an Society of Cardiology/[place] College of Cardiology Committee for the redefinition of myocardial infarction. Journal of the [place] College of Cardi ology 2000; 36: 959-969] CK, Total 199 0 - 200 unit/L CERNER MILLENNI UM Specimen Anatomical Collection Method Collection Time Receive d Time (Source) Location / / Volume Laterality Blood specimen 02/10/2011 8:07 AM 011 8:39 (specimen) EDT AM EDT Baldemar Jacome II, MD CHEMISTRY ORDERABLES Performing Organization Address City/State/[place] [address] CERNER MILLENNIUM (ABNORMAL) CBC (with Diff) (02/10/2011 8:07 AM EDT) athologist Signature WBC 9.9 4.0 - 10.0 CERNER x10(3)/mcL MILLENNIUM RBC 5.27 4.63 - CERNER 6.08 MILLENNIUM x10(6)/mcL Hemoglobin 15.5 13.7 - CERNER 17.5 gm/dL MILLENNIUM Hematocrit 46.1 40.0 - CERNER 51.0 % MILLENNIUM MCV 87.5 79.0 - CERNER 92.0 fL [facility] MCH 29.4 25.6 - CERNER 32.2 pg [facility] MCHC 33.6 32.0 - CERNER 36.5 gm/dL [facility] Platelets 209 145 - 370 CERNER x10(3)/mcL [facility] RDWSD 45.9 35.0 - CERNER 46.0 [facility] RDWCV 14.5 (H) 10.9 - CERNER 14.4 % [facility] MPV 10.2 9.0 - 12.0 CERNER fL [facility] Specimen Anatomical Collection Method Collection Time Receive d Time (Source) Location / / Volume Laterality Blood specimen 02/10/2011 8:07 AM 011 8:39 (specimen) EDT AM EDT Baldemar Jacome II, MD HEMATOLOGY ORDERABLES Performing Organization Address City/State/ZIP [place] [address] CERNER [facility] (ABNORMAL) BMP w/fasting Glucose (02/10/2011 8:07 AM EDT) athologist Signature Glucose 171 (H) 65 - 99 CERNER Fasting mg/dL [facility] Comment: ?Fasting* Glucose Interpretive C riteria [...] of Diabetes Mellitus, Position Statement from the [place] Diabetes Association. ??Diabete s Care, Volume 33, [...] II, MD CHEMISTRY ORDERABLES Performing Organization Address City/[facility]/ZIP Code Phon e Number [address] [facility] Done In :60 [facility] POCT GLUCOSE LAB USE ONLY (02/10/2011 7:55 AM EDT) athologist Signature POC Glucose 188 60 - 199 CERNER mg/dL [facility] Comment: Supplemental ranges: <110 mg/dL before meals <200 mg/dL all other times of the day Specimen Anatomical Collection Method Collection Time Receive d Time (Source) Location / / Volume Laterality Blood specimen 02/10/2011 7:55 AM 011 7:55 (specimen) EDT AM EDT Baldemar Jacome II, MD POINT OF CARE TEST ORDERABLE S Performing Organization Address [facility] Phon e Number [address] [facility] EKG 12-LEAD Is a rhythm strip needed?: [...] 411 ms MUSE SYSTEM (Bezet) Calculated P [place] 42 degrees MUSE SYSTEM Calculated R [place] -32 degrees MUSE SYSTEM Calculated [place] 38 degrees MUSE SYSTEM INTERPRETATION Sinus bradycardia [...] Jhaveri MD ECG ORDERABLES Performing Organization Address City/[facility]/ZIP Code Phon e Number MUSE SYSTEM (ABNORMAL) POCT GLUCOSE LAB USE ONLY (02/09/2011 8:27 PM EDT) athologist Signature POC Glucose 222 (H) 60 - 199 CERNER mg/dL MILLENNIUM Comment: Supplemental ranges: <110 mg/dL before meals <200 mg/dL all other times of the day Specimen Anatomical Collection Method Collection Time Receive d Time (Source) Location / / Volume Laterality Blood specimen 02/09/2011 8:27 PM 011 8:27 (specimen) EDT PM EDT Baldemar Jacome II, MD POINT OF CARE TEST ORDERABLE S Performing Organization Address [facility]/ZIP [facility] [place] [address] [facility] POCT GLUCOSE LAB USE ONLY (02/09/2011 6:22 PM EDT) athologist Signature POC Glucose 109 60 - 199 CERNER mg/dL [facility] Comment: Supplemental ranges: <110 mg/dL before meals <200 mg/dL all other times of the day Specimen Anatomical Collection Method Collection Time Receive d Time (Source) Location / / Volume Laterality Blood specimen 02/09/2011 6:22 PM 011 6:22 (specimen) EDT PM EDT Baldemar Jacome II, MD POINT OF CARE TEST ORDERABLE S Performing Organization Address City/[facility] [place] [address] [facility] EKG 12-LEAD Is a rhythm strip needed?: [...] 420 ms MUSE SYSTEM (Bezet) Calculated P [place] 54 degrees MUSE SYSTEM Calculated R [place] -45 degrees MUSE SYSTEM Calculated T [place] 36 degrees MUSE SYSTEM INTERPRETATION Sinus bradycardia MUSE SY STEM Left axis deviation Abnormal ECG When compared with ECG of 09-FEB-2011 10:42, No significant change was found Confirmed by MD Taylor Douglas ([id number]) on 02/10/2011 3:13:47 PM Specimen Anatomical Collection Method Collection Time Receive d Time (Source) Location / / Volume Laterality 02/09/2011 4:46 PM 1 3:13 EDT PM EDT Serge Jhaveri MD ECG ORDERABLES Performing Organization Address City/State/ZIP Code Phon e Number MUSE SYSTEM POCT GLUCOSE LAB USE ONLY (02/09/2011 12:28 PM EDT) P athologist Signature POC Glucose 113 60 - 199 CERNER mg/dL [facility] Comment: Supplemental ranges: <110 mg/dL before meals <200 mg/dL all other times of the day Specimen Anatomical Collection Method Collection Time Receive d Time (Source) Location / / Volume Laterality Blood specimen 02/09/2011 12:28 1 (specimen) PM EDT 12:28 PM EDT Baldemar Jacome II, MD POINT OF CARE TEST ORDERABLE S Performing Organization Address City/State/ZIP [place] [address] CERNER [facility] Echocardiogram limited (02/09/2011 10:52 AM EDT) Specimen (Source) Anatomical Location Collection Method / Collectio n Time Received Time / Laterality Volume 07/23/2011 Narrative [facility] - 07/23/2011 3:52 PM EDT Procedure: ? Transthoracic Echocardiogram ? Patient: ? NIDIA SKINNER M ? (Age): 1940(71) Med Rec#: ?[id number] ?Sex: ?M ? Site Loc: ?[facility] ?Ht / Wt: ??178(cm)/86(kg) Pt. Loc: ? Adult Floor ? BSA: ?2.06 Study Date: ?02/09/2011 ?Pt. Type: Inpatient Tape: ? Referring: Malcolm López Referring: NILA CHAND J Broomcorn Sorter: Unknown Residential Program Worker: Mateo Rincon [facility] Interpreting Fellow: Alla Vera Interpreting Fellow: Angela Newman Diagnosis: ??Chest pain (786.50) CPT Code(s): ??Echo Full (88107), ??Spec tral Doppler (97215), ??Color Doppler (80867), Indication(s): ??Chest Pain Rhythm: SUMMARY: 1. The [...] ? Mid-Inferior ?Normal ? Mid-Inferoseptal ?Normal ? [place]-Septal ? Normal ? [place]-Anterior ? Normal ? [place]-Lateral ?Normal ? [place]-Inferior ? Normal ? [place]-Tip ?Normal ? Chambers ?Value ?Units (Range) ? [...] ? 07/23/2011 15:51:41 Images reviewed and interpretation bart [facility] Cardiac Ultrasound Laboratory Procedure Note Serge Pizarro MD - 07/23/2011Formatti ng of this note might be different from the original. Procedure: Transthoracic Echocardiogram Patient: NIDIA Calderon (Age): [birth year]) Med Rec#: [id number] Sex: M Site Loc: [facility] Ht / Wt: 178(cm)/86(kg) Pt. Loc: Adult Floor BSA: 2.06 Study Date: 02/09/2011 Pt. Type: Inpatie nt Tape: Referring: Malcolm López Referring: NILA CHAND J Broomcorn Sorter: Unknown Residential Program Worker: Mateo Rincon RDCS Interpreting Fellow: Alla Vera Interpreting Fellow: Angela Newman Diagnosis: Chest pain (786.50) CPT Code(s): Echo Full (21019), Spectral Doppler (85166), Color Doppler (55305), Indication(s): Chest Pain Rhythm: SUMMARY: 1. The [...] Hypokinetic Mid-Posterolateral Hypokinetic Mid-Inferior Normal Mid-Inferoseptal Normal [place]-Septal Normal [place]-Anterior Normal [place]-Lateral Normal [place]-Inferior Normal [place]-Tip Normal Chambers Value Units (Range) IVSd 2D [...] :41 Images reviewed and interpretation verif ied [facility] Cardiac Ultrasound Laboratory Malcolm López MD ECHO ORDERABLES Performing Organization Address City/State/ZIP Code Phon e Number [facility] EKG 12-LEAD Is a rhythm strip needed?: No; Reason for Exam:: Acute CA (02/09/2011 10:42 AM EDT) [facility] Method Time Signature Ventricular rate 66 BPM MUSE SYSTEM Atrial Rate 66 BPM MUSE SYSTEM P-R Interval 160 ms MUSE SYSTEM QRS Duration 104 ms MUSE SYSTEM Q-T Interval 406 ms MUSE SYSTEM QTC Calculated 425 ms MUSE SYSTEM (Bezet) Calculated P [place] 55 degrees MUSE SYSTEM Calculated [place] -25 degrees MUSE SYSTEM Calculated T [place] 39 degrees MUSE SYSTEM INTERPRETATION Normal sinus rhythm MUSE SYSTEM Normal ECG When compared with ECG of 08-FEB-2011 21:00, (unconfirmed) Left posterior fascicular block is no longer Present Confirmed by Kvng Pineda Mandeep S ([id number]) on 02/09/2011 1:08:20 PM Specimen Anatomical Collection Method Collection Time Receive d Time (Source) Location / / Volume Laterality 02/09/2011 10:42 02/09/2011 1:08 AM EDT PM EDT Baldemar Jacome II, MD ECG ORDERABLES Performing Organization Address City/State/ZIP Code Phon e Number MUSE SYSTEM (ABNORMAL) APTT (02/09/2011 10:24 AM EDT) athologist Signature PTT 114 (H) 25 - 37 sec [facility] Comment: Recommended therapeutic PTT range for fu ll dose unfractionated heparin is 80-114 seconds. Specimen Anatomical Collection Method Collection Time Receive d Time (Source) Location / / Volume Laterality Blood specimen 02/09/2011 10:24 1 (specimen) AM EDT 10:43 AM EDT Malcolm López MD HEMATOLOGY ORDERABLES Performing Organization Address City/State/Z[place] [address] CERNER [employer] (ABNORMAL) Cardiac Enzymes (02/09/2011 10:24 AM EDT) P athologist Signature Troponin-T 0.89 (H) <=0.03 GRACIENER ng/mL [employer] Comment: 0.03 ng/mL: Represents the 99th percenti [...] of the Joint [place] an Society of Cardiology/[place] College of Cardiology Committee for the redefinition of myocardial infarction. Journal of the [place] College of Cardi ology 2000; 36: 959-969] CK, Total 309 (H) 0 - 200 unit/L CERNER MILLENNI UM Specimen Anatomical Collection Method Collection Time Receive d Time (Source) Location / / Volume Laterality Blood specimen 02/09/2011 10:24 1 (specimen) AM EDT 10:43 AM EDT Malcolm López MD CHEMISTRY ORDERABLES Performing Organization Address City/[facility]/ZIP [place] [address] CERNER MILLENNIUM POCT GLUCOSE LAB USE ONLY (02/09/2011 8:09 AM EDT) athologist Signature POC Glucose 150 60 - 199 CERNER mg/dL [facility] Comment: Supplemental ranges: <110 mg/dL before meals <200 mg/dL all other times of the day Specimen Anatomical Collection Method Collection Time Receive d Time (Source) Location / / Volume Laterality Blood specimen 02/09/2011 8:09 AM 011 8:09 (specimen) EDT AM EDT Baldemar Jacome II, MD POINT OF CARE TEST ORDERABLE S Performing Organization Address City/[facility]/ZIP [facility] [place] [address] CERNER MILLENNIUM (ABNORMAL) Cardiac Enzymes (02/09/2011 5:56 AM EDT) athologist Signature Troponin-T 0.92 (H) <=0.03 CERNER ng/mL [facility]ILL[facility] Express[facility] Comment: 0.03 ng/mL: Represents the 99th percenti [...] of the Joint [place] an Society of Cardiology/[place] College of Cardiology Committee for the redefinition of myocardial infarction. Journal of the [employer] 2000; 36: 959-969] CK, Total 357 (H) 0 - 200 unit/L CERNER MILLENNI UM Specimen Anatomical Collection Method Collection Time Receive d Time (Source) Location / / Volume Laterality Blood specimen 02/09/2011 5:56 AM 011 6:13 (specimen) EDT AM EDT Malcolm López MD CHEMISTRY ORDERABLES Performing Organization Address City/State/[place] [address] CERNER MILLENNIUM (ABNORMAL) REFLEX LAB-A-DIFF (02/09/2011 2:49 AM EDT) [facility] gist Method Time Signature Neutrophils % 72.9 [...] Organization Address City/State/[place] [address] CERNER MILLENNIUM CBC (with [...] López MD HEMATOLOGY ORDERABLES Performing Organization Address [facility]/ZIP [place] [address] [facility] (ABNORMAL) APTT (02/09/2011 2:49 AM EDT) P athologist Signature PTT 93 (H) 25 - 37 sec CERNER [facility] Comment: Recommended therapeutic PTT range for fu ll dose unfractionated heparin is 80-114 seconds. Specimen Anatomical Collection Method Collection Time Receive d Time (Source) Location / / Volume Laterality Blood specimen 02/09/2011 2:49 AM 011 2:55 (specimen) EDT AM EDT Malcolm López MD HEMATOLOGY ORDERABLES Performing Organization Address City/[facility]/ZIP [facility] [place] [address] [facility] Glucose, fasting (02/09/2011 2:49 AM EDT) P athologist Signature Glucose 122 (H) 65 - 99 [facility] Fasting mg/dL [facility] Comment: ?Fasting* Glucose Interpretive C riteria [...] of Diabetes Mellitus, Position Statement from the [employer] [employer]. ??Diabete s Care, Volume 33, Supplement 1, Oct 2009 Specimen Anatomical Collection Method Collection Time Receive d Time (Source) Location / / Volume Laterality Blood specimen 02/09/2011 2:49 AM 011 2:55 (specimen) EDT AM EDT Malcolm López MD CHEMISTRY ORDERABLES Performing Organization Address [facility]/ZIP [place] [address] CERNER JESSICAENNIUM (ABNORMAL) LDL cholesterol, direct (02/09/2011 2:49 AM EDT) P athologist Signature LDL Chol 120 (H) <=99 mg/dL CERNER Direct [facility] Comment: The National Cholesterol Education Progr am (NCEP) has set the following guidelines for LDL Cholesterol: Reference range: ?? Optimal: ?<100 mg/dL ?? Near Optimal/Above Optimal: ?? 100-1 29 mg/dL ?? Borderline high: ?130-159 mg/dL ?? High: ? 160-189 mg/dL ?? Very high: ?>rn=140 mg/dL SHAHAB 2001: 285(19):0584-5522 Specimen Anatomical Collection Method Collection Time Receive d Time (Source) Location / / Volume Laterality Blood specimen 02/09/2011 2:49 AM 011 2:55 (specimen) EDT AM EDT Malcolm López MD CHEMISTRY ORDERABLES Performing Organization Address City/[facility]/ZIP [place] [address] CERJESS MYERS (ABNORMAL) Hemoglobin A1c (02/09/2011 2:49 AM EDT) Patholo gist Method Time Signature Hemoglobin A1C 6.6 (H) 4.3 - 6.1 CERNER % MILLENNIUM Est Avg Gluc See note mg/dL CERNER MILLENNIUM Comment: Estimated Average Glucose not appropriat e [...] with hemoglobinopathies. Additional resources are available on [facility] ADA website: ??http://professional.diabetes.org/gluc osecalculator.aspx Reference: Jasen BRISCOE, Kait J, Jaren R, et al. ??Tr anslating the A1C assay into estimated average glucose values. ??Diabetes Care 2008:31(8):3108-8974. Specimen Anatomical Collection Method Collection Time Receive d Time (Source) Location / / Volume Laterality Blood specimen 02/09/2011 2:49 AM 011 2:55 (specimen) EDT AM EDT Malcolm López MD CHEMISTRY ORDERABLES Performing Organization Address City/State/ZIP [place] [address] [facility] (ABNORMAL) Lipid panel (fasting) (02/09/2011 2:49 AM EDT) athologist Signature Chol, Total 184 <=199 mg/dL [facility] Comment: Recommendations of the NCEP Adult Treatm ent Panel for the following risk cutoff thresholds for the [place] popul[place] n: Desirable: <200 mg/dL Borderline High: 200-239 mg/dL High: > or = 240 mg/dL Triglycerides 70 <=149 mg/dL [facility] Comment: Reference Range: Normal triglycerides: ??<150 mg/dL Borderline high: ??150-199 mg/dL High: ??200-499 mg/dL Very high: ??>vf=229 mg/dL SHAHAB 2001; 285(19):3538-3549 HDL 51 >=40 mg/dL [facility] Comment: Reference range: ??Low HDL: ?? < 40 mg/dL ??Normal: ?40-60 mg/dL ??Desirable: > 60 mg/dL SHAHAB 2001; 285(19):4085-0094 LDL Cholesterol 119 (H) <=99 mg/dL [facility] Comment: Reference range: ?? Optimal: ?<100 mg/dL ?? Near Optimal/Above Optimal: ?? 100-1 29 mg/dL ?? Borderline high: ?130-159 mg/dL ?? High: ? 160-189 mg/dL ?? Very high: ?>uo=541 mg/dL SHAHAB 2001: 285(19):6272-2715 Chol/HDL Ratio 3.6 ratio [facility]ICAL[facility] Comment: A Cholesterol to HDL ratio below 4:1 is desirable. ??Studies suggest that increased CAD risk occurs at ratios abov e 5 for females and above 6 for men. ? [employer] [employer] ??(htt p://www.americanheart.org) ? Urszula Int Med, 1994; 121:641 ? AM J Med, 1998; 105(1A):48S Specimen Anatomical Collection Method Collection Time Receive d Time (Source) Location / / Volume Laterality Blood specimen 02/09/2011 2:49 AM 011 2:55 (specimen) EDT AM EDT Malcolm López MD CHEMISTRY ORDERABLES Performing Organization Address City/State/[place] [address] [facility] CARRASQUILLOIUM XR chest [...] (ABNORMAL) REFLEX LAB-A-DIFF (02/08/2011 9:13 PM EDT) [facility] Method Time Signature Neutrophils % 78.0 [...] Organization Address City/State/Z[place] [address] CERNER MILLENNIUM (ABNORMAL) CBC [...] % MILLENNIUM MPV 9.7 9.0 - 12.0 [facility] Specimen Anatomical Collection Method Collection Time Receive d Time (Source) Location / / Volume Laterality Blood specimen 02/08/2011 9:13 PM 011 9:18 (specimen) EDT PM EDT Malcolm López MD HEMATOLOGY ORDERABLES Performing Organization Address [facility] [place] [address] CERNER MILLENNIUM (ABNORMAL) Cardiac Enzymes (02/08/2011 9:13 PM EDT) P athologist Signature Troponin-T 0.79 (H) <=0.03 CERNER ng/mL [facility] Comment: 0.03 ng/mL: Represents the 99th [...] of the [employer] [place] [employer] of Cardiology/[place] [employer] Committee for the redefinition of myocardial infarction. Journal of the [employer] 2000; 36: 959-969] CK, Total 537 (H) 0 - 200 unit/L [facility] UM Specimen Anatomical Collection Method Collection Time Receive d Time (Source) Location / / Volume Laterality Blood specimen 02/08/2011 9:13 PM 011 9:18 (specimen) EDT PM EDT Malcolm López MD CHEMISTRY ORDERABLES Performing Organization Address City/[facility]/ZIP [place] [address] [facility] JESSICAENNIUM (ABNORMAL) APTT (02/08/2011 9:13 PM EDT) athologist Signature PTT 67 (H) 25 - 37 sec CERNER MILLENNIUM Comment: Recommended therapeutic PTT range for fu ll dose unfractionated heparin is 80-114 seconds. Specimen Anatomical Collection Method Collection Time Receive d Time (Source) Location / / Volume Laterality Blood specimen 02/08/2011 9:13 PM 011 9:18 (specimen) EDT PM EDT Malcolm López MD HEMATOLOGY ORDERABLES Performing Organization Address City/[facility] [place] [address] CERNER MILLENNIUM Protime-INR (02/08/2011 9:13 PM EDT) athologist Signature PT 14.2 12.3 - 14.7 CERNER sec MILLENNIUM Comment: [facility] Transfusion Committee Guidelines: I NR less [...] López MD HEMATOLOGY ORDERABLES Performing Organization Address [facility] [place] [address] CERNER MILLENNIUM (ABNORMAL) Hepatic function panel (02/08/2011 9:13 PM EDT) athologist Signature Total Protein 7.4 6.4 - [...] López MD CHEMISTRY ORDERABLES Performing Organization Address City/[facility]/ZIP Code Phon e Number [address] CERNER MILLENNIUM (ABNORMAL) Brain natriuretic peptide (02/08/2011 9:13 PM EDT) P athologist Signature ProBNP 668 (H) <=125 pg/mL CERNER MILLENNIUM Specimen Anatomical Collection Method Collection Time Receive d Time (Source) Location / / Volume Laterality Blood specimen 02/08/2011 9:13 PM 011 9:18 (specimen) EDT PM EDT Malcolm López MD CHEMISTRY ORDERABLES Performing Organization Address City/[facility]/ZIP Code Phon e Number [address] CERNER MILLENNIUM TSH (02/08/2011 9:13 PM EDT) P athologist Signature TSH 2.43 0.27 - 4.20 CERNER mcIU/mL MILLENNIUM Specimen Anatomical Collection Method Collection Time Receive d Time (Source) Location / / Volume Laterality Blood specimen 02/08/2011 9:13 PM 011 9:18 (specimen) EDT PM EDT Malcolm López MD CHEMISTRY ORDERABLES Performing Organization Address City/[facility]/ZIP [place] [address] CERNER MILLENNIUM Phosphorus (02/08/2011 9:13 PM EDT) P athologist Signature Phosphorus 3.6 2.5 - 4.5 CERNER mg/dL MILLENNIUM Specimen Anatomical Collection Method Collection Time Receive d Time (Source) Location / / Volume Laterality Blood specimen 02/08/2011 9:13 PM 011 9:18 (specimen) EDT PM EDT Malcolm López MD CHEMISTRY ORDERABLES Performing Organization Address City/[facility]/ZIP [place] [address] CERNER MILLENNIUM Magnesium (02/08/2011 9:13 PM EDT) athologist Signature Magnesium 0.84 0.69 - 1.07 CERNER mmol/L MILLENNIUM Specimen Anatomical Collection Method Collection Time Receive d Time (Source) Location / / Volume Laterality Blood specimen 02/08/2011 9:13 PM 011 9:18 (specimen) EDT PM EDT Malcolm López MD CHEMISTRY ORDERABLES Performing Organization Address City/[facility]/ZIP [facility] [place] [address] CERNER MILLENNIUM Calcium (02/08/2011 9:13 PM EDT) athologist Signature Calcium 9.2 8.5 - 10.5 CERNER mg/dL MILLENNIUM Specimen Anatomical Collection Method Collection Time Receive d Time (Source) Location / / Volume Laterality Blood specimen 02/08/2011 9:13 PM 011 9:18 (specimen) EDT PM EDT Malcolm López MD CHEMISTRY ORDERABLES Performing Organization Address City/[facility]/ZIP [facility] [place] [address] CERNER MILLENNIUM Basic metabolic panel (02/08/2011 9:13 PM EDT) athologist Signature Glucose Lvl 162 60 - 199 CERNER mg/dL MILLENNIUM Comment: Diabetes: >=200 mg/dL plus symp toms [...] Organization Address City/State/ZIP [place] [address] [facility] POCT GLUCOSE LAB USE ONLY (02/08/2011 9:07 PM EDT) P athologist Signature POC Glucose 196 60 - 199 [facility] mg/dL [facility] Comment: Supplemental ranges: <110 mg/dL before meals <200 mg/dL all other times of the day Specimen Anatomical Collection Method Collection Time Receive d Time (Source) Location / / Volume Laterality Blood specimen 02/08/2011 9:07 PM 011 9:07 (specimen) EDT PM EDT Baldemar Jacome II, MD POINT OF CARE TEST ORDERABLE S Performing Organization Address City/State/ZIP Code Phon e Number [address] [facility] EKG 12-LEAD Is a rhythm strip needed?: No; Reason for Exam:: Chest Pain (02/08/2011 9:00 PM EDT) Patholo gist Method Time Signature Ventricular rate 79 BPM MUSE SYSTEM Atrial Rate 79 BPM MUSE SYSTEM P-R Interval 150 ms MUSE SYSTEM QRS Duration 102 ms MUSE SYSTEM Q-T Interval 396 ms MUSE SYSTEM QTC Calculated 454 ms MUSE SYSTEM (Bezet) Calculated P [place] 5 degrees MUSE SYSTEM Calculated R [place] 110 degrees MUSE SYSTEM Calculated T [place] 32 degrees MUSE SYSTEM INTERPRETATION Normal sinus [...] SYSTEM documented in this encounter Visit Diagnoses Diagnosis Chest pain - Primary Chest pain, unspecified Hyperlipidemia Other and unspecified hyperlipidemia Chest pain, unspecified Other and unspecified hyperlipidemia NSTEMI (non-ST elevated myocardial infar ction) Acute myocardial infarction, subendocard ial infarction, episode of care unspecified Acute myocardial infarction, subendocard ial infarction, episode of care unspecified documented in this encounter Administered Medications Inactive Administered Medications - up to 3 most recent administrations Medication Order MAR Action Action Date Dose Rate Site amlodipine (NORVASC) tablet 5 mg Given 02/10/2011 9:00 AM EDT 5 mg 5 mg, Oral, DAILY, First dose on Wed02/09/11 at 0900, Until Discontinued, Routine Given 02/09/2011 8:29 AM EDT 5 mg aspirin tablet 325 mg Given 02/10/2011 9:00 AM EDT 325 mg 325 mg, Oral, DAILY, First dose on Wed02/08/11 at 2115, Until Discontinued, Routine Given 02/08/2011 9:34 PM EDT 325 mg atorvastatin (LIPITOR) tablet 40 mg Given 02/09/2011 6:47 PM EDT 40 mg 40 mg, Oral, DAILY WITH DINNER, First dose on Wed02/09/11 at 1700, Until Discontinued, Routine clopidogrel (PLAVIX) tablet 300 mg Given 02/08/2011 9:34 PM EDT 300 mg 300 mg, Oral, ONCE, 1 dose, On Wed02/08/11 at 2115, Pre-Admission Testing (Prior to Admission), Routine clopidogrel (PLAVIX) tablet 300 mg Given 02/08/2011 12:10 AM EDT 300 mg 300 mg, Oral, ONCE, 1 dose, On Wed02/08/11 at 2315, Routine clopidogrel (PLAVIX) tablet 75 mg Given 02/10/2011 9:00 AM EDT 75 mg 75 mg, Oral, DAILY, First dose on Wed02/10/11 at 0900, Until Discontinued, Routine diaZEPam (VALIUM) tablet 5 mg Given 02/09/2011 1:50 PM EDT 5 mg 5 mg, Oral, ONCE, 1 dose, On Wed02/09/11 at 1415, Cath (Day of Procedure), Routine diphenhydrAMINE (BENDARYL) tablet 25 mg Given 02/09/2011 1:50 PM EDT 25 mg 25 mg, Oral, ONCE, 1 dose, On Wed02/09/11 at 1415, Cath (Day of Procedure), Routine famotidine (PEPCID) tablet 20 mg Given 02/10/2011 9:00 AM EDT 20 mg 20 mg, Oral, 2 TIMES DAILY, First dose on Wed02/08/11 at 2115, Until Discontinued, Routine Given 02/09/2011 9:00 PM EDT 20 mg Given 02/09/2011 8:29 AM EDT 20 mg heparin (porcine) 25,000 unit/500 mL New Bag 02/08/2011 7:00 PM ED T 20 mL/hr infusion 1 dose, Starting on Wed02/08/11 at 1912, Until Wed02/08/11 at 1900, MARLOJER HENRIQUEZ: Cabinet Override heparin 68489 units in Rate/Dose Verify 02/09/2011 3:15 AM 1,150 Un its/hr 23 mL/hr dextrose 5% 500 mL EDT infusion 350-7,000 Units/hr (rounded to 7-140 mL/hr), Intravenous, CONTINUOUS, Starting on Wed02/08/11 at 2115, Until Wed02/10/11 at 0102, Patient Weight 85-89 kg Initial dose - 1,000 units/hr = 20 mL/hr PTT less than 60 sec - increase by 350 units/hr = 7 mL/hr PTT 60-79 sec- increase by 150 units/hr = 3 mL/hr PTT 80-114 sec - no change PTT 115-129 sec - decrease by 100 units/hr = 2 mL/hr PTT 130-145 sec - stop infusion for 30 min then decrease by 150 units/hr = 3 mL/hr PTT greater than 145 sec - stop infusion for 60 min then decrease by 250 units/hr = 5 mL/hr PTT greater than 145 sec X 2 - call greenhouse transplanter See Bolus dosing guidance for aPTT values between 60-70 seconds under PRN medications , Pre-Admission Testing (Prior to Admission), Routine Rate/Dose Change 02/08/2011 9:42 PM EDT 1,150 Units/hr 23 mL/hr New Bag 02/08/2011 9:15 PM EDT 1,000 Units/hr 20 mL/hr insulin aspart (novoLOG) PEN injection 2-8 Given 02/09/2011 9:00 PM EDT 6 Units Units 2-8 Units, Subcutaneous, 4 TIMES DAILY BEFORE MEALS & NIGHTLY, First dose on Wed02/08/11 at 2115, Until Discontinued, CORRECTION BOLUS Moderate BG 140 - 160 Give 2 units BG 161 - 200 Give 4 units BG 201 - 240 Give 6 units BG greater than 240, give 8 units every 2 hours until BG less than 240 (no more than three times) & call for new basal insulin orders , Routine Given 02/09/2011 8:29 AM EDT 2 Units Given 02/08/2011 10:09 PM EDT 4 Units lisinopril (PRINIVIL;ZESTRIL) tablet 20 mg Given 02/10/2011 9:00 AM EDT 20 mg 20 mg, Oral, DAILY, First dose on Wed02/09/11 at 0900, Until Discontinued, Routine Given 02/09/2011 8:30 AM EDT 20 mg metoprolol tartrate (LOPRESSOR) tablet 12.5 Given 12/2010 6:00 AM EDT 12.5 mg mg 12.5 mg, Oral, EVERY 6 HOURS SCHEDULED, First dose on Wed02/09/11 at 0000, Until Discontinued, Hold for SBP less than 100 mmHG or HR less than 60 beats per minute, Routine Given 02/10/2011 12:00 AM EDT 12.5 mg Given 02/09/2011 6:47 PM EDT 12.5 mg perflutren lipid microspheres (DEFINITY) Given 02/09/2011 12:15 PM EDT 0.8 mLs injection 0.8 mL 0.8 mL, Intravenous, IMG ONCE PRN, 1 dose, Starting on Wed02/09/11 at 1248, Until Wed02/09/11 at 1215, Other, for enhancement of sub-optimal echo images, Echo Lab (Intra-Procedure), Routine sodium chloride 0.9% infusion New Bag 02/09/2011 12:18 AM EDT 80 mL/hr 80 mL/hr 80 mL/hr, Intravenous, CONTINUOUS, Starting on Wed02/08/11 at 2115, Until Wed02/09/11 at 0314, Pre-Admission Testing (Prior to Admission) sodium chloride 0.9% infusion New Bag 02/09/2011 9:15 AM EDT 100 mL/hr 100 mL/hr 100 mL/hr, Intravenous, CONTINUOUS, Starting on Wed02/09/11 at 0915, Until Wed02/10/11 at 0102 sodium chloride 0.9% infusion New Bag 02/09/2011 4:30 PM EDT 100 mL/hr 100 mL/hr 100 mL/hr, Intravenous, CONTINUOUS, Starting on Wed02/09/11 at 1645, Until Wed02/10/11 at 0244 documented in this encounter Active and Recently Administered Medications Times are shown in EDT. Scheduled Medication Order 02/08/2011 02/09/2011 02/10/2011 amlodipine (NORVASC) tablet 5 mg (CANCELED) 0829 (Given - Provider: Rosalba Mayfield) 0900 (Given - Provider: Ramya Horner, RN) 5 mg, Oral, DAILY, First dose on 02/09 at 0900, Until Discontinued, Routine aspirin tablet 325 mg 213 (Given - Provider: Tammie Lizarraga) 0900 (Given - Provider: Ramya Horner, RN) 325 mg, Oral, DAILY, First dose on Wed at 2115, Until Discontinued, Routine atorvastatin (LIPITOR) tablet 40 mg (CANCELED) 1846 (Given - Provider: Rosalba Mayfield) 40 mg, Oral, DAILY WITH DINNER, First do se on Wed02/09/11 at 1700, Until Discontinued, Routine clopidogrel (PLAVIX) tablet 300 mg (COMPLETED) 2133 (G iven - Provider: Meagan Hinds, GRACE) 300 mg, Oral, ONCE, 1 dose, Wed02/08/11 at 2115, Pre-Admissio n Testing, Routine clopidogrel (PLAVIX) tablet 300 mg (COMPLETED) 9 (G iven - Provider: Meagan Hinds, GRACE) 300 mg, Oral, ONCE, 1 dose, On Wed02/08/11 at 2315, Routine clopidogrel (PLAVIX) tablet 75 mg 09 (Given - Provider: Ramya Horner, GRACE) 75 [...] Rosalba Mayfield) 2100 (Given - Provider: Francoise Sanches, RN) 0900 (Given - Provider: Ramya Horner, GRACE) 20 mg, Oral, 2 TIMES DAILY, First dose o n Wed02/08/11 at 2115, Until Discontinued, Routine insulin aspart (novoLOG) PEN injection 2-8 Units (CAN ELED) 2209 (Given - Provider: Meagan Hinds, RN) 0829 (Given - Provider: Rosalba Mayfield) 1243 (Not Given - Provider: Rosalba Mayfield - Reason: Order parameters not met)1630 (Not Given - Provider: Rosalba Mayfield - Reason: Order parameters not met)2100 (Given - Provider: Francoise Sanches RN) 0730 (Not Given - Provider: Ramya Horner RN - Reason: Patient/family refused)1130 (Not Given - Provider: Ramya Horner RN - Reason: Order parameters not met) 2-8 Units, Subcutaneous, 4 TIMES DAILY B EFORE MEALS & NIGHTLY, First dose on Wed02/08/11 at 2115, Until Discontinued, CORRECTION BOLUS Moderate [...] mg (CANCELED) 0018 (Given - Provider: Meagan Hinds, GRACE)0612 (Given - Provider: Meagan Hinds, GRACE)1345 (Given - Provider: Rosalba Mayfield)1847 (Given - Provider: Rosalba Mayfield) 0000 (Given - Provider: Francoise Sanches, RN)0600 (Given - Provider: Francoise Sanches, RN)1200 (Due) 12.5 mg, Oral, EVERY 6 HOURS SCHEDULED, First dose on Wed02/09/11 at 0000, Until Discontinued, Hold for SBP less than 100 mmHG or HR less than 60 beats per minute, Routine Continuous Medication Order 02/08/2011 02/09/2011 02/10/2011 heparin 14422 units in dextrose 5% 500 mL infusion (CA NCELED) 2114 (New Bag - Provider: Meagan Hinds RN)2141 (Rate/Dose Change - Provider: Meagan Hinds RN) 314 (Rate/Dose Verify - Provider: Meagan Hinds RN)1400 [...] () 2114 (Canceled Entry - Provider: Meagan Hinds RN) 17 (New Bag - Provider: Meagan Hinds RN) 80 mL/hr, at 80 mL/hr, Intravenous, CONT INUOUS, Starting 02/08/11 at 2115, Until Wed02/09/11 at 0314, Pre-Admission Testing sodium chloride 0.9% infusion (CANCELED) 914 (New Bag - Provider: Rosalba Mayfield) 100 mL/hr, at 100 mL/hr, Intravenous, CO NTINUOUS, Starting Wed02/09/11 at 0915, Until Wed02/10/11 at 0102 sodium chloride 0.9% infusion () 1630 (New Bag - Provider: Nusrat Phelan RN) 100 mL/hr, at 100 mL/hr, Intravenous, CO NTINUOUS, Starting 02/09/11 at 1645, Until Wed02/10/11 at 0244 PRN Medication Order 02/08/2011 02/09/2011 02/10/2011 bivalirudin (ANGIOMAX) 250 mg in sodium chloride 0.9% 50 mL infusion (FLUID DESIGNER) (CANCELED) 1525 (New Bag - Provider: Toyin [...] Sublingual, EVERY 5 MIN PRN, Sta rting 02/08/11 at 2057, Until 02/10/11 at 1548, Chest pain, May repeat every 5 minutes for a total of three doses, Pre-Admission Testing, Routine perflutren lipid microspheres (DEFINITY) injection 0.8 mL (C OMPLETED) 1215 (Given - Provider: Mateo Rincon) 0.8 mL, Intravenous, IMG ONCE PRN, 1 dos e, Starting 02/09/11 at 1248, Until 02/09/11 at 1215, Other, for enhancement of sub-optimal echo images, Echo Lab, Routine No Frequency Medication Order 02/08/2011 02/09/2011 02/10/2011 heparin (porcine) 25,000 unit/500 mL infusion ([facility]) 1900 (New Bag - Provider: Marlo Henriquez RN) 1 dose, Starting [place] 02/08/11 at 1912, Unt il [place] 02/08/11 at 1900, MARLO HENRIQUEZ: Cabinet Override documented in this encounter Care Teams Head Cook Relationship Specialty Start Date End Date Angela Chavez MD PCP - General 09/02/10 [address] [place] [phone] documented as of this encounter
== END 2022-04-06 11:45 | disposition home or self-care (01) ==
LOC: DIORS 11:44
PROVIDERS: PCP Family Medicine; Referring Provider Family Medicine; Visit Provider Physician Assistant
DX: M17.11 Unilateral primary osteoarthritis, right knee (principal); M25.461 Effusion, right knee; M23.41 Loose body in knee, right knee
CPT/HCPCS: 73562

== ENCOUNTER 2022-04-14 13:35 | Outpatient (CLI) | payer OTHER, SELFPAY ==
--- NOTE | 2022-04-14 13:15 | DI.RAD_ITS ---
Exam(s) XR STANDING ALIGNMENT EXAM: XR STANDING ALIGNMENT CLINICAL HISTORY: TKR planning. TECHNIQUE: 2D digital imaging was performed. Standing AP views were performed from the pelvis throu gh the ankles. COMPARISON: No exams were available for comparison FINDINGS: There is prominent bilateral acetabular spurring. There is severe left hip joint space narrowing. T here is severe femoral tibial joint space narrowing of both knees, with a [id number] appearance.. There is significant lateral subluxation of the tibia with respect to the femur bilaterally. The ank le joint spaces are well maintained. The left femoral head projects superiorly to the right by 10 m illimeters. IMPRESSION: 10 millimeter leg length discrepancy. Severe degenerative changes of both knees as well as left hip . DATA REPOSITORY: RADIATION DOSE DELIVERED:
== END 2022-04-14 13:36 | disposition home or self-care (01) ==
LOC: DIORS 13:35
PROVIDERS: PCP Family Medicine; Referring Provider Family Medicine; Visit Provider Physician Assistant
DX: M17.11 Unilateral primary osteoarthritis, right knee (principal)
CPT/HCPCS: 77073

== ENCOUNTER 2022-04-20 02:50 | Outpatient (CLI) | payer OTHER, SELFPAY ==
[2022-04-20 11:24] LABS: HCT 43.2 % (40.0-50.0); HGB 14.1 g/dL (13.5-17.5); MCHC 32.6 % (32.0-36.0); MCV 86 fL (80-95); MPV 9.2 fL (8.0-11.0); Platelet Count 292 10^3/uL (130-400); RBC 5.04 10^6/uL (4.36-5.78); RDW 15.8 % (11.8-14.1); RDW-SD 49.1 fL; WBC 8.08 10^3/uL (4.4-10.8)
[2022-04-20 12:25] LABS: Anion Gap 9.2 mmol/L (3-11); BUN 27 mg/dL (7-18); CO2 26.8 mmol/L (21.0-32.0); CREATININE 1.6 mg/dL (0.70-1.30); Calcium 9.2 mg/dL (8.5-10.1); Chloride 101 mmol/L (98-107); Estimated GFR 41.39 (mL/min/1.73m2); Glucose 136 mg/dL (74-106); Potassium 3.9 mmol/L (3.5-5.1); Sodium 137 mmol/L (136-145)
[2022-04-20 12:40] LABS: Source Nasal/Nares
[2022-04-20 15:24] LABS: COVID-19 PCR Negative (Negative)
== END 2022-04-20 02:51 | disposition home or self-care (01) ==
LOC: LBO 02:50
PROVIDERS: PCP Family Medicine; Visit Provider Student in an Organized Health Care Education/Training Program
DX: M25.561 Pain in right knee (principal); M17.11 Unilateral primary osteoarthritis, right knee; Z20.822 Contact with and (suspected) exposure to COVID-19; Z01.818 Encounter for other preprocedural examination; Z01.812 Encounter for preprocedural laboratory examination
CPT/HCPCS: 36415; 80048; 85027; 87635

== ENCOUNTER 2022-04-20 03:17 | Outpatient (CLI) | payer OTHER, SELFPAY | END 2022-04-20 03:18 | disposition home or self-care (01) | LOC: LBO 03:17 | PROVIDERS: PCP Family Medicine; Visit Provider Student in an Organized Health Care Education/Training Program ==

== ENCOUNTER 2022-04-21 07:07 | Day surgery (SDC) | payer OTHER, SELFPAY ==
[2022-04-21] VITALS (9 sets, daily range): BP systolic 112–149; BP diastolic 61–85; PULSE 52–67; RESP 12–16; TEMP 36–36.6; O2SAT 96–99; BMI 22.8
--- NOTE | 2022-04-21 07:25 | PDOC.DSDIS_ITS ---
Discharge Plan Disposition Patient Disposition: HOME Condition: Good Discharge Details Reason For Visit: Right TKA Attending Provider: Cedric Pate Primary Care Provider: Ahmet Aguilar Home Meds and New Rx's Prescriptions: New celecoxib [Celebrex] 200 mg capsule 200 mg PO BID Qty: 60 0RF aspirin 81 mg tablet,delayed release (DR/EC) 81 mg PO BID Qty: 60 0RF pantoprazole [Protonix] 40 mg tablet,delayed release (DR/EC) 40 mg PO DAILY Qty: 30 0RF gabapentin 300 mg capsule 300 mg PO QHS Qty: 14 0RF acetaminophen 500 mg capsule 1,000 mg PO Q8H PRN PRNQty: 90 0RF oxycodone 5 mg tablet 5 mg PO Q4H PRNQty: 18 0RF Continued amlodipine 10 mg tablet 10 mg PO DAILY Fish Oil 120-180 mg capsule 1 cap PO DAILY garlic 1,500 mg capsule 1,500 mg PO QPC metoprolol succinate 25 mg tablet extended release 24 hr 25 mg PO DAILY multivitamin Tablet 1 tab PO DAILY Farxiga 10 mg tablet 10 mg PO DAILY Entresto 49-51 mg tablet 1 tab PO BID Discontinued aspirin [Adult Aspirin Regimen] 81 mg tablet,delayed release (DR/EC) 81 mg PO DAILY No Action aspirin 81 mg Tablet 81 mg PO DAILY Discharge Instructions Additional Instructions: Total Knee Discharge Instructions Activity: The most important activity is to walk. You should try to take short walks a few times a day. It is important that when resting you work on keeping the knee straight. Avoid putting a pillow behind the knee as this will encourage flexion. Work on range of motion exercises as provided by Physical Therapy. If you have the [employer] bike coming, this will be your primary tool for exercise after the knee replacement. You should use it and follow the directions for the knee. Utilize the other exercises sparingly based on your symptoms. - Start outpatient physical therapy within 2 weeks. - You should wear the GOLDEN hose on both legs for 2 weeks. You may remove these at night. You may also use any compression sock in place of the GOLDEN hose. - Utilize [employer] to review exercises, see videos on exercises and obtain basic information pertaining to your surgery and your recovery. Dressing: Remove the Wayne wrap by 2 days after your surgery and put on the GOLDEN stocking given to you from the hospital. Keep the surgical dressing (underneath the WAYNE wrap) in place for at least one week. After the first week it may be removed and replaced with light gauze and tape or nothing. The wound and dressing may get wet after 3 days but avoid soaking the dressing or otherwise it will need to be changed. Many people prefer covering the dressing with cling wrap (saran wrap) to minimize it from getting soaked. If it gets wet, just pat dry. If it starts to peel off then it will need to be changed. Medications: - You should take Tylenol and anti-inflammatory Celebrex as your primary pain control medications. If the Celebrex is too expensive or not covered, please call the office for another alternative (Advil/Ibuprofen or Naproxen/Aleve) - You have been prescribed a stronger pain medication Oxycodone for breakthrough pain, take as needed as prescribed. - You have also been prescribed a stomach acid reduction agent Pantoprozole to help reduce stomach acid and reflux. - You have been prescribed Gabapentin to take at night for restlessness and nerve pain. - You will be taking Aspirin 81mg twice a day for DVT prevention unless instructed otherwise. - If you have constipation you should take Colace or Miralax (both [id number]). It takes most people 3-4 days to have a bowel movement. Follow-up: 2 weeks If you have any acute concerns or questions, please do not hesitate to contact the office at [phone]. You may contact Dr. Pate with any questions after hours through the hospital at [phone] or on his cell phone at [phone]. 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
[2022-04-21] MEDS: Acetaminophen 500 MG TAB 1000 MG PO (07:55)
[2022-04-21] MEDS: Celecoxib 200 MG CAP 400 MG PO (07:56)
[2022-04-21] MEDS: Gabapentin 300 MG CAP PO (07:56)
[2022-04-21] MEDS: Lactated Ringers 1,000 ML 80 ML IV (08:17)
--- NOTE | 2022-04-21 08:53 | W.ANESPRE ---
General Info Date of Service Date Performed: 04/21/22 Height: 5 ft 10 in Weight: 72.1 kg Body Mass Index (BMI): 22.8 Surgical Procedure: Operation Date: 04/21/22 09:55 Proposed Procedure Side Surgeon p Knee Total Arthroplasty Cemented CR Right Cedric Pate MD Meds Allergies and Home Medications Allergies Allergy/AdvReac Type Severity Reaction Status Date / Time No Known Allergies Allergy Verified 04/21/22 09:05 Home Medication Medication Instructions Recorded amlodipine 10 mg tablet 10 mg PO DAILY 04/06/22 docosahexaenoic acid (dha)-epa 120 1 cap PO DAILY 04/06/22 mg-180 mg capsule (Fish Oil) garlic 1,500 mg capsule 1,500 mg PO QPC 04/06/22 metoprolol succinate 25 mg 25 mg PO DAILY 04/06/22 tablet,extended release 24 hr multivitamin 1 tab PO DAILY 04/06/22 dapagliflozin 10 mg tablet 10 mg PO DAILY 04/14/22 (Farxiga) sacubitril 49 mg-valsartan 51 mg 1 tab PO BID 04/14/22 tablet (Entresto) acetaminophen 500 mg capsule 1,000 mg PO Q8H PRN PRN #90 caps 04/21/22 aspirin 81 mg tablet 81 mg PO DAILY 04/21/22 aspirin 81 mg tablet,delayed 81 mg PO BID #60 tabs 04/21/22 release celecoxib 200 mg capsule (Celebrex) 200 mg PO BID #60 caps 04/21/22 gabapentin 300 mg capsule 300 mg PO QHS #14 caps 04/21/22 oxycodone 5 mg tablet 5 mg PO Q4H PRN #18 tabs 04/21/22 pantoprazole 40 mg tablet,delayed 40 mg PO DAILY #30 tabs 04/21/22 release (Protonix) Current Visit Medications: Current Medications Generic Name Dose Route Start Last Admin Trade Name Freq PRN Reason Stop Dose Admin Acetaminophen 1,000 mg 04/21/22 06:00 04/21/22 07:55 Acetaminophen 500 Mg Tab PO 1,000 mg PREOP CAREN Administration Acetaminophen 1,000 mg 04/21/22 14:00 Acetaminophen 500 Mg Tab PO TID CAREN Aspirin 81 mg 04/21/22 20:00 Aspirin E.C. 81 Mg Tabec PO BID CAREN Celecoxib 400 mg 04/21/22 06:00 04/21/22 07:56 Celecoxib 200 Mg Cap PO 400 mg PREOP CAREN Administration Celecoxib 200 mg 04/21/22 20:00 Celecoxib 200 Mg Cap PO BID CAREN Docusate Sodium 100 mg 04/21/22 07:22 Docusate Sodium 100 Mg Cap PO BID PRN PRN Constipation Gabapentin 300 mg 04/21/22 06:00 04/21/22 07:56 Gabapentin 300 Mg Cap PO 300 mg PREOP CAREN Administration Gabapentin 300 mg 04/21/22 22:00 Gabapentin 300 Mg Cap PO HS CAREN Hydromorphone HCl 0.5 mg 04/21/22 07:22 Hydromorphone 2 Mg/Ml Vial IVP Q2H PRN PRN Tranexamic Acid 1,000 mg/ 60 mls @ 360 mls/hr 04/21/22 06:00 Sodium Chloride IVPB PREOP CAREN Ringer's Solution 1,000 mls @ 80 mls/hr 04/21/22 06:00 04/21/22 08:17 IV 05/20/22 23:59 80 mls/hr INFUSION CAREN Administration Cefazolin Sodium/Dextrose 2 gm in 50 mls @ 100 mls/hr 04/21/22 06:00 Ancef Duplex IVPB 05/20/22 23:59 PREOP CAREN Cefazolin Sodium/Dextrose 1 gm in 50 mls @ 100 mls/hr 04/21/22 16:00 Ancef Duplex IVPB 04/22/22 08:29 Q8H CAREN IV Miscellaneous Supplies 1 each 04/21/22 06:00 Iv Access IV 05/20/22 23:59 DIRECTED CAREN Ondansetron HCl 4 mg 04/21/22 07:22 Ondansetron 4 Mg/2 Ml Vial IVP Q6H PRN PRN Nausea Oxycodone HCl 0 mg 04/21/22 07:22 Oxycodone 5 Mg Tab PO Q3H PRN PRN Pain Pantoprazole Sodium 40 mg 04/22/22 07:30 Pantoprazole 40 Mg Tabcr PO DAILY@0730 CAREN Sodium Chloride 0 ml 04/21/22 06:00 Normal Saline Flush 10 Ml Syr IV 05/20/22 23:59 PRN PRN Sodium Chloride 0 ml 04/21/22 06:00 Normal Saline 10 Ml Vial IJ 05/20/22 23:59 DIRECTED PRN Sterile Water 0 ml 04/21/22 06:00 Water,Injection,Sterile 10 Ml Vial IJ 05/20/22 23:59 DIRECTED PRN PFSH Active Problems Active Problems: Problem Status Onset Code 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 CAD (coronary artery disease) I25.10 Hypertensive disorder I10 Mixed hyperlipidemia E78.2 Type 2 diabetes mellitus E11.9 Hypothyroidism E03.9 Medical History Medical History Flexural psoriasis Impotence Medical History Comments:: bilateral hearing aids Surgical History Surgical History History of appendectomy Hx of cardiac catheterization (02/09/11) Tobacco Smoking/Tobacco Use Status: Former Tobacco Use Alcohol Alcohol Intake: never Substance Use Substance use: Never Substance use type: does not use Vital Signs and Lab Results Vital Signs Most Recent Vital Signs in EMR: Most Recent Vital Signs Temp Pulse Resp BP Pulse Ox 36.5 C 66 16 143/75 H 99 04/21/22 07:25 04/21/22 07:25 04/21/22 07:25 04/21/22 07:25 04/21/22 07:25 Lab Results Blood Type / Crossmatch: No Data to Display Complete Blood Count: White Blood Count 8.08 10^3/uL (4.4-10.8) 04/20/22 11:06 Red Blood Count 5.04 10^6/uL (4.36-5.78) 04/20/22 11:06 Hemoglobin 14.1 g/dL (13.5-17.5) 04/20/22 11:06 Hematocrit 43.2 % (40.0-50.0) 04/20/22 11:06 Platelet Count 292 10^3/uL (130-400) 04/20/22 11:06 Complete Metabolic Panel: Sodium Level 137 mmol/L (136-145) 04/20/22 11:06 Potassium Level 3.9 mmol/L (3.5-5.1) 04/20/22 11:06 Chloride Level 101 mmol/L (98-107) 04/20/22 11:06 Carbon Dioxide Level 26.8 mmol/L (21.0-32.0) 04/20/22 11:06 Blood Urea Nitrogen 27 mg/dL (7-18) H 04/20/22 11:06 Creatinine 1.6 mg/dL (0.70-1.30) H 04/20/22 11:06 Estimated GFR/1.73 m2 41.39 (mL/min/1.73m2) 04/20/22 11:06 Calcium Level 9.2 mg/dL (8.5-10.1) 04/20/22 11:06 Glucose Level 136 mg/dL (74-106) H 04/20/22 11:06 Liver Function Panel: No Data to Display Coagulation Panel: No Data to Display Cardiac Panel: No Data to Display Arterial Blood Gas: No Data to Display Venous Blood Gas: No Data to Display Pancreas Panel: No Data to Display Thyroid Panel: No Data to Display Infectious Disease: Coronavirus (COVID-19)(PCR) Negative (Negative) 04/20/22 11:17 Coronavirus 2019 Source Nasal/Nares 04/20/22 11:17 Blood Cultures: No Data to Display Toxicology Panel: No Data to Display Imaging and Studies Imaging and Studies Study information below may be from another EMR and interpreted by another provider. Please see original notes in EMR for more complete details. Stress Test Summary: Stress ECG Conclusion 1. The resting electrocardiogram showed voltage for left ventricular hypertrophy 2. Patient exercised on the Serge protocol and completed a workload of 7.05 METS 3. Normal heart rate and blood pressure response to exercise. The patient achieved 87% of predicted heart rate for age 4. Electrocardiographically the test was notable for [address] depression in the inferior leads which returned to baseline by minute 6 of recovery 5. There were no significant dysrhythmia 6. See MPI for results Salgado Treadmill Score is 4.9 which is Moderate risk. Echocardiogram Summary: 10/21/2021: Outside hospital ECHO report: EF 60-65% Mild , 1.1cm, peak/mean gradient 19mmHg/10mmHg Moderate AR Pulmonary Pressures: 30-40 mmHg Cardiac Catheterization Summary: 02/09/2011: BMS to mid-circumflex Anesthesia Assessment and Plan Anesthesia History Personal History: No History of Anesthesia Complications Family History: No Family History of Anesthesia Complications Exercise Tolerance Exercise Tolerance: Metabolic Equivalents>4 Pertinent Negatives Pertinent Negatives: No Symptoms of GERD and No Major Pulmonary Symptoms or Complaints Cardiac & Pulmonary Exam Cardiac Exam: Normal S1/S2 Heart Sounds Pulmonary Exam: Clear Bilateral Breath Sounds Implantable Cardiac Device Does patient have a Pacemaker or an ICD?: No Airway Exam Known Difficult Airway: No Mallampati Class: 2 Mouth Opening: Normal (> 3cm) Thyromental Distance: Greater than 3 cm Neck Range of Motion: Full ROM Neck Circumference: Normal Teeth Condition: Normal Dentition and Removable Dentures/Plates Upper ASA Classification ASA Score: ASA 3 Emergency Case?: No NPO Status NPO Status: NPO Clears >2 hours, Solids >8 hours Anesthesia Plan Resuscitation Status: Full Code Anesthesia Technique: Spinal Anesthesia Airway Planned: Natural Airway Pain Management: Surgeon and patient request nerve block Monitors Used: Standard Monitors
[2022-04-21] MEDS: ceFAZolin 2 GM/50 ML BAG IVPB (09:34)
--- NOTE | 2022-04-21 11:37 | W.ANESNERVE ---
Nerve Block Single Injection Procedure Date and Time Date Performed: 04/21/22 Procedure Start: 09:20 Location Where Procedure Performed Procedure Location: Day Surgery Unit Reason Performed: Postoperative Analgesia Requesting Provider: Cedric Pate Timeout Performed Timeout Performed: Yes Monitoring Used ECG, Blood Pressure, SpO2 and See EMR for corresponding vital signs Sterility Sterility: Hand Hygiene, Surgical Cap, Sterile Gloves, Eye Protection and Chlorhexidine Sedation Given During Procedure Sedation Given (Indicate Dose Given): No Sedation given Patient Mental Status Patient Mental Status: Awake Nerve Block 1st Nerve Block: Laterality: Right Block Type: Adductor Canal Needle / Catheter Used: 80mm SonoPlex II Local Anesthetic Bolus (Indicate Dose Given): Lidocaine used for local infiltration of skin, Injected in 3-5ml increments after negative blood aspiration and Bupivacaine 0.25% Dose:: 15 mL Additives (Indicate Dose Given): None Ultrasound: Sterile probe cover and gel used Ultrasound Image Saved?: Yes Nerve Stimulator: Not Used Paresthesia: None Procedure Tolerated: No Complications Procedure Outcome: Successful Performed By: Nichelle Mccollum
--- NOTE | 2022-04-21 12:23 | ROE_ITS ---
Date of service: 04/21/22 Time of Service: 11:10 Operative Note Operative Note DATE OF PROCEDURE: 04/21/22 PRE-OP DIAGNOSIS: Right Knee Osteoarthritis POST-OP DIAGNOSIS: same PROCEDURE: Right Total Knee Replacement SURGEON: Cedric Pate MOP WORKER: Margo Lake ANESTHESIA TYPE: Spinal Refer to Anesthesia Record ESTIMATED BLOOD LOSS: 150 PATHOLOGY: none sent COMPLICATIONS: None Patient was transported to: PACU Patient's condition: stable Implants: 1. Depuy Attune Cruciate Retaining Femoral Component, Size 7 2. Depuy Attune Rotating Platform Tibial Component, Size 7 3. Depuy Attune 7x8mm CR,RP Poly 4. Depuy Attune Patellar Component, Size 41 Indications: I have seen Kne in clinic for symptoms of knee arthritis, confirmed with radiographic findings. He has exhausted nonoperative methods and was having significant limitations in daily function and desired better function and less pain. I discussed the technical details of a knee replacement. I explained the risks of the procedure to include, but not limited to, bleeding, infection, pain, stiffness, fracture, damage to nerves and vessels, damage to muscles and tendons, loosening, need for repeat procedure, blood clot and cardiopulmonary demise. Despite these risks, Ken elected to proceed. Findings: There was significant signs of arthritis throughout the knee involving all 3 compartments with notable deformity of the posterior tibia and femur as well as multiple loose bodies.. Procedure Description: Ken was greeted in the preoperative holding area where the correct side was identified and marked. The consent was reviewed with the patient and signed. The history and physical was updated. All questions were answered. Preoperative mediacations were administered: Acetaminophen 1000mg, Celebrex 400mg, and Gabapentin 300mg. An adductor canal block was then administered by the anesthesia team in the PACU. Ken was taken back to the operating room. A spinal anesthestic was then administered. The patient was placed into the supine position on the operating room table. A nonsterile tourniquet was placed high onto the leg but only used for cementing. Posts were placed for positioning during the procedure. All bony prominences were well padded. Prophylactic antibiotics in the form of Cefazolin were administered. 1g of Tranxemic Acid was given intravenously within 30 minutes of incision. The right leg was then prepped with Chloraprep and draped in a standard fashion with impervious stockinette and extremity drape. A second prep with Chloraprep was performed prior to placing Ioband. A timeout to confirm correct identity, side and site, procedure, allergies, anesthesia, and medical concerns was performed. With the knee in some flexion, a midline incision was made overlying the knee. Full thickness skin flaps were raised once the extensor mechanism was encountered. These were raised medially and laterally. Any bleeding was controlled with electrocautery. Once the extensor mechanism was fully exposed, a medial parapatellar arthrotomy was performed in a flexed position. All bleeding from the arthrotomy and the geniculate arteries was coagulated. A medial subperiosteal peel was performed with electrocautery to the midcoronal plane. Due to the significant varus deformity the entire medial tibial plateau was exposed. The fat pad was removed while keeping the patellar tendon protected. The anterior distal femur synovium was removed for later visualization. The ACL and PCL were resected and the anterior horn of the lateral meniscus was transected. The knee was then flexed with the patella everted. Large osteophytes from the tibia were removed. Large osteophytes from the femur were removed. Using a step drill, and based on preoperative templating, the femoral canal was entered. This was done with a step drill without any difficulty. The intramedullary distal femoral cut guide was inserted, set to a 6 degree valgus cut and 9mm cut thickness. The distal femoral cut guide was then held in position and pinned. With the soft tissues protected, the distal cut was performed. This was passed over a few times to ensure a planar cut. I then turned attention to the tibia. The extramedullary guide was placed onto the leg. The distal aspect was slid medial to adjust for position of center of ankle and stay in line with shaft of the tibia. Approximately 3-5 degrees of posterior slope was kept in the proximal cutting guide. The center of the guide was aligned with the PCL. The stylus was used to assess cut thickness. The medial side, most involved side, was set for a 6mm cut which corresponded to 4mm at the low spot laterally. This was then held in position and pinned into place with 2 additional pins and a cross pin for stability. The medial and lateral collateral ligaments were protected and the cut was performed. With this completed, it was assessed and noted to be of appropriate dimensions. The guide was removed. A spacer block was inserted and the knee was brought into extension. The 8mm spacer block provided full extension, without hyperextension and with stability of both the medial and lateral collateral ligaments was assessed. The pins from the femur and the tibia were then removed. The distal femur was then sized. The anterior stylus was placed onto the lateral ridge of the anterior femur. This indicated a size 7 femur. The external rotation of the guide was adjusted to 0 degrees to match the epicondylar axis, perpendicular to [place]?s line, mostly aligned with a gap balancing techinque given the deformity of the posterior femur. The 4-in-1 cutting guide was the placed. The posterior medial femur cut was evaluated and appeared of good thickness. The spacer block was inserted underneath the cutting guide and stability was confirmed in 90 degrees of flexion. An rhonda wing was used to confirm appropriate position of the anterior cut to avoid notching. This cutting guide was ensured to be flush on the cut surface and then pinned into place with headed pins. While protecting the soft tissues, quad tendon, and collateral ligaments, the anterior and posterior cuts were performed with a saw. The central two pins were removed and the posterior and anterior chamfers were cut next. The notch-cutting guide was placed. This was pinned to lateralize the femoral component as much as possible while keeping it flush on the cut surface. This was then pinned into position. A reciprocating saw was used to make the small notch cut. A trial CR femoral component was then inserted, impacted down to the cut surfaces, and the lug holes were drilled. A provisional trial tibial component was placed and the knee was brought through range of motion. There was noted to be excellent extension and flexion. There was no significant instability. The patella was tracking without thumbs. The tibial cut surface was fully exposed. The medial and lateral menisci were removed. The tibia was then sized as a 7. The tibia had been previously marked during trialing to correspond to the center of the tibial component to help with rotation. The trial was aligned to this mack, approximately rotated to the medial 1/3rd of the tibial tubercle. The trial was pinned into place. The tibia was prepared with a reamer and a keel punch. The knee was then brought into extension and the patella was measured as 27mm. Using the patellar clamp and cut guide, this was resected to a flat surface with at least 13mm of thickness remaining. The size 41 patella fit the best. This was oriented and then clamped into position. The lugs were drilled. The trial components were removed. The final components, except for the polyethylene were opened on the back table. The periosteal and capsular tissues, especially posteriorly, around the knee were then systematically injected with a periarticular cocktail consisting of 246mg of Ropivacaine, 0.5mg of Epinephrine, 0.08mg of Clonidine, and 30mg of Ketorolac, diluted to 100cc.. The tourniquet was then inflated to 275mmHg. The knee was thoroughly irrigated with a pulse lavage and dried. On the back table, with the implants opened, the cement was mixed. 2 batches of medium viscosity cement were prepared with vacuum assistance. After the cement was ready it was placed on to the back side of the tibial component. A small amount was placed onto the posterior flange of the femur. Cement was manual pressurized and impregnated into the cut surface of the tibia. The tibial component was then inserted into the cut surface and impacted into position. Excess cement was removed and the component was reimpacted. Again, excess cement was removed and our attention was then turned to the femur. The femoral cut surface was once again dried and cement was manually impacted into the cut surface. The femoral component was lined with the lug holes and impacted. Excess cement was removed. It was ensured to be down against the cut surface. The trial polyethylene was then inserted and the leg was brought out into full extension for the duration of the cement curing process, approximately 18min. Cement was lastly manually impacted into the cut surface of the patella and the patellar button was clamped into position and held. During this process attention was turned to the gutters of the knee and for all interfaces for any excess cement. While the cement was hardening, the knee was irrigated with Surgiphor Betadine solution. It was allowed to sit in the knee for 3 minutes and then it was thoroughly irrigated with saline. After the cement had finally cured, approximately 18min, the clamp was removed from the patella and the knee was taken through range of motion. A size 8mm lasha yethylene component provided the best range of motion and stability with less than 2mm gapping with medial and lateral stress and full extension without significant hyperextension. The patella was tracking with a no-thumbs technique. The trial poly was removed and once again the knee was checked for any loose, excess, or errant cement. The poly component was then inserted into position after cleaning and drying the tibial tray. The capsule was then reapproximated with a No. 1 Vicryl at multiple locations. The capsule was finally closed with a No. 2 Stratafix, barbed suture. The tourniquet was then released and the arthrotomy appeared watertight without significant bleeding. The second dosing of 1g TXA was started. Deep tissues were then reapproximated with 0 Vicryl and 2-0 Vicryl. The skin was closed with a running 3-0 Monocryl in a subcuticular fashion. This was reinforced with skin glue. A Mepilex silver dressing was applied along with a [id number] NAZ wrap. A CryoCuff was applied. Ken was transferred to the hospital bed without difficulty an suffering no apparent complication. Ken has a good prognosis. Physical therapy will start today and without res trictions, weight-bearing as tolerated. Aspirin 81mg BID will be used for DVT prophylaxis.
--- NOTE | 2022-04-21 12:54 | W.ANESPOSTOP ---
Postoperative Evaluation Date, Time and Location Date Performed: 04/21/22 Time Performed: 12:50 Patient Location: Day Surgery Unit Vital Signs Most Recent Imported Vital Signs: Most Recent Vital Signs Temp Pulse Resp BP Pulse Ox 36.2 C L 61 16 144/69 H 96 04/21/22 12:29 04/21/22 12:29 04/21/22 12:29 04/21/22 12:29 04/21/22 12:29 Pain Score Most Recent Pain Score: Most Recent Pain Score Pain Level 0 04/21/22 12:29 Assessment Mental Status: Awake (Alert & Oriented to Patient Baseline) Airway and Respiratory Function: Patent airway with normal (patient baseline) respiratory exam Cardiovascular Function: Hemodynamically Stable Hydration Status: Adequately Hydrated Nausea & Vomiting: No Nausea or Vomiting Pain: Pt. Denies Any Pain Peripheral Nerve Block: Regional nerve block not resolved at time of post operative discharge
--- NOTE | 2022-04-21 13:33 | IN_ITS ---
Date of service: 04/21/22 Time of Service: 13:33 PT Notes Visit Reasons: Right TKA Physical Therapy Day Surgery Initial Evaluation Date: 04/21/2022 Referring Doctor: MERA Parada PT Orders: PT CONSULT: S/p Ortho surgery Precautions: WBAT on right LE with AD. LUMMI. Patient Profile/Admitting Diagnosis: Ken is an 82-year-old male with primary unilateral osteoarthritis of the right knee and is status post right total knee arthroplasty on postoperative day 0. PMHX: Medical History?(Updated 04/07/22 @ 09:56 by Molly Paris) Flexural psoriasis Impotence Surgical History?(Updated 04/06/22 @ 10:50 by Ronnie Medellin RN) History of appendectomy Hx of cardiac catheterization (02/09/11) Social History/Home Situation: Lives with in a private home with 3 steps to enter. Another flight of steps leading to the patient's bedroom. Both sets of stairs have rails on both sides. Equipment Owned/DME: [facility] Subjective: Agreeable to PT consult. Denies pain in right knee, headache, chest pain, and l ightheadedness throughout session. Objective: General Observation: Seated on bedside recliner with legs elevated. NAZ wraps to right knee. TEDS on L leg. Mental Status: Alert and oriented x 4 Pain: Denies ROM: Right Lower Extremity: Hip flexion WFL. Hip abduction WFL. Knee flexion 30 degrees to 100 degrees. Knee extension -30 degrees.. Ankle dorsiflexion WFL. Ankle plantarflexion WFL. Left Lower Extremity: Hip flexion WFL. Hip abduction WFL. Knee flexion WFL. Ankle dorsiflexion WFL. Ankle plantarflexion WFL. Strength: Right Lower Extremity: Hip flexors 4/5. Hip abductors 4/5. Knee flexors 3-/5. Knee extensors 3-/5. Ankle dorsiflexors 4/5. Ankle plantarflexors 4/5. Left Lower Extremity:Hip flexors 5/5. Hip abductors 5/5. Knee flexors 5/5. Knee extensors 5/5. Ankle dorsiflexors 5/5. Ankle plantarflexors 5/5. Sensation: Intact and light pressure bilateral lower extremities. Bed Mobility/Transfers: Supine to sit supervision Sit to stand supervision Stand to sit supervison Bed to chair supervision Gait: Able to tolerate level surface ambulation of 200 feet using front wheeled walker with standby assist with no report of pain. Step through gait pattern. No shortness of breath. No loss of balance. Needed minimal cues to slow down. Stairs: Up and down 6 x 4 inch steps and 4 x 6 inch steps of holding onto bilateral rails with step to gait pattern requiring standby assist. Balance: Static Sitting: Normal Dynamic Sitting: Normal Static Standing: Fair Dynamic Standing: Fair Special Tests: Mobility Limitations Standardized Measure [facility] 6 clicks Basic Mobility Inpatient Short Form: Raw Score: 24 CMS Score: 0% deficit Informed Consent/Education: Patient was instructed in purpose of PT consult. Education and training on initial set of exercises that can be done at home have been completed with patient and . THERA EX: DISCHARGE RECOMMENDATIONS: [] [] Home with no services [] [] Home with services [specify] [] Home with outpatient PT [] [] SNF for continued rehabilitation [] [] [facility] [] [] SNF versus LTC based on ability to participate and progress [] initiated quadriceps sets x 10, gluteal sets x 10, heel slides x 10, seated hip abduction x 10, seated hip flexion x 10, LAQs x 10, SLR x 10. Assessment: Requires use of front wheeled walker for all mobility ADL performance to maximize independence and reduce fall risk. Patient presents with clinical signs and symptoms consistent with current/admitting diagnoses that have resulted to mobility limitations, gait instability, generalized weakness, and impairment of motor control as demonstrated by the following impairment level findings: 1. Decreased strength to right knee major muscle groups 2. Impaired standing balance 3. Limitation of joint range of motion in right knee Impairments are contributing to the following functional limitations: 1. Inability to safely ambulate without assistive device 2. Increase completion time for mobility ADL performance 3. Increased fall risk Patient is assessed as a [id number] moderate complexity based on the following: History: 82-year-old male with impairment level findings, functional limitations, and past medical history as indicated above Examination: Demonstrable impairment in strength, balance, and mobility level with underlying impairments and functional limitations as documented above Presentation: Evolving Decision Makin moderate complexity Goals: N/A. PT evaluation and 1-2 treatment sessions only for functional mobility training using recommended AD and for HEP instruction. Plan of Care/Treatment Plan: N/A. PT evaluation and 1-2 treatment session only for functional mobility training using recommended AD and for HEP instruction. DISCHARGE RECOMMENDATIONS: [] Home with no services [] [] Home with services [specify] [X] Home with outpatient PT. Home when medically cleared by orthopedic surg jose enrique. Will benefit from outpatient PT services in order to maximize functional mobility outcomes and reduce fall risk. [] SNF for continued rehabilitation [] [] [facility] [] [] SNF versus LTC based on ability to participate and progress [] TREATMENT CODE/TIME: 56564 x 20 minutes, 11098 x 12 minutes beginning at 13:33 PM. Thank you for the opportunity to participate in the care of this patient. Elidia Castaneda PT, DPT, CLT [facility] [place], [place]
--- NOTE | 2022-04-21 13:44 | W.ANESPOSTOP ---
Postoperative Evaluation Date, Time and Location Date Performed: 04/21/22 Time Performed: 13:44 Patient Location: Day Surgery Unit Vital Signs Most Recent Imported Vital Signs: Most Recent Vital Signs Temp Pulse Resp BP Pulse Ox 36.4 C L 65 16 112/61 97 04/21/22 13:05 04/21/22 13:05 04/21/22 13:05 04/21/22 13:05 04/21/22 13:05 Most Recent Vital Signs Temp Pulse Resp BP Pulse Ox 36.2 C L 61 16 144/69 H 96 04/21/22 12:29 04/21/22 12:29 04/21/22 12:29 04/21/22 12:29 04/21/22 12:29 Pain Score Most Recent Pain Score: Most Recent Pain Score Pain Level 0 04/21/22 13:05 Assessment Mental Status: Awake (Alert & Oriented to Patient Baseline) Airway and Respiratory Function: Patent airway with normal (patient baseline) respiratory exam Cardiovascular Function: Hemodynamically Stable Hydration Status: Adequately Hydrated Nausea & Vomiting: No Nausea or Vomiting Pain: Pain is tolerable per patient Peripheral Nerve Block: Regional nerve block not resolved at time of post operative discharge
== END 2022-04-21 14:50 | disposition home or self-care (01) ==
PROVIDERS: PCP Family Medicine; Visit Provider Student in an Organized Health Care Education/Training Program
PROC: (CPT 27447; principal; 2022-04-21 09:45)
DX: M17.11 Unilateral primary osteoarthritis, right knee (principal); I25.10 Atherosclerotic heart disease of native coronary artery without angina pectoris; E11.9 Type 2 diabetes mellitus without complications
CPT/HCPCS: 27447; 76942; 97162; 97530; J0690; J2370; J2405

== ENCOUNTER 2022-05-04 13:24 | Outpatient (CLI) | payer OTHER, SELFPAY ==
--- NOTE | 2022-05-04 13:00 | DI.RAD_ITS ---
Exam(s) XR KNEE RT 1V EXAM: XR KNEE RT 1V CLINICAL HISTORY: f/u R TKA. TECHNIQUE: 2D digital imaging was performed. COMPARISON: CR XR KNEE RT 3V AP,LAT,LISANDRO from 04/06/2022 FINDINGS: Single lateral view Stable appearance of the components of the recently placed prosthesis. No fracture or loosening IMPRESSION: DATA REPOSITORY: RADIATION DOSE DELIVERED:
--- NOTE | 2022-05-04 13:00 | DI.RAD_ITS ---
Exam(s) XR STANDING ALIGNMENT EXAM: XR STANDING ALIGNMENT CLINICAL HISTORY: f/u R TKA. TECHNIQUE: 2D digital imaging was performed. COMPARISON: CR XR STANDING ALIGNMENT from 04/14/2022 FINDINGS: There has been interval placement of a right knee prosthesis is satisfactory position. Advanced narrowing of the medial compartment of the opposite-left knee is again noted. Also again no gilbert is asymmetric advanced narrowing of the left hip joint space + femoral head osteophytes. Lesser amount of narrowing of the right hip joint space noted. Ankles unremarkable. IMPRESSION: DATA REPOSITORY: RADIATION DOSE DELIVERED:
== END 2022-05-04 13:25 | disposition home or self-care (01) ==
LOC: DIORS 13:24
PROVIDERS: PCP Family Medicine; Referring Provider Family Medicine; Visit Provider Student in an Organized Health Care Education/Training Program
DX: M17.11 Unilateral primary osteoarthritis, right knee (principal); Z96.651 Presence of right artificial knee joint
CPT/HCPCS: 73560; 77073

== ENCOUNTER 2022-11-09 11:40 | Outpatient (CLI) | payer OTHER, SELFPAY ==
--- NOTE | 2022-11-09 11:33 | DI.RAD_ITS ---
Exam(s) XR HIP LT COMPLETE AP PELVIS EXAM: XR HIP LT COMPLETE AP PELVIS CLINICAL HISTORY: Left hip and proximal thigh pain. TECHNIQUE: 2D digital imaging was performed of the left hip. Two views were obtained. AP pelvis an d lateral left hip views were obtained. COMPARISON: No exams were available for comparison FINDINGS: BONES: No acute fracture is present. No bony destructive lesion is seen. JOINTS: No dislocation present. There are marked degenerative changes of the hips, left greater than right. In the left hip, there is loss of the joint space, subchondral sclerosis, periarticular spurr ing and subchondral cysts are seen. In the right hip, there is moderate narrowing and periarticular spurring of the joint space. SOFT TISSUE: Atherosclerosis is present. IMPRESSION: Marked degenerative changes of the hips, left greater than right. DATA REPOSITORY: RADIATION DOSE DELIVERED:
== END 2022-11-09 11:41 | disposition home or self-care (01) ==
LOC: DIORS 11:40
PROVIDERS: PCP Family Medicine; Referring Provider Family Medicine; Visit Provider Student in an Organized Health Care Education/Training Program
DX: M16.12 Unilateral primary osteoarthritis, left hip (principal); M25.552 Pain in left hip; M79.652 Pain in left thigh
CPT/HCPCS: 73502

== ENCOUNTER 2022-11-26 01:39 | Outpatient (CLI) | payer OTHER, SELFPAY ==
[2022-11-26 12:54] LABS: HCT 48.1 % (40.0-50.0); HGB 14.7 g/dL (13.5-17.5); MCH 27.1 pg (27.0-33.0); MCHC 30.6 % (32.0-36.0); MCV 89 fL (80-95); MPV 8.8 fL (8.0-11.0); Platelet Count 298 10^3/uL (130-400); RBC 5.43 10^6/uL (4.36-5.78); RDW 15.4 % (11.8-14.1); RDW-SD 49.7 fL
[2022-11-26 13:20] LABS: Anion Gap 9.4 mmol/L (3-11); BUN 20 mg/dL (7-18); CO2 27.6 mmol/L (21.0-32.0); CREATININE 1.5 mg/dL (0.70-1.30); Calcium 9.6 mg/dL (8.5-10.1); Chloride 100 mmol/L (98-107); Estimated GFR 45.62 (mL/min/1.73m2); Glucose 115 mg/dL (74-106); Potassium 4.4 mmol/L (3.5-5.1); Sodium 137 mmol/L (136-145)
== END 2022-11-26 01:40 | disposition home or self-care (01) ==
LOC: LBO 01:41
PROVIDERS: PCP Family Medicine; Visit Provider Student in an Organized Health Care Education/Training Program
DX: M16.12 Unilateral primary osteoarthritis, left hip (principal); Z01.818 Encounter for other preprocedural examination
CPT/HCPCS: 36415; 80048; 85027

== ENCOUNTER 2022-12-02 05:54 | Day surgery (SDC) | payer MEDICARE, SELFPAY ==
[2022-12-02] VITALS (8 sets, daily range): BP systolic 114–142; BP diastolic 58–77; PULSE 61–68; RESP 9–16; TEMP 36.3–36.5; O2SAT 93–99; BMI 23.8
[2022-12-02] MEDS: Acetaminophen 500 MG TAB 1000 MG PO (06:31)
[2022-12-02] MEDS: Celecoxib 200 MG CAP 400 MG PO (06:31)
[2022-12-02] MEDS: Lactated Ringers 1,000 ML 80 ML IV (06:41)
--- NOTE | 2022-12-02 06:52 | W.ANESPRE ---
General Info Date of Service Date Performed: 12/02/22 Height: 5 ft 9 in Weight: 73.1 kg Body Mass Index (BMI): 23.8 Surgical Procedure: Operation Date: 12/02/22 07:50 Proposed Procedure Side Surgeon p Hip Total Hip Anterior Left Cedric Pate MD Meds Allergies and Home Medications Allergies Allergy/AdvReac Type Severity Reaction Status Date / Time No Known Allergies Allergy Verified 12/02/22 06:07 Home Medication Medication Instructions Recorded amlodipine 10 mg tablet 10 mg PO DAILY 04/06/22 docosahexaenoic acid (dha)-epa 120 1 cap PO DAILY 04/06/22 mg-180 mg capsule (Fish Oil) garlic 1,500 mg capsule 1,500 mg PO QPC 04/06/22 metoprolol succinate 25 mg 25 mg PO DAILY 04/06/22 tablet,extended release 24 hr multivitamin 1 tab PO DAILY 04/06/22 dapagliflozin 10 mg tablet 10 mg PO DAILY 04/14/22 (Farxiga) sacubitril 49 mg-valsartan 51 mg 1 tab PO BID 04/14/22 tablet (Entresto) chlorthalidone 25 mg tablet 25 mg PO DAILY 11/26/22 acetaminophen 500 mg tablet 1,000 mg PO TID #90 tabs 12/02/22 aspirin 81 mg tablet,delayed 81 mg PO BID #60 tabs 12/02/22 release celecoxib 200 mg capsule 200 mg PO BID #60 caps 12/02/22 gabapentin 300 mg capsule 300 mg PO QHS #14 caps 12/02/22 oxycodone 5 mg tablet 5 mg PO Q4H PRN pain #20 tabs 12/02/22 pantoprazole 40 mg tablet,delayed 40 mg PO DAILY #30 tabs 12/02/22 release Current Visit Medications: Current Medications Generic Name Dose Route Start Last Admin Trade Name Freq PRN Reason Stop Dose Admin Acetaminophen 1,000 mg 12/02/22 06:00 12/02/22 06:31 Acetaminophen 500 Mg Tab PO 12/02/22 16:00 1,000 mg PREOP CAREN Administration Celecoxib 400 mg 12/02/22 06:00 12/02/22 06:31 Celecoxib 200 Mg Cap PO 12/02/22 16:00 400 mg PREOP CAREN Administration Tranexamic Acid 1,000 mg/ 60 mls @ 360 mls/hr 12/02/22 06:00 Sodium Chloride IV 12/02/22 16:00 PREOP CAREN Ringer's Solution 1,000 mls @ 80 mls/hr 12/02/22 06:00 12/02/22 06:41 IV 12/31/22 23:59 80 mls/hr INFUSION CAREN Administration Cefazolin Sodium/Dextrose 2 gm in 50 mls @ 100 mls/hr 12/02/22 06:00 Ancef Duplex IVPB 12/31/22 23:59 PREOP CAREN IV Miscellaneous Supplies 1 each 12/02/22 06:00 Iv Access IV 12/31/22 23:59 DIRECTED CAREN Sodium Chloride 0 ml 12/02/22 06:00 Normal Saline Flush 10 Ml Syr IV 12/31/22 23:59 PRN PRN Sodium Chloride 0 ml 12/02/22 06:00 Normal Saline 10 Ml Vial IJ 12/31/22 23:59 DIRECTED PRN Sterile Water 0 ml 12/02/22 06:00 Water,Injection,Sterile 10 Ml Vial IJ 12/31/22 23:59 DIRECTED PRN PFSH Active Problems Active Problems: Problem Status Onset Code Arthritis of left hip M16.12 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) 04/21/22 Z96.651 CAD (coronary artery disease) I25.10 Hypertensive disorder I10 Mixed hyperlipidemia E78.2 Type 2 diabetes mellitus E11.9 Hypothyroidism E03.9 Medical History Medical History Flexural psoriasis Impotence Medical History Comments:: bilateral hearing aids Surgical History Surgical History History of appendectomy Hx of cardiac catheterization (02/09/11) Tobacco Smoking/Tobacco Use Status: Former Tobacco Use Alcohol Alcohol Intake: never Substance Use Substance use: Never Substance use type: does not use Vital Signs and Lab Results Vital Signs Most Recent Vital Signs in EMR: Most Recent Vital Signs Temp Pulse Resp BP Pulse Ox 36.3 C L 68 16 142/77 H 99 12/02/22 06:13 12/02/22 06:13 12/02/22 06:13 12/02/22 06:13 12/02/22 06:13 Lab Results Blood Type / Crossmatch: No Data to Display Complete Blood Count: White Blood Count 6.60 10^3/uL (4.4-10.8) 11/26/22 12:20 Red Blood Count 5.43 10^6/uL (4.36-5.78) 11/26/22 12:20 Hemoglobin 14.7 g/dL (13.5-17.5) 11/26/22 12:20 Hematocrit 48.1 % (40.0-50.0) 11/26/22 12:20 Platelet Count 298 10^3/uL (130-400) 11/26/22 12:20 Complete Metabolic Panel: Sodium 137 mmol/L (136-145) 11/26/22 12:20 Potassium 4.4 mmol/L (3.5-5.1) 11/26/22 12:20 Chloride 100 mmol/L (98-107) 11/26/22 12:20 Carbon Dioxide 27.6 mmol/L (21.0-32.0) 11/26/22 12:20 BUN 20 mg/dL (7-18) H 11/26/22 12:20 Creatinine 1.5 mg/dL (0.70-1.30) H 11/26/22 12:20 Est GFR (CKD-EPI 2020) 45.62 (mL/min/1.73m2) 11/26/22 12:20 Calcium 9.6 mg/dL (8.5-10.1) 11/26/22 12:20 Glucose 115 mg/dL (74-106) H 11/26/22 12:20 Liver Function Panel: No Data to Display Coagulation Panel: No Data to Display Cardiac Panel: No Data to Display Arterial Blood Gas: No Data to Display Venous Blood Gas: No Data to Display Pancreas Panel: No Data to Display Thyroid Panel: No Data to Display Infectious Disease: No Data to Display Blood Cultures: No Data to Display Toxicology Panel: No Data to Display Imaging and Studies Imaging and Studies Study information below may be from another EMR and interpreted by another provider. Please see original notes in EMR for more complete details. Stress Test Summary: Stress ECG Conclusion 1. The resting electrocardiogram showed voltage for left ventricular hypertrophy 2. Patient exercised on the Serge protocol and completed a workload of 7.05 METS 3. Normal heart rate and blood pressure response to exercise. The patient achieved 87% of predicted heart rate for age 4. Electrocardiographically the test was notable for [address] depression in the inferior leads which returned to baseline by minute 6 of recovery 5. There were no significant dysrhythmia 6. See MPI for results Salgado Treadmill Score is 4.9 which is Moderate risk. Echocardiogram Summary: 10/21/2021: Outside hospital ECHO report: EF 60-65% Mild , 1.1cm, peak/mean gradient 19mmHg/10mmHg Moderate AR Pulmonary Pressures: 30-40 mmHg Cardiac Catheterization Summary: 02/09/2011: BMS to mid-circumflex Anesthesia Assessment and Plan Anesthesia History Personal History: No History of Anesthesia Complications Family History: No Family History of Anesthesia Complications Exercise Tolerance Exercise Tolerance: Metabolic Equivalents>4 Pertinent Negatives Pertinent Negatives: No Symptoms of GERD, No Major Pulmonary Symptoms or Complaints and No History of CVA/TIA Cardiac & Pulmonary Exam Cardiac Exam: Normal S1/S2 Heart Sounds Pulmonary Exam: Clear Bilateral Breath Sounds Implantable Cardiac Device Does patient have a Pacemaker or an ICD?: No Airway Exam Known Difficult Airway: No Mallampati Class: 3 Mouth Opening: Narrow (< 3cm) Thyromental Distance: Greater than 3 cm Neck Range of Motion: Full ROM Neck Circumference: Normal Teeth Condition: Normal Dentition and Removable Dentures/Plates Upper Airway Comments: Poor mouth opening effort this morning ASA Classification ASA Score: ASA 3 Emergency Case?: No NPO Status NPO Status: NPO Clears >2 hours, Solids >8 hours Anesthesia Plan Resuscitation Status: Full Code Anesthesia Technique: Spinal Anesthesia Airway Planned: Natural Airway Monitors Used: Standard Monitors Preoperative Comments:: Preop cocktail taken this morning.
--- NOTE | 2022-12-02 07:26 | PDOC.DSDIS_ITS ---
Date of service: 12/02/22 Time of Service: 07:26 Discharge Plan Disposition Patient Disposition: Home Condition: Good Discharge Details Reason For Visit: L KAREN Attending Provider: Cedric Pate Primary Care Provider: Ahmet Aguilar Home Meds and New Rx's Prescriptions: New celecoxib 200 mg capsule 200 mg PO BID Qty: 60 0RF aspirin 81 mg tablet,delayed release (DR/EC) 81 mg PO BID Qty: 60 0RF acetaminophen 500 mg tablet 1,000 mg PO TID Qty: 90 3RF pantoprazole 40 mg tablet,delayed release (DR/EC) 40 mg PO DAILY Qty: 30 0RF oxycodone 5 mg tablet 5 mg PO Q4H MDD 6 tabs PRN (Reason: pain) Qty: 20 0RF Continued chlorthalidone 25 mg tablet 25 mg PO DAILY amlodipine 10 mg tablet 10 mg PO DAILY Fish Oil 120-180 mg capsule 1 cap PO DAILY garlic 1,500 mg capsule 1,500 mg PO QPC metoprolol succinate 25 mg tablet extended release 24 hr 25 mg PO DAILY multivitamin Tablet 1 tab PO DAILY Farxiga 10 mg tablet 10 mg PO DAILY Entresto 49-51 mg tablet 1 tab PO BID Discontinued aspirin [Adult Aspirin Regimen] 81 mg tablet,delayed release (DR/EC) 81 mg PO DAILY acetaminophen 500 mg capsule 1,000 mg PO Q8H PRN PRNQty: 90 0RF Discharge Instructions Additional Instructions: Total Hip Discharge Instructions Activity: The most important activity is to walk. You should try to take short walks a few times a day. You have no restrictions on movement or positioning, but do not try to force what you do. You will find some stiffness and weakness with hip flexion (lifting your knee). Do not try to strengthen this too early, continue to practice walking and stairs and this will come. - Outpatient physical therapy can be helpful to help return you to a normal gait and improve your flexibility and strength. This can start around 2 weeks. For some patients, it?s not necessary. Usually this is determined at the time of discharge or at the first post-operative visit. - You should wear the GOLDEN hose on both legs for 2 weeks. Dressing: Keep the surgical dressing in place for at least one week. After the first week it may be removed and replace with light gauze and tape or nothing. It may get wet after 3 days but avoid soaking the dressing. If it gets wet, just lightly pat dry. It is important to always keep some gauze between skin folds, especially when you are sitting. Spend some time with the wound exposed when you are lying flat as the incision does wrinkle onto itself. Medications: - You should take Tylenol and an anti-inflammatory Celebrex as your primary pain control medications. If the Celebrex is too expensive or not covered, please call the office for another alternative (Advil/Ibuprofen or Naproxen/Aleve). - You have been prescribed a stronger pain medication Oxycodone for breakthrough pain, take as needed as prescribed. - You have also been prescribed a stomach acid reduction agent Pantoprozole to help reduce stomach acid and reflux. - You will be taking Aspirin 81mg twice a day for DVT prevention unless instructed otherwise. - If you have constipation you should take Colace or Miralax (both [id number]). It takes most people 3-4 days to have a bowel movement. Follow-up: 2 weeks If you have any acute concerns or questions, please do not hesitate to contact the office at [phone]. You may contact Dr. Pate with any questions after hours through the hospital at [phone] or on his cell phone at [phone]. Referrals: Cedric Pate MD [ [facility] STAFF PHYSICIAN] - Equipment/Supplies: Walker Activity:: Activity as Tolerated Shower/Bathe:: 72 hours Diet:: As Tolerated Discharge Orders Discharge Orders: Discharge Order (Routine); Ordered 12/02/22 Ordered By: Cedric Pate DS: Diagnosis Discharge Diagnosis (1) Arthritis of left hip: Status: Chronic
[2022-12-02] MEDS: ceFAZolin 2 GM/50 ML BAG IVPB (07:43)
[2022-12-02] MEDS: Bupivacaine 0.25% Pres-Free 10 ML VIAL (07:51)
[2022-12-02] MEDS: methylPREDNISolone ACETATE 80 MG/ML VIAL (08:17)
--- NOTE | 2022-12-02 08:56 | DI.RAD_ITS ---
Exam(s) XR HIP LT IN OR EXAM: XR HIP LT IN OR CLINICAL HISTORY: left total hip TECHNIQUE: 2D and realtime digital imaging was performed. CONTRAST MATERIAL: Refer to procedure report. COMPARISON: CR XR HIP LT COMPLETE AP PELVIS from 11/09/2022 FINDINGS: Fluoroscopy was provided for Dr. Pate during the performance of a left hip replacement. Please refer to the procedure report for complete details. Ka,r=3.22 mGy IMPRESSION: RADIATION DOSE DELIVERED:
--- NOTE | 2022-12-02 09:23 | W.PM.OP ---
Date of service: 12/02/22 Time of Service: 09: Operative Note Operative Note DATE OF PROCEDURE: 12/02/22 PRE-OP DIAGNOSIS: Left Hip Osteoarthritis, Left Knee Osteoarthritis POST-OP DIAGNOSIS: same PROCEDURE: Left Anterior Total Hip Arthroplasty with Intraoperative Navigation Left Knee Intra-articular Injection SURGEON: Cedric Pate [employer] STEAM: Angelo Reddy ANESTHESIA TYPE: General LMA/ETT and Spinal Refer to Anesthesia Record ESTIMATED BLOOD LOSS: 100 PATHOLOGY: none sent TOURNIQUET TIME: 0 COMPLICATIONS: None Patient was transported to: PACU Patient's condition: stable Implants: 1. Depuy [place]ascade [place]ocks Acetabular Component, 60mm 2. Depuy Acetabular Liner, [id number] 3. Depuy Corail Coxa Vara Collared Femoral Stem, Size 14 4. Depuy Altrx Ceramic Femoral Head, Size 36-2mm Indications: I have seen Ken in clinic for symptoms of hip arthritis, confirmed with radiographic findings. He has exhausted nonoperative methods and was having significant limitations in daily function and desired better function and less pain. I discussed the technical details of a hip replacement. I explained the risks of the procedure to include, but not limited to, bleeding, infection, pain, stiffness, fracture, damage to nerves and vessels, damage to muscles and tendons, loosening, instability, leg length inequality, need for repeat procedure, blood clot and cardiopulmonary demise. Despite these risks, he elected to proceed. He also has some worsening symptoms about his left knee which has known arthritis. To help treat this I did offer an injection in his left knee to be done under anesthesia at the same time of his hip replacement. Findings: There was significant signs of arthritis throughout the hip with complete loss of cartilage from the femoral head and the entirety of the acetabulum. Procedure Description: Ken was greeted in the preoperative holding area where the correct side was identified and marked. The consent was reviewed with the patient and signed. The history and physical was updated. All questions were answered. He was taken back to the operating room. A spinal anesthestic was then administered. The feet were wrapped with cast padding and Coban and then placed into the boot liners and then into the boots. Care was taken to protect the skin and make sure the heels were fully down and the boots were stable. The patient was then positioned onto the HANA table. Both legs were held in a neutral position. SCDs were applied. The patient was then slid down onto a peroneal post. Prophylactic antibiotics in the form of Cefazolin were administered. 1g of Tranxemic Acid was given intravenously within 30 minutes of incision. A timeout to confirm correct identity, side and site, procedure, allergies, anesthesia, and medical concerns was performed. ChloraPrep was utilized on the lateral aspect of the left knee to prep the left knee for injection. Using standard superolateral approach, the knee was injected with 5 cc of 0.25% bupivacaine and 80 mg of Depo-Medrol. A Band-Aid was applied. Then, the left leg was then prepped with Chloraprep and draped in a standard fashion. A second prep with Chloraprep was performed prior to placement of a shower-curtain type drape with Iodine impregnated skin protection. An obliquely oriented incision was made starting lateral to the ASIS and running distal over the Tensor Fascia Lauren (TFL) muscle belly toward the fibular head, approximately 10cm. The skin and soft tissue was dissected sharply, through Kenyon?s fascia, and to the fascia of the TFL. At this point, there is no to be some movement of the leg muscles. While his vital signs still remained quite stable there is concern about the set up of the spinal. This was monitored for any improvement with anesthesia. With the fascia and superior border of the IT band identified, the fascia was incised with a new knife just above any perforators from the IT band. The TFL muscle belly was bluntly dissected away from the fascia and moved laterally. The fat between TFL and rectus was identified to ensure the dissection was not within the TFL. Blunt dissection created space between abductors and the capsule and retractor was placed over the lateral femoral neck. The fibers of the rectus femoris tendon were identified and these were freed from the anterior capsule. A second cobra retractor was placed around the medial femoral neck. The TFL was further retracted laterally to show the deep fascia. At this point, there was still some motion and the decision was made to proceed with intubation to better treat his pain and protect his airway. Careful dissection through this layer identified three main crossing vessels of the lateral femoral circumflex. These were cauterized in multiple locations and then cut without any noticeable bleeding. The TFL was further released bluntly from the deep fascia to expose anterior hip capsule and fat The Parviz orthopaedic retractor was then placed beneath the TFL and against sartorius and medial soft tissues to protect and retract the soft tissues. A T-capsulotomy was then performed starting at the superior lateral acetabulum and moving distally to the intertrochanteric ridge. These capsular flaps were tagged with a No. 1 Ethibond and elevated from within. The capsular flaps were released to the shoulder of the lateral neck and to the lesser trochanter to give excellent visualization of the proximal femur. A neck osteotomy was performed using an oscillating saw based on preoperative templates. This cut started in the shoulder and of the lateral neck and exited medially. The saw was at all times directed medially to avoid injury to the greater trochanter. Gross traction was applied to the leg and the osteotomy opened. The femoral head was removed with a corkscrew, making sure to protect the TFL on its exit. Traction was released after head removal. This was measured on the back table to determine the starting reamer size. Portions of the rectus obscuring visualization were minimally elevated off the superior acetabulum. An anterior retractor was placed over the anterior wall between capsule and labrum and attached to the Gripper retraction system. The femur was rotated to 90 degrees and medial capsule was fully released until the lesser trochanter was palpable and visible; the femur was returned to 30 degrees. A posterior retractor was placed similarly between capsule and labrum. This provided excellent visualization. The contents of the cotyloid fossa were removed with electrocautery and the labrum was removed with a knife. There was a notable floor osteophyte. There was significant chondromalacia of the acetabulum with complete loss of cartilage throughout. Acetabular reaming began with a 56mm reamer. This first reaming was directed anterior to posterior and medial to get down to the true floor. This was inspected and reamed until the true floor was reached. The anterior retractor was then released and entry and exit was provided by traction on the capsular flaps. I then reamed sequentially up to a 60mm reamer where good fit was obtained. The larger reamers were oriented based on anatomical reference of the anterior and lateral morris to ensure proper abduction and anteversion. Positioning and size was confirmed with the fluoroscopy. A 60mm Depuy [place] acetabular component was selected. The acetabulum was reamed around the periphery with the selected acetabular size to prevent a rim fit. The deep tissues were irrigated. The acetabular component was then impacted in a position of about 40-45 degrees of abduction and 15-20 degrees of anteversion, using the patient?s anatomy as the ultimate landmark. Fluoroscopy was used to confirm this. There was excellent associate principal of the acetabular component and the inserting handle was removed. The cup was once again inspected for appropriate positioning based on his anatomy as well as looking through the central hole. The acetabular liner, Depuy [id number] polyethylene liner, was inserted and lined up with the tines of the acetabular component. There was no soft tissue interposition. The liner was then impacted into position and confirmed to be well-seated. A portion of the rogelio-articular cocktail was then injected around the acetabulum into the capsule and periosteum. This cocktail consisted of 123mg of Ropivacaine, 0.25mg of Epinephrine, 0.04mg of Clonidine, and 15mg of Ketorolac, diluted to 50cc. The leg was rotated to 120 degrees. Any remaining medial capsule was released until the lesser trochanter was easily palpable. A retractor was placed medially. The lateral capsule was further released into the shoulder to allow access to the greater trochanter. A Ty retractor was placed over the greater trochanter which allowed the trochanter to flip in front of the capsule for excellent exposure. The leg was brought down into maximal extension and 20 degrees of adduction while ensuring there was no impingement on the acetabulum. Any remnant capsule within the trochanter was released. Piriformis and obturator externis were identified and protected. There was excellent access to the proximal femur. The lateral neck remnant was removed with a rongeur. A blunt canal probe was used to identify the canal and trajectory for later broaching. A box osteotome initiated the broach course. A small curved rasp and a curved curette were used to work laterally. Broaching then began with a size 8 Corail broach. This was inserted manually around the trochanter and into the canal before mallet blows. The broach was seated to a few millimeters below the cut level based on the neck cut and the preoperative template. Sequential broaching was continued with the 100e.comse pneumatic broaching device until a tight fit was obtained with good rotational control of the femur. A trial standard 125 degree neck was inserted along with a +1.5 trial head. The leg was brought out of extension and adduction and then reduced with traction and internal rotation. The leg was stable anteriorly in a position of 30 degrees of extension and 90 degrees of external rotation. Fluoroscopy was used to ensure there was no fracture and the stem was seated well. Leg lengths were checked with an AP pelvis and pelvic reference points. Venvy Interactive Video navigation system was used to confirm appropriate positioning and leg length and offset. This seemed to slightly under recreate the offset but added about 7 mm leg length. Goal leg lengthening was 5 to 6 mm. To obtain this, going to a coxa vara neck with a -2 mm head would appropriately reproduce the desired anatomy. Once content with the desired offset and leg lengths, the leg was brought back into extension, external rotation and adduction. The periosteum and surrounding tissue was injected with remaining portion of the rogelio-articular cocktail. The proximal femur was irrigated as well as the deep tissues. The Depuy Corail coxa vara collared stem, size 14, was then manually inserted into the proximal femur making sure to control rotation. It was then malleted into position with light blows, giving breaks to allow bone expansion and decrease risk of fracture. The selected Depuy Altrx Ceramic Head, size 36 -2mm, was then placed onto the clean and dry trunnion and secured with impaction onto the tapered fit. The leg was brought back out of extension and adduction and reduced with traction and internal rotation. Stability was confirmed with no shuck at 90 degrees of external rotation and 30 degrees of extension. No impingement through range of motion arc. Final x-ray images were obtained with fluoroscopy to confirm adequate positioning and no intraoperative fracture. The deep tissues were thoroughly irrigated with Surgiphor, betadine solution. This was allowed to sit in the wound for 3 minutes before being thoroughly irrigated out with normal saline. The capsule was then reapproximated with the previously placed Ethibond sutures. The TFL fascia was finally closed with a No. 2 Stratafix, barbed suture. Deep tissues were then reapproximated with 0 Vicryl and a running 2-0 Vicryl. The skin was closed with a running 4-0 Monocryl in a subcuticular fashion. This was reinforced with skin glue. A Mepilex silver dressing was applied. At the end of the case, all counts were correct. Ken was transferred to the hospital bed without difficulty and suffering no apparent complication. He has a good prognosis. Physical therapy will start today and without restrictions, weight-bearing as tolerated. Aspirin 81mg BID will be used for DVT prophylaxis.
--- NOTE | 2022-12-02 11:28 | W.ANESPOSTOP ---
Postoperative Evaluation Date, Time and Location Date Performed: 12/02/22 Time Performed: 11:28 Patient Location: Day Surgery Unit Vital Signs Most Recent Imported Vital Signs: Most Recent Vital Signs Temp Pulse Resp BP Pulse Ox 36.3 C L 61 16 123/65 95 12/02/22 10:38 12/02/22 10:38 12/02/22 10:38 12/02/22 10:38 12/02/22 10:38 Pain Score Most Recent Pain Score: Most Recent Pain Score Pain Level 0 12/02/22 10:38 Assessment Mental Status: Awake (Alert & Oriented to Patient Baseline) Airway and Respiratory Function: Patent airway with normal (patient baseline) respiratory exam Cardiovascular Function: Hemodynamically Stable Hydration Status: Adequately Hydrated Nausea & Vomiting: No Nausea or Vomiting Pain: Pt. Denies Any Pain Peripheral Nerve Block: Patient did not receive a nerve block
--- NOTE | 2022-12-02 12:50 | IN_ITS ---
Date of service: 12/02/22 Time of Service: 11:00 PT Notes Visit Reasons: L KAREN Inpatient Physical Therapy Evaluation Date: 12/02/22 Referring Doctor: Cedric Pate PT Orders: PT CONSULT: S/P L THR Precautions: Standard Patient Profile/Admitting Diagnosis: 82 y.o. male S/P L THR receiving evaluation for evaluation and education for discharge home with PMHX: Per EMR Social History/Home Situation: Lives in a 2 story home with his . Full flight of stairs to bedroom, with one rail. 3 stairs to enter home, bilateral rails. Current Functional Limitations: RW for ambulation, supervision for functional transfers Equipment Owned/DME: RW, SPC Subjective: No pain, feeling confident with ambulation post treatment Objective: General Observation: In no distress, A&O x 3, lying in hospital bed comfortabley Pain: None Vital Signs: Stable per nursing ROM: Right Lower Extremity: WNL Left Lower Extremity: hip flex 90 deg, abd 30 deg, knee and ankle WNL Strength: Right Upper Extremity: WNL Left Upper Extremity: grossly 3+/5 throughout michael due to old RC injury, otherwi se 5/5 Right Lower Extremity: 5/5 throughout Left Lower Extremity: Demonstrated active control, resistance deferred Sensation: WNL Bed Mobility/Transfers: Supervision with all supine to EOB, sit to stand, stand to sit, and bed to chair transfers. Gait: Supervision RW, steady and safe x 100 ft Stair ambulation with bilateral rail, up with good, down with bad, step to pattern x 3 steps x 3 Balance: Static Sitting: Good Dynamic Sitting: Good Static Standing: Good with RW Dynamic Standing: Good with RW Patient education: Skilled instruction in use of RW, proper set up Step to stair ambulation with rail use, SPC and rail with a one rail stair case Hand use for getting in and out of chair Review HEP, heel slides, quad sets, glutes sets, provided illustrated handout Informed Consent/Education: Patient instructed in purpose of PT consult and plan of care. Assessment: Patient is a 82 year old male referred to physical therapy services with the diagnosis of S/P R THR, being seen for safety for same day discharge. Patient presents with clinical signs and symptoms consistent with post op condition, and demonstrates safe ambulation, assistive device use, stair ambulation technique, and HEP for safe discharge. Advised sleeping set up on main floor may be safe at this time. Patient is [place] a [place] 90838 complexity based on the following: History: See comorbidities Examination: Gait deficits, appropriate ROM and strength deficits post op Presentation: stable Decision Making: Easy Plan of Care/Treatment Plan: Discharge home with , PT HEP, ortho follow up in 3 weeks TREATMENT CODE/TIME: 94207, 30 min direct and total
== END 2022-12-02 12:27 | disposition home or self-care (01) ==
PROVIDERS: PCP Family Medicine; Visit Provider Student in an Organized Health Care Education/Training Program
PROC: (CPT 27130; principal; 2022-12-02 07:30)
DX: M16.12 Unilateral primary osteoarthritis, left hip (principal)
CPT/HCPCS: 20985; 27130; C1776; 73501; J0690; J1040; J1100; J2370; J2405

== ENCOUNTER 2022-12-14 11:03 | Outpatient (CLI) | payer MEDICARE, SELFPAY ==
--- NOTE | 2022-12-14 10:00 | DI.RAD_ITS ---
Exam(s) XR HIP LT COMPLETE AP PELVIS EXAM: XR HIP LT COMPLETE AP PELVIS INDICATION: 1ST POST OP L KAREN. COMPARISON: CR XR HIP LT COMPLETE AP PELVIS from 11/09/2022 XA XR HIP LT IN OR from 12/02/2022 TECHNIQUE: 2D digital imaging was performed. Two views. FINDINGS: There has been no change in the alignment of the left hip prosthesis. There are no suspicious bony l ucencies. Degenerative changes are again noted in the right hip. Vascular calcifications are present. DATA REPOSITORY: RADIATION DOSE DELIVERED:
== END 2022-12-14 11:04 | disposition home or self-care (01) ==
LOC: DIORS 11:03
PROVIDERS: PCP Family Medicine; Referring Provider Family Medicine; Visit Provider Student in an Organized Health Care Education/Training Program
DX: Z96.642 Presence of left artificial hip joint (principal); Z47.1 Aftercare following joint replacement surgery; M17.12 Unilateral primary osteoarthritis, left knee
CPT/HCPCS: 73502

== ENCOUNTER → 2023-01-11 09:42 | Outpatient (BNVA) | payer MEDICARE, SELFPAY | PROVIDERS: PCP Family Medicine; Referring Provider Family Medicine; Visit Provider Student in an Organized Health Care Education/Training Program | DX: M17.12 Unilateral primary osteoarthritis, left knee (principal); Z96.642 Presence of left artificial hip joint; Z47.1 Aftercare following joint replacement surgery ==

== ENCOUNTER 2023-03-05 01:44 | Outpatient (CLI) | payer MEDICARE, SELFPAY ==
[2023-03-05 11:27] LABS: HCT 42.9 % (40.0-50.0); HGB 13.4 g/dL (13.5-17.5); MCH 27.6 pg (27.0-33.0); MCHC 31.2 % (32.0-36.0); MCV 88 fL (80-95); MPV 9.4 fL (8.0-11.0); Platelet Count 289 10^3/uL (130-400); RBC 4.86 10^6/uL (4.36-5.78); RDW 15.2 % (11.8-14.1); RDW-SD 49.1 fL; WBC 6.55 10^3/uL (4.4-10.8)
[2023-03-05 12:04] LABS: Anion Gap 6.8 mmol/L (3-11); BUN 44 mg/dL (7-18); CO2 29.2 mmol/L (21.0-32.0); CREATININE 1.7 mg/dL (0.70-1.30); Calcium 9.2 mg/dL (8.5-10.1); Chloride 103 mmol/L (98-107); Estimated GFR 39.02 (mL/min/1.73m2); Glucose 114 mg/dL (74-106); Sodium 139 mmol/L (136-145)
== END 2023-03-05 01:45 | disposition home or self-care (01) ==
LOC: LBO 01:45
PROVIDERS: PCP Family Medicine; Visit Provider Student in an Organized Health Care Education/Training Program
DX: M25.562 Pain in left knee (principal); M17.12 Unilateral primary osteoarthritis, left knee; Z01.818 Encounter for other preprocedural examination; Z01.812 Encounter for preprocedural laboratory examination
CPT/HCPCS: 36415; 80048; 85027

== ENCOUNTER 2023-03-05 10:45 | Outpatient (CLI) | payer MEDICARE, SELFPAY ==
--- NOTE | 2023-03-05 10:00 | DI.RAD_ITS ---
Exam(s) XR KNEE LT 1V EXAM: XR KNEE LT 1V CLINICAL HISTORY: L TKR planning. TECHNIQUE: 2D digital imaging was performed. COMPARISON: CR XR KNEE RT 1V from 05/04/2022 FINDINGS: Single lateral view There is advanced narrowing of joint space is seen on the lateral view. No obvious fracture. IMPRESSION: As above. DATA REPOSITORY: RADIATION DOSE DELIVERED:
--- NOTE | 2023-03-05 10:00 | DI.RAD_ITS ---
Exam(s) XR STANDING ALIGNMENT EXAM: XR STANDING ALIGNMENT CLINICAL HISTORY: L TKR planning. TECHNIQUE: 2D digital imaging was performed. COMPARISON: CR XR STANDING ALIGNMENT from 05/04/2022 FINDINGS: 3 views Again noted is a stable appearing right knee prosthesis. There is now a left hip prosthesis also glenna dent, not previously present. There is advanced degenerative change in the mid left knee again noted , unchanged. There is moderate uniform narrowing of the right hip joint space. Also marginal osteop hytes in the right femoral head again noted. Bone density normal. No osseous lesions. Ankles unrem arkable. IMPRESSION: As above. DATA REPOSITORY: RADIATION DOSE DELIVERED:
== END 2023-03-05 10:46 | disposition home or self-care (01) ==
LOC: DIORS 10:46
PROVIDERS: PCP Family Medicine; Referring Provider Family Medicine; Visit Provider Physician Assistant
DX: M17.12 Unilateral primary osteoarthritis, left knee (principal); Z01.818 Encounter for other preprocedural examination
CPT/HCPCS: 73560; 77073

== ENCOUNTER 2023-03-10 07:03 | Day surgery (SDC) | payer MEDICARE, SELFPAY ==
[2023-03-10] VITALS (10 sets, daily range): BP systolic 97–146; BP diastolic 37–81; PULSE 56–69; RESP 10–18; TEMP 36.2–36.5; O2SAT 96–100; BMI 23.5
[2023-03-10] MEDS: Celecoxib 200 MG CAP 400 MG PO (07:45)
[2023-03-10] MEDS: Acetaminophen 500 MG TAB 1000 MG PO (07:46)
[2023-03-10] MEDS: Gabapentin 300 MG CAP PO (07:46)
[2023-03-10] MEDS: Lactated Ringers 1,000 ML 80 ML IV (07:50)
--- NOTE | 2023-03-10 08:29 | ANES.PREOP_ITS ---
General Info Date of Service Date Performed: 03/10/23 Height: 5 ft 9 in Weight: 72.3 kg Body Mass Index (BMI): 23.5 Surgical Procedure: Operation Date: 03/10/23 09:40 Proposed Procedure Side Surgeon p Knee Total Arthroplasty w/OrthAlign, Cemented CR Left Cedric Pate MD Meds Allergies and Home Medications Allergies Allergy/AdvReac Type Severity Reaction Status Date / Time No Known Allergies Allergy Verified 03/10/23 07:38 Home Medication Medication Instructions Recorded amlodipine 10 mg tablet 10 mg PO DAILY 04/06/22 docosahexaenoic acid (dha)-epa 120 1 cap PO DAILY 04/06/22 mg-180 mg capsule (Fish Oil) garlic 1,500 mg capsule 1,500 mg PO QPC 04/06/22 metoprolol succinate 25 mg 25 mg PO DAILY 04/06/22 tablet,extended release 24 hr multivitamin 1 tab PO DAILY 04/06/22 dapagliflozin 10 mg tablet 10 mg PO DAILY 04/14/22 (Farxiga) sacubitril 49 mg-valsartan 51 mg 1 tab PO BID 04/14/22 tablet (Entresto) chlorthalidone 25 mg tablet 25 mg PO DAILY 11/26/22 acetaminophen 500 mg tablet 1,000 mg PO TID #90 tabs 12/02/22 Current Visit Medications: Current Medications Generic Name Dose Route Start Last Admin Trade Name Freq PRN Reason Stop Dose Admin Acetaminophen 1,000 mg 03/10/23 06:00 03/10/23 07:46 Acetaminophen 500 Mg Tab PO 03/10/23 16:00 1,000 mg PREOP CAREN Administration Acetaminophen 1,000 mg 03/10/23 07:26 Acetaminophen 500 Mg Tab PO 04/09/23 07:25 TID PRN PRN Analgesia Celecoxib 400 mg 03/10/23 06:00 03/10/23 07:45 Celecoxib 200 Mg Cap PO 03/10/23 16:00 400 mg PREOP CAREN Administration Docusate Sodium 100 mg 03/10/23 07:26 Docusate Sodium 100 Mg Cap PO 04/09/23 07:25 BID PRN PRN Constipation Gabapentin 300 mg 03/10/23 06:00 03/10/23 07:46 Gabapentin 300 Mg Cap PO 03/10/23 16:00 300 mg PREOP CAREN Administration Tranexamic Acid 1,000 mg/ 60 mls @ 360 mls/hr 03/10/23 06:00 Sodium Chloride IVPB 03/10/23 16:00 PREOP CAREN Ringer's Solution 1,000 mls @ 80 mls/hr 03/10/23 06:00 03/10/23 07:50 IV 03/10/23 23:59 80 mls/hr INFUSION CAREN Administration Cefazolin Sodium/Dextrose 2 gm in 50 mls @ 100 mls/hr 03/10/23 06:00 Ancef Duplex IVPB 03/10/23 23:59 PREOP CAREN IV Miscellaneous Supplies 1 each 03/10/23 06:00 Iv Access IV 03/10/23 23:59 DIRECTED CAREN Ondansetron HCl 4 mg 03/10/23 07:26 Ondansetron 4 Mg/2 Ml Vial IVP 04/09/23 07:25 Q6H PRN PRN Nausea Oxycodone HCl 0 mg 03/10/23 07:26 Oxycodone 5 Mg Tab PO 04/09/23 07:25 Q3H PRN PRN Pain Polyethylene Glycol 17 gm 03/10/23 07:26 Polyethylene Glycol 3350 17 Gm Packet PO 04/09/23 07:25 BID PRN PRN Constipation Sodium Chloride 0 ml 03/10/23 06:00 Normal Saline Flush 10 Ml Syr IV 03/10/23 23:59 PRN PRN Sodium Chloride 0 ml 03/10/23 06:00 Normal Saline 10 Ml Vial IJ 03/10/23 23:59 DIRECTED PRN Sterile Water 0 ml 03/10/23 06:00 Water,Injection,Sterile 10 Ml Vial IJ 03/10/23 23:59 DIRECTED PRN PFSH Active Problems Active Problems: Problem Status Onset Code 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/02/22 Z96.642 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) 04/21/22 Z96.651 CAD (coronary artery disease) I25.10 Hypertensive disorder I10 Mixed hyperlipidemia E78.2 Type 2 diabetes mellitus E11.9 Hypothyroidism E03.9 Medical History Medical History Flexural psoriasis Impotence Medical History Comments:: bilateral hearing aids Surgical History Surgical History (Updated 03/10/23 @ 08:34 by Erick White CRNA) History of appendectomy Hx of cardiac catheterization (02/09/11) 1 stent placed Tobacco Smoking/Tobacco Use Status: Former Tobacco Use Alcohol Alcohol Intake: never Substance Use Substance use: Never Substance use type: does not use Vital Signs and Lab Results Vital Signs Most Recent Vital Signs in EMR: Most Recent Vital Signs Temp Pulse Resp BP Pulse Ox 36.5 C 66 16 146/66 H 98 03/10/23 07:06 03/10/23 07:06 03/10/23 07:06 03/10/23 07:06 03/10/23 07:06 Lab Results Blood Type / Crossmatch: No Data to Display Complete Blood Count: White Blood Count 6.55 10^3/uL (4.4-10.8) 03/05/23 11:05 Red Blood Count 4.86 10^6/uL (4.36-5.78) 03/05/23 11:05 Hemoglobin 13.4 g/dL (13.5-17.5) L 03/05/23 11:05 Hematocrit 42.9 % (40.0-50.0) 03/05/23 11:05 Platelet Count 289 10^3/uL (130-400) 03/05/23 11:05 Complete Metabolic Panel: Sodium 139 mmol/L (136-145) 03/05/23 11:05 Potassium 4.0 mmol/L (3.5-5.1) 03/05/23 11:05 Chloride 103 mmol/L (98-107) 03/05/23 11:05 Carbon Dioxide 29.2 mmol/L (21.0-32.0) 03/05/23 11:05 BUN 44 mg/dL (7-18) H 03/05/23 11:05 Creatinine 1.7 mg/dL (0.70-1.30) H 03/05/23 11:05 Est GFR (CKD-EPI 2020) 39.02 (mL/min/1.73m2) 03/05/23 11:05 Calcium 9.2 mg/dL (8.5-10.1) 03/05/23 11:05 Glucose 114 mg/dL (74-106) H 03/05/23 11:05 Liver Function Panel: No Data to Display Coagulation Panel: No Data to Display Cardiac Panel: No Data to Display Arterial Blood Gas: No Data to Display Venous Blood Gas: No Data to Display Pancreas Panel: No Data to Display Thyroid Panel: No Data to Display Infectious Disease: No Data to Display Blood Cultures: No Data to Display Toxicology Panel: No Data to Display Imaging and Studies Imaging and Studies Study information below may be from another EMR and interpreted by another provider. Please see original notes in EMR for more complete details. Stress Test Summary: Stress ECG Conclusion 1. The resting electrocardiogram showed voltage for left ventricular hypertrophy 2. Patient exercised on the Serge protocol and completed a workload of 7.05 METS 3. Normal heart rate and blood pressure response to exercise. The patient achieved 87% of predicted heart rate for age 4. Electrocardiographically the test was notable for 2 to [address] depression in the inferior leads which returned to baseline by minute 6 of recovery 5. There were no significant dysrhythmia 6. See MPI for results Salgado Treadmill Score is 4.9 which is Moderate risk. MPI Conclusion There is no evidence of myocardial ischemia. The inferobasal segment appears p redominantly infarcted, no redistribution EF 36% with inferobasal wall motion abnormality Echocardiogram Summary: 10/21/2021: Outside hospital ECHO report: EF 60-65% Mild , 1.1cm, peak/mean gradient 19mmHg/10mmHg Moderate AR Pulmonary Pressures: 30-40 mmHg Cardiac Catheterization Summary: 02/09/2011: BMS to mid-circumflex Anesthesia Assessment and Plan Anesthesia History Personal History: No History of Anesthesia Complications Family History: No Family History of Anesthesia Complications Exercise Tolerance Exercise Tolerance: Metabolic Equivalents>4 Pertinent Negatives Pertinent Negatives: No Symptoms of GERD and No Major Pulmonary Symptoms or Complaints Cardiac & Pulmonary Exam Cardiac Exam: Normal S1/S2 Heart Sounds Pulmonary Exam: Clear Bilateral Breath Sounds Implantable Cardiac Device Does patient have a Pacemaker or an ICD?: No Airway Exam Known Difficult Airway: No Mallampati Class: 3 Mouth Opening: Narrow (< 3cm) Thyromental Distance: Greater than 3 cm Neck Range of Motion: Full ROM Neck Circumference: Normal Teeth Condition: Normal Dentition and Removable Dentures/Plates Upper Airway Comments: Poor mouth opening effort this morning ASA Classification ASA Score: ASA 3 Emergency Case?: No NPO Status NPO Status: NPO Clears >2 hours, Solids >8 hours Anesthesia Plan Resuscitation Status: Full Code Anesthesia Technique: Spinal Anesthesia Airway Planned: Natural Airway Pain Management: Surgeon and patient request nerve block Monitors Used: Standard Monitors
--- NOTE | 2023-03-10 09:34 | ANES.NERVE_ITS ---
Nerve Block Single Injection Procedure Date and Time Date Performed: 03/10/23 Procedure Start: 09:11 Location Where Procedure Performed Procedure Location: Day Surgery Unit Reason Performed: Postoperative Analgesia Requesting Provider: Cedric Pate Timeout Performed Timeout Performed: Yes Monitoring Used ECG, Blood Pressure and SpO2 Sterility Sterility: Hand Hygiene, Surgical Cap, Surgical Mask, Sterile Gloves and Chlorhexidine Sedation Given During Procedure Sedation Given (Indicate Dose Given): No Sedation given Patient Mental Status Patient Mental Status: Awake Nerve Block 1st Nerve Block: Laterality: Left Block Type: Adductor Canal Ultrasound Image Saved?: Yes Needle / Catheter Used: 100mm SonoPlex II Local Anesthetic Bolus (Indicate Dose Given): Lidocaine used for local infiltration of skin, Injected in 3-5ml increments after negative blood aspiration and Bupivacaine 0.25% Dose:: 15 ml Additives (Indicate Dose Given): None Ultrasound: Sterile probe cover and gel used Nerve Stimulator: Supplement to Ultrasound use and No twitch or parasth esia noted < 0.5 mA Paresthesia: None Procedure Tolerated: No Complications and Patient tolerated well Procedure Outcome: Successful Performed By: Ahmet Avery
[2023-03-10] MEDS: ceFAZolin 2 GM/50 ML BAG IVPB (09:55)
--- NOTE | 2023-03-10 12:52 | PDOC.DSDIS_ITS ---
Date of service: 03/10/23 Time of Service: 12:52 Discharge Plan Disposition Patient Disposition: Home Condition: Good Discharge Details Reason For Visit: L TKR Attending Provider: Cedric Pate Primary Care Provider: Ahmet Aguilar Home Meds and New Rx's Prescriptions: New celecoxib 200 mg capsule 200 mg PO BID Qty: 60 0RF aspirin 81 mg tablet,delayed release (DR/EC) 81 mg PO BID Qty: 60 0RF acetaminophen 500 mg tablet 1,000 mg PO TID Qty: 90 3RF pantoprazole 40 mg tablet,delayed release (DR/EC) 40 mg PO DAILY Qty: 30 0RF gabapentin 300 mg capsule 300 mg PO QHS Qty: 14 0RF oxycodone 5 mg tablet 5 mg PO Q4H MDD 6 tabs PRN (Reason: pain) Qty: 20 0RF Continued chlorthalidone 25 mg tablet 25 mg PO DAILY amlodipine 10 mg tablet 10 mg PO DAILY Fish Oil 120-180 mg capsule 1 cap PO DAILY garlic 1,500 mg capsule 1,500 mg PO QPC metoprolol succinate 25 mg tablet extended release 24 hr 25 mg PO DAILY multivitamin Tablet 1 tab PO DAILY Farxiga 10 mg tablet 10 mg PO DAILY Entresto 49-51 mg tablet 1 tab PO BID Discontinued acetaminophen 500 mg tablet 1,000 mg PO TID Qty: 90 3RF Discharge Instructions Additional Instructions: Total Knee Discharge Instructions Activity: The most important activity is to walk and to work on gentle motion (both flexion and extension). You should try to take short walks a few times a day. It is important that when resting you work on keeping the knee straight. Avoid putting a pillow behind the knee as this will encourage flexion. Work on range of motion exercises as provided by Physical Therapy. - Start outpatient physical therapy within 2 weeks. - You should wear the GOLDEN hose on both legs for 2 weeks. You may remove these at night. You may also use any compression sock in place of the GOLDEN hose. - Utilize [employer] to review exercises, see videos on exercises and obtain basic information pertaining to your surgery and your recovery. Dressing: Remove the Wayne wrap by 2 days after your surgery and put on the GOLDEN stocking given to you from the hospital. Keep the surgical dressing (underneath the WAYNE wrap) in place for at least one week. After the first week it may be removed and replaced with light gauze and tape or nothing. The wound and dressing may get wet after 3 days but avoid soaking the dressing or otherwise it will need to be changed. Many people prefer covering the dressing with cling wrap (saran wrap) to minimize it from getting soaked. If it gets wet, just pat dry. If it starts to peel off then it will need to be changed. Medications: - You should take Tylenol and anti-inflammatory Celebrex as your primary pain control medications. If the Celebrex is too expensive or not covered, please call the office for another alternative (Advil/Ibuprofen or Naproxen/Aleve) - You have been prescribed a stronger pain medication Oxycodone for breakthrough pain, take as needed as prescribed. - You have also been prescribed a stomach acid reduction agent Pantoprozole to help reduce stomach acid and reflux. - You have been prescribed Gabapentin to take at night for restlessness and nerve pain. - You will be taking Aspirin 81mg twice a day for DVT prevention unless instructed otherwise. - If you have constipation you should take Colace or Miralax (both [id number]). It takes most people 3-4 days to have a bowel movement. Follow-up: 2 weeks If you have any acute concerns or questions, please do not hesitate to contact the office at [phone]. You may contact Dr. Pate with any questions after hours through the hospital at [phone] or on his cell phone at [phone]. Referrals: Cedric Pate MD [ [facility] STAFF PHYSICIAN] - Equipment/Supplies: Walker Activity:: Activity as Tolerated Shower/Bathe:: 72 hours Diet:: As Tolerated Discharge Orders Discharge Orders: Discharge Order (Routine); Ordered 03/10/23 Ordered By: Cedric Pate DS: Diagnosis Discharge Diagnosis (1) Left knee DJD: Status: Acute
--- NOTE | 2023-03-10 14:09 | W.ANESPOSTOP ---
Postoperative Evaluation Date, Time and Location Date Performed: 03/10/23 Time Performed: 14:09 Patient Location: Day Surgery Unit Vital Signs Most Recent Imported Vital Signs: Most Recent Vital Signs Temp Pulse Resp BP Pulse Ox 36.5 C 65 18 123/55 L 96 03/10/23 12:40 03/10/23 12:40 03/10/23 12:40 03/10/23 12:40 03/10/23 12:40 Pain Score Most Recent Pain Score: Most Recent Pain Score Pain Level 0 03/10/23 12:40 Assessment Mental Status: Awake (Alert & Oriented to Patient Baseline) Airway and Respiratory Function: Patent airway with normal (patient baseline) respiratory exam Cardiovascular Function: Hemodynamically Stable Hydration Status: Adequately Hydrated Nausea & Vomiting: No Nausea or Vomiting Pain: Pt. Denies Any Pain Peripheral Nerve Block: Regional nerve block not resolved at time of post operative discharge
--- NOTE | 2023-03-10 15:26 | PT.INIE ---
Date of service: 03/10/23 Time of Service: 14:11 PT Notes Visit Reasons: L TKR Physical Therapy Day Surgery Initial Evaluation Date: 03/11/2023 Referring Doctor: MERA Delaney PT Orders: PT CONSULT: S/p Ortho surgery Precautions: WBAT on the left LE with AD Patient Profile/Admitting Diagnosis: Ken is an 83-year-old male with degenerative joint disease of the left knee and is status post left total knee arthroplasty on postoperative day 0. PMHX: Medical History? Flexural psoriasis Impotence Surgical History? History of appendectomy Hx of cardiac catheterization (02/09/11) Social History/Home Situation: Lives with in a private home with 2 steps to enter with rails on both sides. Has 10-12 steps to the second floor of the house where the bedroom is. Equipment Owned/DME: None Subjective: Reports 1/10 pain in the left knee with movement. Denies headache, chest pain, and lightheadedness throughout session. Objective: General Observation: Resting in bed. NAZ wrap to left LE. TEDs to right leg. Cryo/Cuff to left knee. Mental Status: Alert and oriented x4 Pain: 1/10 in the left knee at rest and with movement ROM: Right Lower Extremity: Hip flexion WFL. Hip abduction WFL. Knee flexion WFL. Ankle dorsiflexion WFL. Ankle plantarflexion WFL. Left Lower Extremity: Hip flexion WFL. Hip abduction WFL. Knee flexion 0 to 90 degrees. Ankle dorsiflexion WFL. Ankle plantarflexion WFL. Strength: Right Lower Extremity: Hip flexors 5/5. Hip abductors 5/5. Knee flexors 5/5. Knee extensors 5/5. Ankle dorsiflexors 5/5. Ankle plantarflexors 5/5. Left Lower Extremity:Hip flexors 5/5. Hip abductors 5/5. Knee flexors 3-/5. Knee extensors 4-/5. Ankle dorsiflexors 5/5. Ankle plantarflexors 5/5. Sensation: Intact as to pain and light pressure in bilateral lower extremities Bed Mobility/Transfers: Supine to sit supervision Sit to stand standby assist Stand to sit supervision Bed to chair supervision Gait: Tolerated level surface ambulation of 150 feet using front-wheeled walker with step-through gait pattern. Good left quad activation. No LOB. No shortness of breath. Stairs: Negotiated 6 x 4 inch steps and 4 x 6 inch steps while holding onto bilateral rails with step to gait pattern requiring only standby assist. Balance: Static Sitting: Normal Dynamic Sitting: Normal Static Standing: Good Dynamic Standing: Fair Special Tests: Mobility Limitations Standardized Measure [facility] 6 clicks Basic Mobility Inpatient Short Form: Raw Score: 24 CMS Score: 0% deficit Informed Consent/Education: Patient instructed in purpose of PT consult. Packet containing TKA exercise protocol has been given to patient. Education and training on initial set of exercises that can be done at home have been completed with patient. THERA EX: Supine quad sets with 5H SH x10 Supine heel slides x10 Supine ankle pumps x10 Small range straight leg raise x10 LAQ x10 Assessment: Patient requires the use of a front wheel walker to maximize independence and reduce fall risk. Patient presents with clinical signs and symptoms consistent with current/admitting diagnoses that have resulted to mobility limitations, gait instability, generalized weakness, and impairment of motor control as demonstrated by the following impairment level findings: 1. Decreased strength to left knee major muscle groups 2. Impaired standing balance 3. Limitation of joint range of motion in left knee flexion Impairments are contributing to the following functional limitations: 1. Inability to safely ambulate without assistive device 2. Increase completion time for mobility ADL performance 3. Increased fall risk Patient is assessed as a 22983 moderate complexity based on the following: History: 83-year-old male with impairment level findings, functional limitations, and past medical history as indicated above Examination: Demonstrable impairment in strength, balance, and mobility level with underlying impairments and functional limitations as documented above Presentation: Evolving Decision Makin moderate complexity Goals: N/A. PT evaluation and 1-2 treatment sessions only for functional mobility training using recommended AD and for HEP instruction. Plan of Care/Treatment Plan: N/A. PT evaluation and 1-2 treatment session only for functional mobility training using recommended AD and for HEP instruction. DISCHARGE RECOMMENDATIONS: Home when medically cleared by orthopedic surgeon. Recommend outpatient PT services in order to optimize functional mobility outcomes and facilitate return to independent community ambulation without an assistive device. TREATMENT CODE/TIME: 9716 2 x 27 minutes beginning at 14:11 PM. Thank you for the opportunity to participate in the care of this patient. Elidia Castaneda PT, DPT, CLT [facility] [place], [place]
--- NOTE | 2023-03-10 17:23 | ROE_ITS ---
Date of service: 03/10/23 Time of Service: 11:00 Operative Note Operative Note DATE OF PROCEDURE: 03/10/23 PRE-OP DIAGNOSIS: Left Knee Arthritis POST-OP DIAGNOSIS: same PROCEDURE: Left Total Knee Arthroplasty with Intraoperative Navigation SURGEON: Cedric Pate EMERGENCY VEHICLE DRIVER: Mack Reddy ANESTHESIA TYPE: Spinal Refer to Anesthesia Record ESTIMATED BLOOD LOSS: 50 PATHOLOGY: none sent COMPLICATIONS: None Patient was transported to: PACU Patient's condition: stable Implants: 1. Depuy Attune Cruciate Retaining Femoral Component, Size 8 2. Depuy Attune Fixed Bearing Tibial Component, Size 7 3. Depuy Attune 8x10 CR, FB Poly 4. Depuy Attune Patellar Component, Size 38 Indications: I have seen Ken in clinic for symptoms of knee arthritis, confirmed with radiographic findings. Ken has exhausted nonoperative methods and was having significant limitations in daily function and desired better function and less pain. I discussed the technical details of a knee replacement. I explained the risks of the procedure to include, but not limited to, bleeding, infection, pain, stiffness, fracture, damage to nerves and vessels, damage to muscles and tendons, loosening, need for repeat procedure, blood clot and cardiopulmonary demise. Despite these risks, [NAME] elected to proceed. Findings: There was significant signs of arthritis throughout the knee with large bone spurs and notable medial deformity. Procedure Description: Ken was greeted in the preoperative holding area where the correct side was identified and marked. The consent was reviewed with the patient and signed. The history and physical was updated. All questions were answered. Preoperative mediacations were administered: Acetaminophen 1000mg, Celebrex 400mg, Gabapentin 300mg, and Oxycontin 10mg. An adductor canal block was then administered by the anesthesia team in the PACU. He was taken back to the operating room. A spinal anesthestic was then administered. The patient was placed into the supine position on the operating room table. A nonsterile tourniquet was placed high onto the leg but only used for cementing. Posts were placed for positioning during the procedure. All bony prominences were well padded. Prophylactic antibiotics in the form of Cefazolin were administered. 1g of Tranxemic Acid was given intravenously within 30 minutes of incision. The left leg was then prepped with Chloraprep and draped in a standard fashion with impervious stockinette and extremity drape with Iodine impregnated skin protection. A timeout to confirm correct identity, side and site, procedure, allergies, anesthesia, and medical concerns was performed. With the knee in some flexion, a midline incision was made overlying the knee. Full thickness skin flaps were raised once the extensor mechanism was encountered. These were raised medially and laterally. Any bleeding was controlled with electrocautery. Once the extensor mechanism was fully exposed, a medial parapatellar arthrotomy was performed in a flexed position. All bleeding from the arthrotomy and the geniculate arteries was coagulated. A medial subperiosteal peel was performed with electrocautery to the midcoronal plane. Due to the significant varus deformity the entire medial tibial plateau was exposed. The fat pad was removed while keeping the patellar tendon protected. The anterior distal femur synovium was removed for later visualization. The ACL and PCL were resected and the anterior horn of the lateral meniscus was transected. The knee was then flexed with the patella everted. Large osteophytes from the tibia were removed. Large osteophytes from the femur were removed. A single starting pin was then placed 1cm anterior to the PCL insertion and the notch in the direction of the femoral head. The OrthoAlign device was applied over the pin. It was oriented to be in line with the epicondylar axis and the trochlear groove. It was then pinned into place. The navigation computer was then turned on and calibrated. The distal femur cut was set at 0.5 degrees varus and 3.5 degrees flexion. The distal femur cutting guide then was positioned for a 9mm cut. The distal femur was cut with an oscillating saw while protecting the soft tissues. The tibia was then addressed. The OrthoAlign device was placed over the tibial tubercle and medial tibia and secured into position. Once again, OrthoAlign was calibrated and then set for a 2 degrees varus cut and 5 degrees of posterior slope. With this locked into position, the cut thickness stylus was used to assess cut thickness. The medial side, most involved side, was set for a 4mm cut. This was then held in position and pinned into place with 2 additional pins and a cross pin for stability. The medial and lateral collateral ligaments were protected and the cut was performed. With this completed, it was assessed and noted to be of appropriate dimensions. The guide and OrthoAlign was removed. A spacer block was inserted and the knee was brought into extension. The 8mm spacer block provided full extension, without hyperextension and with stability of both the medial and lateral collateral ligaments was assessed. The pins from the femur and the tibia were then removed. The Ortholign balancing device was then utilized. In extension this measured the gap of about 20 mm. This was brought into flexion with rotation was set and the gaps were matched. The attune specific adapter was utilized to place pins. The sizer was utilized which showed a size 8 femur. The 4-in-1 cutting guide was placed. While protecting the soft tissues, quad tendon, and collateral ligaments, the anterior and posterior cuts were performed with a saw. The central two pins were removed and the posterior and anterior chamfers were cut next. The notch-cutting guide was placed. This was pinned to lateralize the femoral component as much as possible while keeping it flush on the cut surface. This was then pinned into position. The notch was cut with a small oscillating saw. The trial CR implant was then impacted down to the cut surfaces, and the lug holes were drilled. A provisional trial tibial component was placed and the knee was brought through range of motion. The polyethylene was trialed until there was good flexion and extension with excellent stability to the medial and lateral collaterals. The patella was tracking without thumbs. The tibial cut surface was fully exposed. The medial and lateral menisci were removed. The tibia was then sized as a 7. The tibia had been previously marked during trialing to correspond to the center of the tibial component to help with rotation. The trial was aligned to this mack, approximately rotated to the medial 1/3rd of the tibial tubercle. The trial was pinned into place. The tibia was prepared with a reamer and a keel punch. The knee was then brought into extension and the patella was measured as 26mm. Using the patellar clamp and cut guide, this was resected to a flat surface with at least 13mm of thickness remaining. The size 38 patella fit the best. This was oriented and then clamped into position. The lugs were drilled. The trial components were removed. The final components, except for the polyethylene were opened on the back table. The periosteal and capsular tissues, especially posteriorly, around the knee were then systematically injected with a periarticular cocktail consisting of 246mg of Ropivacaine, 0.5mg of Epinephrine, 0.08mg of Clonidine, and 30mg of Ketorolac, diluted to 100cc. The tourniquet was then inflated to 275mmHg. The knee was thoroughly irrigated with a pulse lavage and dried. On the back table, with the implants opened, the cement was mixed. 2 batches of antibiotic laden cement were prepared with vacuum assistance. After the cement was ready a small amount was placed on to the back side of the tibial component at the keel. A small amount was placed onto the posterior flange of the femur. Cement was manual pressurized and impregnated into the cut surface of the tibia. The tibial component was then inserted into the cut surface and impacted into position. Excess cement was removed and the component was reimpacted. Again, excess cement was removed and our attention was then turned to the femur. The femoral cut surface was once again dried and cement was manually impacted into the cut surface. The femoral component was lined with the lug holes and impacted. Excess cement was removed. It was ensured to be down against the cut surface. The trial polyethylene was then inserted and the leg was brought out into full extension for the duration of the cement curing process, approximately 15min. Cement was lastly manually impacted into the cut surface of the patella and the patellar button was clamped into position and held. During this process attention was turned to the gutters of the knee and for all interfaces for any excess cement. The knee was then thoroughly irrigated with Surgiphor Betadine solution. It was allowed to sit in the knee for 3 minutes before being irrigated out with saline. After the cement had finally cured, approximately 15min, the clamp was removed from the patella and the knee was taken through range of motion. A size 10mm polyethylene component provided the best range of motion and stability with less than 2mm gapping with medial and lateral stress and full extension without significant hyperextension. The patella was tracking with a no-thumbs technique. The trial poly was removed and once again the knee was checked for any loose, excess, or errant cement. The poly component was then inserted into position after cleaning and drying the tibial tray. The capsule was then reapproximated with a No. 1 Vicryl at multiple locations. The capsule was finally closed with a No. 2 Stratafix, barbed suture. The tourniquet was then released and the arthrotomy appeared watertight without significant bleeding. The second dosing of 1g TXA was started. Deep tissues were then reapproximated with 0 Vicryl and 2-0 Vicryl. The skin was closed with a running 3-0 Monocryl in a subcuticular fashion. This was reinforced with skin glue. A Mepilex silver dressing was applied along with a cmji-ni-eauia NAZ wrap. A CryoCuff was applied. Ken was transferred to the hospital bed without difficulty an suffering no apparent complication. Ken has a good prognosis. Physical therapy will start today and without restrictions, weight-bearing as tolerated. Aspirin 81mg BID will be used for DVT prophylaxis.
== END 2023-03-10 15:12 | disposition home or self-care (01) ==
PROVIDERS: PCP Family Medicine; Visit Provider Student in an Organized Health Care Education/Training Program
PROC: (CPT 27447; principal; 2023-03-10 09:30)
DX: M17.12 Unilateral primary osteoarthritis, left knee (principal); E11.9 Type 2 diabetes mellitus without complications; I25.10 Atherosclerotic heart disease of native coronary artery without angina pectoris; I10 Essential (primary) hypertension; E78.2 Mixed hyperlipidemia
CPT/HCPCS: 20985; 27447; C1776; 76942; 97162; J0690; J1100; J2370; J2405

== ENCOUNTER 2023-03-25 10:16 | Outpatient (CLI) | payer MEDICARE, SELFPAY ==
--- NOTE | 2023-03-25 10:23 | DI.RAD_ITS ---
Exam(s) XR KNEE LT 1V EXAM: XR KNEE LT 1V CLINICAL HISTORY: 1st post op L TKA. TECHNIQUE: 2D digital imaging was performed. COMPARISON: CR XR KNEE LT 1V from 03/05/2023 FINDINGS: Single lateral view. Satisfactory position alignment of the components of recently placed left knee prosthesis. No fractu re or loosening evident. Soft tissue swelling noted anteriorly. IMPRESSION: DATA REPOSITORY: RADIATION DOSE DELIVERED:
--- NOTE | 2023-03-25 10:24 | DI.RAD_ITS ---
Exam(s) XR KNEE RT 2V AP,LAT EXAM: XR KNEE RT 2V AP,LAT CLINICAL HISTORY: ANNUAL F/U R TKA. TECHNIQUE: 2D digital imaging was performed. COMPARISON: CR XR KNEE LT 1V from 03/05/2023 CR XR STANDING ALIGNMENT from 03/05/2023 CR XR KNEE LT 1V from 03/25/2023 CR XR STANDING ALIGNMENT from 03/25/2023 FINDINGS: Two weight-bearing views Satisfactory position alignment of components of the prosthesis without significant change compared 0 03/05/2023. No evidence of new fracture or loosening of the right knee prosthesis. IMPRESSION: Stable satisfactory appearance. DATA REPOSITORY: RADIATION DOSE DELIVERED:
--- NOTE | 2023-03-25 10:24 | DI.RAD_ITS ---
Exam(s) XR STANDING ALIGNMENT EXAM: XR STANDING ALIGNMENT CLINICAL HISTORY: 1ST POST OP L TKA. TECHNIQUE: 2D digital imaging was performed. COMPARISON: CR XR STANDING ALIGNMENT from 03/05/2023 FINDINGS: There are now bilateral knee prostheses with recent placement of a left knee prosthesis which was not evident on the 03/05/2023 study. Components appear to be in satisfactory position and alignment. O pposite-right knee prosthesis appears unremarkable. Left hip prosthesis appears unremarkable. Advan sarah degenerative changes in the right hip are again noted. Ankles unremarkable. Bone density is normal. No lytic nor blastic lesions identified in the bones of the pelvis and lower extremities. IMPRESSION: Satisfactory appearance. DATA REPOSITORY: RADIATION DOSE DELIVERED:
== END 2023-03-25 10:17 | disposition home or self-care (01) ==
LOC: DIORS 10:17
PROVIDERS: PCP Family Medicine; Referring Provider Family Medicine; Visit Provider Physician Assistant
DX: Z96.652 Presence of left artificial knee joint (principal); Z96.651 Presence of right artificial knee joint; Z47.1 Aftercare following joint replacement surgery
CPT/HCPCS: 73560; 77073

== ENCOUNTER → 2023-04-26 10:29 | Outpatient (BNVA) | payer MEDICARE, SELFPAY | PROVIDERS: PCP Family Medicine; Referring Provider Family Medicine; Visit Provider Student in an Organized Health Care Education/Training Program | DX: Z47.1 Aftercare following joint replacement surgery (principal); Z96.652 Presence of left artificial knee joint ==

== ENCOUNTER → 2023-06-21 10:45 | Outpatient (BNVA) | payer MEDICARE, SELFPAY | PROVIDERS: PCP Family Medicine; Referring Provider Family Medicine; Visit Provider Student in an Organized Health Care Education/Training Program | DX: Z47.1 Aftercare following joint replacement surgery (principal); Z96.652 Presence of left artificial knee joint ==

== ENCOUNTER 2024-03-10 13:49 | Outpatient (CLI) | payer MEDICARE, SELFPAY ==
--- NOTE | 2024-03-10 11:00 | DI.RAD_ITS ---
Exam(s) XR KNEE LT 2V AP,LAT EXAM: XR KNEE LT 2V AP,LAT CLINICAL HISTORY: F/U LEFT TKR. TECHNIQUE: 2D digital imaging was performed. Two images were obtained. AP and lateral views were ob tained. COMPARISON: CR XR KNEE RT 2V AP,LAT from 03/25/2023 FINDINGS: BONES: There are stable post operative changes of a left total knee replacement present. No fracture or dislocation. JOINTS: The orthopedic hardware is in good position. No evidence of hardware loosening. SOFT TISSUE: Vascular calcifications are present. IMPRESSION: Stable left total knee replacement. DATA REPOSITORY: RADIATION DOSE DELIVERED:
== END 2024-03-10 13:50 | disposition home or self-care (01) ==
LOC: DIORS 13:50
PROVIDERS: PCP Family Medicine; Referring Provider Family Medicine
DX: Z47.1 Aftercare following joint replacement surgery (principal); Z96.652 Presence of left artificial knee joint
CPT/HCPCS: 99213; 73560

== ENCOUNTER 2025-01-08 12:16 | Outpatient (CLI) | payer MEDICARE, SELFPAY ==
--- NOTE | 2025-01-08 08:45 | DI.RAD_ITS ---
Exam(s) XR HIP RT COMPLETE AP PELVIS EXAM: XR HIP RT COMPLETE AP PELVIS CLINICAL HISTORY: R hip pain. TECHNIQUE: 2D digital imaging was performed of the right hip. Two images were obtained. AP pelvis a nd lateral right hip views were obtained. COMPARISON: CR XR HIP LT COMPLETE AP PELVIS from 12/14/2022 CR XR STANDING ALIGNMENT from 03/25/2023 FINDINGS: BONES: No acute fracture is present. No bony destructive lesion is seen. JOINTS: No dislocation present. Note is again made of a prior left total hip arthroplasty. There are marked degenerative changes seen in the right hip characterized by joint space narrowing and osteoph ytes. There osteophytes seen in both the acetabulum and the femoral head. SOFT TISSUE: Vascular calcifications are seen in the soft tissues. IMPRESSION: Marked osteoarthritis of the right hip. DATA REPOSITORY: RADIATION DOSE DELIVERED:
== END 2025-01-08 12:17 | disposition home or self-care (01) ==
LOC: DIORS 12:17
PROVIDERS: PCP Family Medicine; Visit Provider Physician Assistant
DX: M16.11 Unilateral primary osteoarthritis, right hip
CPT/HCPCS: 99214; 73502

== ENCOUNTER 2025-03-09 09:45 | Outpatient (CLI) | payer MEDICARE, SELFPAY ==
--- NOTE | 2025-03-09 09:00 | DI.RAD_ITS ---
Exam(s) XR KNEE LT 2V AP,LAT EXAM: XR KNEE LT 2V AP,LAT CLINICAL HISTORY: ANNUAL F/U L TKA. TECHNIQUE: 2D digital imaging was performed. COMPARISON: CR XR KNEE LT 2V AP,LAT from 03/10/2024 FINDINGS: 3 views Stable position alignment of the components of the prosthesis. No fracture or loosening evident. No evidence of osteomyelitis. IMPRESSION: Stable satisfactory appearance DATA REPOSITORY: RADIATION DOSE DELIVERED:
== END 2025-03-09 09:46 | disposition home or self-care (01) ==
LOC: DIORS 09:45
PROVIDERS: PCP Specialist/Technologist Athletic Trainer; Visit Provider Physician Assistant
DX: Z96.652 Presence of left artificial knee joint (principal); Z47.1 Aftercare following joint replacement surgery
CPT/HCPCS: 99213; 73560

== ENCOUNTER 2025-03-20 08:28 | Day surgery (SDC) | payer MEDICARE, SELFPAY ==
[2025-03-20] VITALS (19 sets, daily range): BP systolic 112–168; BP diastolic 49–78; PULSE 51–77; RESP 11–21; TEMP 36.1–37.2; O2SAT 88–99; BMI 24.2
--- NOTE | 2025-03-20 07:26 | PDOC.DSDIS_ITS ---
Date of service: 03/20/25 Discharge Plan Disposition Patient Disposition: Home Condition: Good Discharge Details Reason For Visit: Right hip DJD Attending Provider: Cedric Pate Primary Care Provider: Brody Burgos Home Meds and New Rx's Prescriptions: New acetaminophen 500 mg tablet 1,000 mg PO Q8H PRN Qty: 90 0RF Rx Instructions: Take two tablets up to every 8 hours as needed for pain aspirin 81 mg tablet,delayed release (DR/EC) 81 mg PO BID 30 Days Qty: 60 0RF docusate sodium [Colace] 100 mg capsule 100 mg PO BID Qty: 28 0RF meloxicam 15 mg tablet 15 mg PO DAILY Qty: 30 1RF Rx Instructions: Take one tablet daily for pain and inflammation pantoprazole 40 mg tablet,delayed release (DR/EC) 40 mg PO DAILY Qty: 14 0RF dexamethasone 4 mg tablet 4 mg PO DAILY Qty: 2 0RF Rx Instructions: Take one tablet once daily for two days oxycodone 5 mg tablet 5 mg PO Q6H PRNQty: 12 0RF Rx Instructions: Take one tablet up to every 6 hours as needed for severe postoperative pain Continued amlodipine 10 mg tablet 10 mg PO DAILY Fish Oil 120-180 mg capsule 1 cap PO DAILY garlic 1,500 mg capsule 1,500 mg PO QPC metoprolol succinate 25 mg tablet extended release 24 hr 25 mg PO DAILY multivitamin Tablet 1 tab PO DAILY Entresto 49-51 mg tablet 1 tab PO BID levothyroxine 75 mcg tablet 75 mcg PO DAILY Patient Comments: TAKE 1 TABLET BY MOUTH ONCE DAILY Discontinued aspirin 81 mg tablet,delayed release (DR/EC) 81 mg PO DAILY acetaminophen 500 mg tablet 1,000 mg PO TID Qty: 90 3RF Discharge Instructions Additional Instructions: Total Hip Discharge Instructions Activity: The most important activity is to walk. You should try to take short walks a few times a day. You have no restrictions on movement or positioning, but do not try to force what you do. You will find some stiffness and weakness with hip flexion (lifting your knee). Do not try to strengthen this too early, continue to practice walking and stairs and this will come. - Outpatient physical therapy can be helpful to help return you to a normal gait and improve your flexibility and strength. This can start around 2 weeks. For some patients, it?s not necessary. Usually this is determined at the time of discharge or at the first post-operative visit. - You should wear the GOLDEN hose on both legs for 2 weeks. Dressing: Keep the surgical dressing in place for at least one week. After the first week it may be removed and replace with light gauze and tape or nothing. It may get wet after 3 days but avoid soaking the dressing. If it gets wet, just lightly pat dry. It is important to always keep some gauze between skin folds, especially when you are sitting. Spend some time with the wound exposed when you are lying flat as the incision does wrinkle onto itself. Medications: - You should take Tylenol and an anti-inflammatory Meloxicam as your primary pain control medications. If the Meloxicam is too expensive or not covered, please call the office for another alternative (Advil/Ibuprofen or Naproxen/Aleve). - You have been prescribed a stronger pain medication Oxycodone for breakthrough pain, take as needed as prescribed. - You have also been prescribed a stomach acid reduction agent Pantoprozole to help reduce stomach acid and reflux. - You have also been prescribed Decadron to help with post-operative nausea and pain. You will take this for two days starting tomorrow. - You will be taking Aspirin 81mg twice a day for DVT prevention unless ins tructed otherwise. - If you have constipation you should take Colace (which has been prescribed) or Miralax (which is available [id number]). It takes most people 3-4 days to have a bowel movement. Follow-up: 2 weeks If you have any acute concerns or questions, please do not hesitate to contact the office at [phone]. You may contact Dr. Pate with any questions after hours through the hospital at [phone] or on his cell phone at [phone]. Referrals: Cedric Pate MD [ [facility] STAFF PHYSICIAN] - Equipment/Supplies: Walker Activity:: Elevate Remove Dressings/Wound Care:: Do Not Remove Shower/Bathe:: Cover Diet:: As Tolerated Discharge Orders Discharge Orders: Discharge Order (Routine); Ordered 03/20/25 Ordered By: Molly Reich
[2025-03-20] MEDS: Celecoxib 200 MG CAP 400 MG PO (08:57)
[2025-03-20] MEDS: Acetaminophen 500 MG TAB 1000 MG PO (08:57)
[2025-03-20] MEDS: Lactated Ringers 1,000 ML 80 ML IV (08:59)
--- NOTE | 2025-03-20 09:11 | W.ANESPRE ---
General Info Date of Service Date Performed: 03/20/25 Height: 5 ft 9 in Weight: 74.4 kg Body Mass Index (BMI): 24.2 Surgical Procedure: Operation Date: 03/20/25 11:20 Proposed Procedure Side Surgeon p Hip Total Hip Anterior Right Cedric Pate MD Meds Allergies and Home Medications Allergies Allergy/AdvReac Type Severity Reaction Status Date / Time No Known Allergies Allergy Verified 03/20/25 08:52 Home Medication ?Medication ?Instructions ?Recorded amlodipine 10 mg tablet 10 mg PO DAILY 04/06/22 docosahexaenoic acid (dha)-epa 120 1 cap PO DAILY 04/06/22 mg-180 mg capsule (Fish Oil) garlic 1,500 mg capsule 1,500 mg PO QPC 04/06/22 metoprolol succinate 25 mg 25 mg PO DAILY 04/06/22 tablet,extended release 24 hr multivitamin 1 tab PO DAILY 04/06/22 sacubitril 49 mg-valsartan 51 mg 1 tab PO BID 04/14/22 tablet (Entresto) levothyroxine 75 mcg tablet 75 mcg PO DAILY 03/16/25 acetaminophen 500 mg tablet 1,000 mg (2 x 500 mg) PO Q8H PRN 03/20/25 pain #90 tabs aspirin 81 mg tablet,delayed 81 mg PO BID 30 days #60 tabs 03/20/25 release dexamethasone 4 mg tablet 4 mg PO DAILY #2 tabs 03/20/25 docusate sodium 100 mg capsule 100 mg PO BID #28 caps 03/20/25 (Colace) meloxicam 15 mg tablet 15 mg PO DAILY #30 tabs 03/20/25 oxycodone 5 mg tablet 5 mg PO Q6H PRN #12 tabs 03/20/25 pantoprazole 40 mg tablet,delayed 40 mg PO DAILY #14 tabs 03/20/25 release Current Visit Medications: Current Medications Generic Name Dose Route Start Last Admin Trade Name Freq PRN Reason Stop Dose Admin Acetaminophen 1,000 mg 03/20/25 06:00 03/20/25 08:57 Acetaminophen 500 Mg Tab PO 03/20/25 23:59 1,000 mg PREOP CAREN Administration Celecoxib 400 mg 03/20/25 06:00 03/20/25 08:57 Celecoxib 200 Mg Cap PO 03/20/25 23:59 400 mg PREOP CAREN Administration Hydromorphone HCl 0.5 mg 03/20/25 07:24 Hydromorphone 2 Mg/Ml Syr IVP 04/19/25 07:23 Q2H PRN PRN Ringer's Solution 1,000 mls @ 80 mls/hr 03/20/25 06:00 03/20/25 08:59 IV 03/20/25 23:59 80 mls/hr INFUSION CAREN Administration Cefazolin Sodium/Dextrose 2 gm in 50 mls @ 100 mls/hr 03/20/25 06:00 Ancef Duplex IVPB 03/20/25 23:59 PREOP CAREN Tranexamic Acid/Sodium Chloride 1,000 mg in 100 mls @ 600 mls/hr 03/20/25 06:00 IVPB 03/20/25 23:59 PREOP CAREN Cefazolin Sodium/Dextrose 1 gm in 50 mls @ 100 mls/hr 03/20/25 08:00 Ancef Duplex IVPB 03/21/25 00:29 Q8H CAREN IV Miscellaneous Supplies 1 each 03/20/25 06:00 Iv Access IV 03/20/25 23:59 DIRECTED CAREN Oxycodone HCl 0 mg 03/20/25 07:24 Oxycodone 5 Mg Tab PO 04/19/25 07:23 Q3H PRN PRN Pain Sodium Chloride 0 ml 03/20/25 06:00 Normal Saline Flush 10 Ml Syr IV 03/20/25 23:59 PRN PRN Sodium Chloride 0 ml 03/20/25 06:00 Normal Saline 10 Ml Vial IJ 03/20/25 23:59 DIRECTED PRN Sterile Water 0 ml 03/20/25 06:00 Water,Injection,Sterile 10 Ml Vial IJ 03/20/25 23:59 DIRECTED PRN Tranexamic Acid 1,300 mg 03/20/25 07:24 Tranexamic Acid 650 Mg Tab PO 04/19/25 07:23 ONCE PRN postoperative PFSH Active Problems Active Problems: Problem Status Onset Code Osteoarthritis of right hip Acute M16.11 CAD (coronary artery disease) Chronic I25.10 Hypertensive disorder Chronic I10 Mixed hyperlipidemia Acute E78.2 Type 2 diabetes mellitus Acute E11.9 Hypothyroidism Chronic E03.9 Medical History Medical History Flexural psoriasis Impotence Medical History Comments:: bilateral hearing aids Surgical History Surgical History History of total right knee replacement (TKR) (04/21/22) History of total left hip arthroplasty (12/02/22) History of total left knee replacement (03/10/23) Hx of cardiac catheterization (02/09/11) 1 stent placed History of appendectomy Tobacco Smoking/Tobacco Use Status: Former Tobacco Use Alcohol Alcohol Intake: never Substance Use Substance use: Never Substance use type: does not use Vital Signs and Lab Results Vital Signs Most Recent Vital Signs in EMR: Most Recent Vital Signs Temp Pulse Resp BP Pulse Ox 36.3 C L 77 16 146/78 H 97 03/20/25 08:48 03/20/25 08:48 03/20/25 08:48 03/20/25 08:48 03/20/25 08:48 Lab Results Blood Type / Crossmatch: No Data to Display Complete Blood Count: No Data to Display Complete Metabolic Panel: No Data to Display Liver Function Panel: No Data to Display Coagulation Panel: No Data to Display Cardiac Panel: No Data to Display Arterial Blood Gas: No Data to Display Venous Blood Gas: No Data to Display Pancreas Panel: No Data to Display Thyroid Panel: No Data to Display Infectious Disease: No Data to Display Blood Cultures: No Data to Display Toxicology Panel: No Data to Display Imaging and Studies Imaging and Studies Study information below may be from another EMR and interpreted by another provider. Please see original notes in EMR for more complete details. Stress Test Summary: Stress ECG Conclusion 11/01 1. The resting electrocardiogram showed voltage for left ventricular hypertrophy 2. Patient exercised on the Serge protocol and completed a workload of 7.05 METS 3. Normal heart rate and blood pressure response to exercise. The patient achieved 87% of predicted heart rate for age 4. Electrocardiographically the test was notable for [address] depression in the inferior leads which returned to baseline by minute 6 of recovery 5. There were no significant dysrhythmia 6. See MPI for results Salgado Treadmill Score is 4.9 which is Moderate risk. MPI Conclusion There is no evidence of myocardial ischemia. The inferobasal segment appears predominantly infarcted, no redistribution EF 36% with inferobasal wall motion abnormality Echocardiogram Summary: 10/21/2021: Outside hospital ECHO report: EF 60-65% Mild , 1.1cm, peak/mean gradient 19mmHg/10mmHg Moderate AR Pulmonary Pressures: 30-40 mmHg Cardiac Catheterization Summary: 02/09/2011: BMS to mid-circumflex Anesthesia Assessment and Plan Anesthesia History Personal History: No History of Anesthesia Complications Family History: No Family History of Anesthesia Complications Exercise Tolerance Exercise Tolerance: Metabolic Equivalents>4 Cardiac & Pulmonary Exam Cardiac Exam: Normal S1/S2 Heart Sounds Pulmonary Exam: Clear Bilateral Breath Sounds Implantable Cardiac Device Does patient have a Pacemaker or an ICD?: No Airway Exam Known Difficult Airway: No Mallampati Class: 2 Mouth Opening: Narrow (< 3cm) Thyromental Distance: Greater than 3 cm Neck Range of Motion: Full ROM Neck Circumference: Normal Teeth Condition: Normal Dentition and Removable Dentures/Plates Upper Airway Comments: Poor mouth opening effort this morning ASA Classification ASA Score: ASA 3 Emergency Case?: No NPO Status NPO Status: NPO Clears >2 hours, Solids >8 hours Anesthesia Plan Resuscitation Status: Full Code Anesthesia Technique: General Anesthesia Airway Planned: Endotracheal Tube Monitors Used: Standard Monitors and SedLine Preoperative Comments:: 85 yo male for KAREN. Sig PMHx: HTN (amlodipine, metorpolol, Entresto), CAD, GERD (pantoprazole), CKDII, DM, hypothyroid (on replacment), former smoker. On exam, noted to have bruising on his nose from a fall the previous day - per the patient. Previous Anes: - TKA, chloroprocaine spinal - 2 attempts final was left paramedian, prop sedation, phenyl gtt, natural airway, no issues. - KAREN, spinal with heavy, ? set up, converted to GA 2/2 vomiting under sedation , malhotra 2 grade 2a. - TKA, spinal, prop, phenyl gtt, natural airway no issues.
[2025-03-20] MEDS: ceFAZolin 2 GM/50 ML BAG IVPB (10:22)
[2025-03-20] MEDS: TRANEXAMIC ACID/SOD. CHL. 1,000 MG/100 ML BAG 600 MG IVPB (10:29)
--- NOTE | 2025-03-20 11:28 | DI.RAD_ITS ---
Exam(s) XR HIP RT IN OR EXAM: XR HIP RT IN OR CLINICAL HISTORY: Osteoarthritis of right hip. TECHNIQUE: 2D digital imaging was performed. COMPARISON: No exams were available for comparison FINDINGS: Fluoroscopy provided during hip arthroplasty. See procedure report for details. Total fluoroscopy time 31.7 seconds IMPRESSION: Radiation exposure index/cumulative dose: Dylanr= 3.059mGy DATA REPOSITORY: RADIATION DOSE DELIVERED:
--- NOTE | 2025-03-20 12:49 | W.ANESPOSTOP ---
Postoperative Evaluation Date, Time and Location Date Performed: 03/20/25 Time Performed: 12:49 Patient Location: Day Surgery Unit Vital Signs Most Recent Imported Vital Signs: Most Recent Vital Signs Temp Pulse Resp BP Pulse Ox 36.1 C L 60 16 142/50 H 94 03/20/25 12:28 03/20/25 12:28 03/20/25 12:28 03/20/25 12:28 03/20/25 12:28 Pain Score Most Recent Pain Score: Most Recent Pain Score Pain Level 7 03/20/25 12:28 Assessment Mental Status: Awake (Alert & Oriented to Patient Baseline) Airway and Respiratory Function: Patent airway with normal (patient baseline) respiratory exam Cardiovascular Function: Hemodynamically Stable Hydration Status: Adequately Hydrated Nausea & Vomiting: No Nausea or Vomiting Pain: Pain is tolerable per patient Peripheral Nerve Block: Patient did not receive a nerve block
--- NOTE | 2025-03-20 12:53 | W.PM.OP ---
Operative Note Operative Note PRE-OP DIAGNOSIS: Right Hip Osteoarthritis POST-OP DIAGNOSIS: same PROCEDURE: Right Anterior Total Hip Arthroplasty with Intraoperative Navigation SURGEON: Cedric Pate MIXING MACHINE OPERATOR: Molly Reich ANESTHESIA TYPE: General LMA/ETT Refer to Anesthesia Record ESTIMATED BLOOD LOSS: 200 PATHOLOGY: none sent TOURNIQUET TIME: 0 COMPLICATIONS: None Patient was transported to: PACU Patient's condition: stable Implants: 1. Depuy [place] Acetabular Component, 60mm 2. Depuy Acetabular Liner, [id number] 3. Depuy Actis High Offset Collared Femoral Stem, Size 6 4. Depuy Altrx Ceramic Femoral Head, Size 36+1.5mm Indications: I have seen Ken in clinic for symptoms of hip arthritis, confirmed with radiographic findings. He has exhausted nonoperative methods and was having significant limitations in daily function and desired better function and less pain. I discussed the technical details of a hip replacement. I explained the risks of the procedure to include, but not limited to, bleeding, infection, pain, stiffness, fracture, damage to nerves and vessels, damage to muscles and tendons, loosening, instability, leg length inequality, need for repeat procedure, blood clot and cardiopulmonary demise. Despite these risks, Ken elected to proceed. Findings: There was significant signs of arthritis throughout the hip with large osteophytes, loss of cartilage, and a large effusion. Procedure Description: Ken was greeted in the preoperative holding area where the correct side was identified and marked. The consent was reviewed with the patient and signed. The history and physical was updated. All questions were answered. He was taken back to the operating room. A general anesthestic was then administered. The feet were wrapped with cast padding and Coban and then placed into the boot liners and then into the boots. Care was taken to protect the skin and make sure the heels were fully down and the boots were stable. The patient was then positioned onto the HANA table. Both legs were held in a neutral position. SCDs were applied. The patient was then slid down onto a peroneal post. Prophylactic antibiotics in the form of Cefazolin were administered. 1g of Tranxemic Acid was given intravenously within 30 minutes of incision. The right leg was then prepped with Chloraprep and draped in a standard fashion. A second prep with Chloraprep was performed prior to placement of a shower-curtain type drape with Iodine impregnated skin protection. A timeout to confirm correct identity, side and site, procedure, allergies, anesthesia, and medical concerns was performed. An obliquely oriented incision was made starting lateral to the ASIS and running distal over the Tensor Fascia Lauren (TFL) muscle belly toward the fibular head, approximately 10cm. The skin and soft tissue was dissected sharply, through Kenyon?s fascia, and to the fascia of the TFL. With the fascia and superior border of the IT band identified, the fascia was incised with a new knife just above any perforators from the IT band. The TFL muscle belly was bluntly dissected away from the fascia and moved laterally. The fat between TFL and rectus was identified to ensure the dissection was not within the TFL. Blunt dissection created space between abductors and the capsule and retractor was placed over the lateral femoral neck. The fibers of the rectus femoris tendon were identified and these were freed from the anterior capsule. A second cobra retractor was placed around the medial femoral neck. The TFL was further retracted laterally to show the deep fascia. Careful dissection through this layer identified three main crossing vessels of the lateral femoral circumflex. These were cauterized in multiple locations and then cut without any noticeable bleeding. The TFL was further released bluntly from the deep fascia to expose anterior hip capsule and fat The soft tissue orthopaedic retractor was then placed beneath the TFL and against sartorius and medial soft tissues to protect and retract the soft tissues. A T-capsulotomy was then performed starting at the superior lateral acetabulum and moving distally to the intertrochanteric ridge. These capsular flaps were tagged with a No. 1 Vicryl and elevated from within. The capsular flaps were released to the shoulder of the lateral neck and to the lesser trochanter to give excellent visualization of the proximal femur. A neck osteotomy was performed using an oscillating saw based on preoperative templates. This cut started in the shoulder and of the lateral neck and exited medially. The saw was at all times directed medially to avoid injury to the greater trochanter. Gross traction was applied to the leg and the osteotomy opened. The femoral head was removed with a corkscrew, making sure to protect the TFL on its exit. Traction was released after head removal. This was measured on the back table to determine the starting reamer size. Portions of the rectus obscuring visualization were minimally elevated off the superior acetabulum. An anterior retractor was placed over the anterior wall between capsule and labrum and attached to the Gripper retraction system. The femur was rotated to 90 degrees and medial capsule was fully released until the lesser trochanter was palpable and visible; the femur was returned to 30 degrees. A posterior retractor was placed similarly between capsule and labrum. This provided excellent visualization. The contents of the cotyloid fossa were removed with electrocautery and the labrum was removed with a knife. There was a notable floor osteophyte. There was significant chondromalacia of the superior acetabulum. Acetabular reaming began with a 54mm reamer. This first reaming was directed anterior to posterior and medial to get down to the true floor. This was inspected and reamed until the true floor was reached. The anterior retractor was then released and entry and exit was provided by traction on the capsular flaps. I then reamed sequentially up to a 60mm reamer where good fit was obtained. The larger reamers were oriented based on anatomical reference of the anterior and lateral morris to ensure proper abduction and anteversion. Positioning and size was confirmed with the fluoroscopy. A 60mm Depuy [place] acetabular component was selected. The acetabulum was reamed around the periphery with the selected acetabular size to prevent a rim fit. The deep tissues were irrigated. The acetabular component was then impacted in a position of about 40-45 degrees of abduction and 15-20 degrees of anteversion, using the patient?s anatomy as the ultimate landmark. Fluoroscopy was used to confirm this. There was excellent cementer machine joiner of the acetabular component and the inserting handle was removed. The acetabular liner, Depuy [id number] polyethylene liner, was inserted and lined up with the tines of the acetabular component. There was no soft tissue interposition. The liner was then impacted into position and confirmed to be well-seated. A portion of the orgelio-articular cocktail was then injected around the acetabulum into the capsule and periosteum. This cocktail consisted of 123mg of Ropivacaine, 0.25mg of Epinephrine, 0.04mg of Clonidine, and 15mg of Ketorolac, diluted to 50cc. The leg was rotated to 120 degrees. Any remaining medial capsule was released until the lesser trochanter was easily palpable. A retractor was placed medially. The lateral capsule was further released into the shoulder to allow access to the greater trochanter. A Ty retractor was placed over the greater trochanter which allowed the trochanter to flip in front of the capsule for excellent exposure. The leg was brought down into maximal extension and 20 degrees of adduction while ensuring there was no impingement on the acetabulum. Any remnant capsule within the trochanter was released. Piriformis and obturator externis were identified and protected. There was excellent access to the proximal femur. The lateral neck remnant was removed with a rongeur. A blunt canal probe was used to identify the canal and trajectory for later broaching. A box osteotome initiated the broach course. A small curved rasp and a curved curette were used to work laterally. Broaching then began with a starter Actis broach. This was inserted manually around the trochanter and into the canal before mallet blows. The broach was seated to a few millimeters below the cut level based on the neck cut and the preoperative template. Sequential broaching was continued with the AlignMed pneumatic broaching device until a tight fit was obtained with good rotational control of the femur. A trial high offset neck was inserted along with a +1.5 trial head. The leg was brought out of extension and adduction and then reduced with traction and internal rotation. The leg was stable anteriorly in a position of 30 degrees of extension and 90 degrees of external rotation. Fluoroscopy was used to ensure there was no fracture and the stem was seated well. Leg lengths were checked with an AP pelvis and pelvic reference points. [employer] navigation system was used to confirm appropriate positioning and leg length and offset. Once content with the desired offset and leg lengths, the leg was brought back into extension, external rotation and adduction. The periosteum and surrounding tissue was injected with remaining portion of the rgoelio-articular cocktail. The proximal femur was irrigated as well as the deep tissues. The Depuy Actis High Offset collared stem, size 6, was then manually inserted into the proximal femur making sure to control rotation. It was then malleted into position with light blows, giving breaks to allow bone expansion and decrease risk of fracture. The selected Depuy Altrx Ceramic Head, size 36+1.5mm, was then placed onto the clean and dry trunnion and secured with impaction onto the tapered fit. The leg was brought back out of extension and adduction and reduced with traction and internal rotation. Stability was confirmed with no shuck at 90 degrees of external rotation and 30 degrees of extension. No impingement through range of motion arc. Final x-ray images were obtained with fluoroscopy to confirm adequate positioning and no intraoperative fracture. The deep tissues were thoroughly irrigated with Surgiphor, betadine solution. This was allowed to sit in the wound for 3 minutes before being thoroughly irrigated out with normal saline. The capsule was then reapproximated with the previously placed sutures and the indirect head of the rectus was inspected and reapproximated with a #1 Vicryl. The TFL fascia was finally closed with a No. 2 Stratafix, barbed suture. Deep tissues were then reapproximated with 0 Vicryl and a running 2-0 Vicryl. The skin was closed with a running 4-0 Monocryl in a subcuticular fashion. This was reinforced with skin glue. A Mepilex silver dressing was applied. At the end of the case, all counts were correct. Ken was transferred to the hospital bed without difficulty and suffering no apparent complication. He has a good prognosis. Physical therapy will start today and without restrictions, weight-bearing as tolerated. Aspirin 81mg BID will be used for DVT prophylaxis. Date of Procedure: 03/20/25
[2025-03-20] MEDS: Tranexamic Acid 650 MG TAB 1300 MG PO (14:08)
--- NOTE | 2025-03-20 14:24 | IN_ITS ---
PT Notes Visit Reasons: Right hip DJD Physical Therapy Day Surgery Initial Evaluation Date: 03/20/2025 Referring Doctor: Molly Reich NP/Dr. Pate PT Orders: PT CONSULT: [] Status post Ortho surgery Precautions: RLE WBAT, [place] B Hearing aides Patient Profile/Admitting Diagnosis: Ken is an 85-year-old male presenting status post elective right KAREN by Dr. Pate on 03/20/25. Postop uncomplicated. 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 Equipment Owned/DME: [facility] Subjective: Pt denies pain Objective: [] General Observation: male semireclined on stretcher , ice to right hip Mental Status: A+Ox4 , able to follow instructions when spoken close to his ear Pain: denies ROM: [] BUE: Shoulders impaired elevation but able to reach behind head Right Lower Extremity: WFL reduced hamstring length Left Lower Extremity: WFL reduced hamstring length Strength: [] Right Upper Extremity: 5/5 though available ROM Left Upper Extremity: 5/5 through available range Right Lower Extremity: Hip flexion: 3- /5; hip abduction: 2+ /5; hip extension: 3- /5; knee extension: 3- /5; knee flexion: 2+ /5 ankle DF: 3 /5 ; ankle PF: 3 /5 Left Lower Extremity: 5/5 Sensation: intact Bed Mobility/Transfers: [] Supine to sit supervision Sit to stand supervision cues for hand placement Stand to sit supervision cues for hand placement Bed to chair supervision with FWW Gait: Ambulated with FWW standby assist reciprocal pattern initially slightly antalgic on right resolved after initial 40 feet. Stairs: 3 4 steps? and 2 6 steps with rails CGA with continuous cues for sequencing step to pattern Balance: [] Static Sitting: Normal Dynamic Sitting:good Static Standing: Good Dynamic Standing: Fair Special Tests: [] Mobility Limitations Standardized Measure [] [facility] AM-PAC 6 clicks Basic Mobility Inpatient Short Form: [] Raw Score: 22 CMS Score:20.91% Informed Consent/Education: Patient instructed in purpose of PT consult. Treatment: 55254 packet containing KAREN exercise protocol has been given to patient. Education and training on initial set of 10 reps of exercises that can be done at home have been completed with patient. 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 Decreased strength to right hip major muscle groups 2. Impaired standing balance 3. Limitation of joint range of motion in right hip 4. Impaired hamstring length BLE 5. Pain right hip 6. Impaired functional activity tolerance 7. Hard of hearing Impairments are contributing to the following functional limitations: 1. Inability to safely ambulate without assistive device 2. Increase completion time for mobility ADL performance 3. Increased fall risk 4. Difficulty performing stairs without assistance Patient is assessed as a low complexity based on the following: History: 85-year-old male with impairment level findings, functional limitations, and past medical history as indicated above Examination: Demonstrable impairment in strength, balance, and mobility level with underlying impairments and functional limitations as documented above Presentation: Stable Decision Making: Low Goals: N/A. PT evaluation and 1-2 treatment sessions only for functional mobility training using recommended AD and for HEP instruction. Plan of Care/Treatment Plan: N/A. PT evaluation and 1-2 treatment session only for functional mobility training using recommended AD and for HEP instruction. DISCHARGE RECOMMENDATIONS: Home with HEP TREATMENT CODE/TIME: [id number] Thank you for the opportunity to participate in the care of this patient. Eduarda Royal, PT [facility]
== END 2025-03-20 14:38 | disposition home or self-care (01) ==
LOC: SUR 08:29
PROVIDERS: PCP Specialist/Technologist Athletic Trainer; Visit Provider Student in an Organized Health Care Education/Training Program
PROC: (CPT 27130; principal; 2025-03-20 11:00)
DX: M16.11 Unilateral primary osteoarthritis, right hip (principal); I10 Essential (primary) hypertension; K21.9 Gastro-esophageal reflux disease without esophagitis; E11.69 Type 2 diabetes mellitus with other specified complication; N18.2 Chronic kidney disease, stage 2 (mild)
CPT/HCPCS: 20985; 27130; 97161; 97530; 73501; C1776; J0690; J1100; J1171; J2003; J2250; J2371; J2401; J2405; J2704; J3475

== ENCOUNTER 2025-04-02 14:46 | Outpatient (CLI) | payer MEDICARE, SELFPAY ==
--- NOTE | 2025-04-02 13:15 | DI.RAD_ITS ---
Exam(s) XR HIP RT COMPLETE AP PELVIS EXAM: XR HIP RT COMPLETE AP PELVIS CLINICAL HISTORY: 1ST POST OP S/P R KAREN. TECHNIQUE: 2D digital imaging was performed. Two views COMPARISON: CR XR HIP RT COMPLETE AP PELVIS from 01/08/2025 FINDINGS: BONES: No acute fracture is present. No bony destructive lesion is seen. JOINTS: No dislocation present. Stable appearance of bilateral hip prostheses. SOFT TISSUE: Vascular calcifications. IMPRESSION: No acute abnormality. Stable appearance of bilateral hip prostheses. DATA REPOSITORY: RADIATION DOSE DELIVERED:
== END 2025-04-02 14:47 | disposition home or self-care (01) ==
LOC: DIORS 14:46
PROVIDERS: PCP Specialist/Technologist Athletic Trainer; Referring Provider Specialist/Technologist Athletic Trainer; Visit Provider Student in an Organized Health Care Education/Training Program
DX: Z47.1 Aftercare following joint replacement surgery (principal); Z96.641 Presence of right artificial hip joint
CPT/HCPCS: 99024; 73502

== ENCOUNTER → 2025-04-30 10:42 | Outpatient (BNVA) | payer MEDICARE, SELFPAY | PROVIDERS: PCP Specialist/Technologist Athletic Trainer; Referring Provider Specialist/Technologist Athletic Trainer; Visit Provider Physician Assistant | DX: Z47.1 Aftercare following joint replacement surgery (principal); Z96.641 Presence of right artificial hip joint | CPT/HCPCS: 99024 ==